=== PATIENT | male | born 1935 | race Caucasian/White ===

== ENCOUNTER 2018-03-26 22:52 | Inpatient (IN) | payer MEDICARE, OTHER ==
[~2018-03-26] VITALS: Ht 152.4 cm; Wt 74.8 kg
[2018-03-27] VITALS (57 sets, daily range): BP systolic 64–148; BP diastolic 36–64
[2018-03-27] MEDS ORDERED: ONDANSETRON HCL/PF 4 MG/2 ML VIAL IVP PRN (02:00)
--- NOTE | 2018-03-27 02:00 | NUR ---
PT ARRIVED DIRECT ADMISSION FROM [facility], ORALLY INTUBATED WITH A 7.5CM E.T.T @ 24MM LIP LINE, PT CURRENTLY ON MECH VENT WITH THE FOLLOWING SETTINGS OF: AC R16 VT 500 FIO2 40% PEEP+5. MECH VENT PLUGGED INTO RED OUTLET, BRAKES LOCKED, AND VENT ALARMS ARE SET AND AUDIBLE, PT AMBU BAG FOUND AT THE HEAD OF BED. PT WAS SUCTIONED AND LARGE AMOUNT OF THICK BARRETT RED TINGED SECRETIONS DRAWN BOTH ORALLY AND DOWN ETT. PT AWAKE ALERT AND TOLERATING SETTINGS WELL, MASON CHISHOLM AWARE AND AT BEDSIDE Addendum: 03/27/18 at 0207 by SINAI CRENSHAW RT Amended: Links added.
[2018-03-27] MEDS ORDERED: IV NS 0.9% 1,000 ML IV PRN (02:30)
[2018-03-27] MEDS: PROPOFOL 100 ML IV PRN ×3 (02:43→22:27)
[2018-03-27] MEDS ORDERED: PIPERACILLIN /TAZOBACTAM 3.375 G VIAL IV ONE (02:54)
[2018-03-27] MEDS ORDERED: ZOSYN IVPB 3.375 G in IV D5W 50ml IV ONE (03:00)
[2018-03-27] MEDS: PANTOPRAZOLE 40 MG VIAL IV SCH ×3 (03:01→20:58)
--- NOTE | 2018-03-27 03:20 | NUR ---
MOBILE DISC JOCKEY. ADMISSION RECEIVED THE PT FROM [facility],ORALLY INTUBATED. SEDATED WITH DIPRIVAN. FC INTACT. IV RT AND LT HAND OGT INTACT. ETT 7.5, LIP 24CM,AC 16,TV 500, FIO2 40%, PEEP 5. SAT 98%. INTERNATIONAL FIRST OFFICER SHOWING NSR. RABIA SOFT WRIST RESTRAINT. AFEBRILE. WILL CONTIN UE TO MONITOR VITALS.
--- NOTE | 2018-03-27 03:26 | NUR ---
PICTURE FRAMER.EGD AT 0800. CONSENT TAKEN AND PLACED IN THE CHART. PT IS NPO.
[2018-03-27 04:53] LABS: BASOPHILS % (AUTO) 0.3 % (0.0-2.0); EOSINOPHILS % (AUTO) 0.2 % (0.0-6.0); HEMATOCRIT 36 % (39-51); HEMOGLOBIN 11.9 g/dL (13.5-17.5); LYMPHOCYTES # (AUTO) 1.6 /CMM (0.8-4.8); MEAN CORPUSCULAR HGB CONC 33 g/dl (31.0-36.0); MEAN CORPUSCULAR VOLUME 93 fL (80-96); MONOCYTES % (AUTO) 7.7 % (2.0-12.0); NEUTROPHILS # (AUTO) 10.5 /CMM (1.8-8.9); NEUTROPHILS % (AUTO) 79.8 % (43.0-81.0); PLATELET COUNT (AUTO) 125 /CMM (150-450); RED BLOOD CELL COUNT(AUTO) 3.89 MIL/uL (4.5-6.0); WHITE BLOOD COUNT (AUTO) 13.1 K/uL (4.3-11.0)
--- NOTE | 2018-03-27 05:01 | NUR ---
GLASS TOUGHENING OPERATOR. AM CARE, ORAL ACRE, BED BATH GIVEN. LINEN CHANGED. REMAINING SAME VENT SETTING TOLERATED WELL. SAT 99%. MO ACUTE DISTRESS NOTED. FIRE PREVENTION INSPECTOR SHOWING NSR, IV RT AND LT HAND IVF NS 75ML/H, DIPRIVAN 30MCG/KG/MIN. OGT INTACT. PT IS NPO. RABIA SOFT WRIST RESTRAINT CHECKED AND RELEASED. NO INJURY OR REDNESS NOTED. FC PATENT URINE DRAINING. HOB ELEVATED. TURN AND REPOSITION Q2H. AFEBRILE. WILL CONTINUE TO MONITOR VITALS.
[2018-03-27 05:10] LABS: CARBON DIOXIDE 32 mmol/L (21-32); CHLORIDE 113 mmol/L (98-107); CREATININE 1.3 mg/dL (0.6-1.3); GLUCOSE 144 mg/dL (74-106); MAGNESIUM 1.7 mg/dL (1.8-2.4); PHOSPHORUS 2.5 mg/dL (2.5-4.9); POTASSIUM 3.8 mmol/L (3.5-5.1); SODIUM SERUM 149 mmol/L (136-145); UREA NITROGEN, BLOOD 34 mg/dL (7-18)
--- NOTE | 2018-03-27 07:30 | NUR ---
ICU/RN: Poison control called, updated - for EGD today at 0800. Spoke with Padmini Morris, Rx. [facility] ICU phone number provided. Poison control to call back to f/u EGD results.
[2018-03-27] MEDS: Magnesium 1GM/D5W 100ML PREMIX 100 ML IV SCH ×2 (07:45→08:44)
[2018-03-27] MEDS ORDERED: ANESTHESIA TRAY IN PYXIS 1 EA TRAY MC ONE (08:00)
[2018-03-27] MEDS ORDERED: ETOMIDATE 2 MG/ML VIAL ONE (08:07)
--- NOTE | 2018-03-27 08:30 | NUR ---
ICU/RN: S/P EGD by Dr Martinez. Per , "unable to visualize mucosa. Necrosis noted throughout esophagus to gastric fundus." Findings dw Dr Alarcon. Pt tolerated procedure well, VSS. New orders noted and carried out.
--- NOTE | 2018-03-27 08:52 | NUR ---
RT NOTE RECEIVED PT MECHANICALLY VENTILATED VIA 7.5 ETT 24 CM AT LIP. CUFF INFLATED. ETT SECURE. VENTILATOR SETTINGS FOLLOW AC 16 500 40% +5. BILATERAL CHEST RISE NOTEDF. ALARMS SET PER PROTOCOL AND AUDIBLE. VENT PLUGGED IN TO RED OUTLET. AMBU BAG AT BED SIDE. NO DISTRESS NOTED AT MOMENT. Addendum: 03/27/18 at 0854 by ELIOT VENCES RT Amended: Links added.
[2018-03-27] MEDS ORDERED: PIPERACILLIN /TAZOBACTAM 3.375 G in IV D5W 50 ML IV SCH (09:00)
[2018-03-27 09:40] LABS: ABG BASE EXCESS 5.5 mmol/L; ABG OXYGEN SATURATION 97.3 % (92.0-98.5); ABG PCO2 36.5 mmHg (35.0-45.0); ABG PH 7.512 (7.350-7.450); ABG PO2 98.9 mmHg (75.0-100.0); AaDO2 144.3 mmHg; COHb 0.4 % (0.5-1.5); MetHb 0.6 % (0.0-1.5); O2Hb 96.3 % (94.0-97.0); SITE, ABG Left Radial; VENT MODE, BG AC 16 550 40% +5
[2018-03-27] MEDS: PIPERACILLIN /TAZOBACTAM 3.375 G in IV D5W 100 ML IV SCH ×2 (09:54→17:32)
--- NOTE | 2018-03-27 10:30 | NUR ---
ICU/RN: Pt's and daughter at bedside; updated. Per daughter "I spoke with Dr Martinez," family is in agreement with plan.
[2018-03-27] MEDS ORDERED: IV NS 0.9% 1,000 ML IV ONE (12:30)
[2018-03-27] MEDS ORDERED: IV NS 0.9% 1,000 ML BAG IV PRN (12:30)
[2018-03-27] MEDS: IV NS 0.9% 1,000 ML IV PRN ×2 (12:33→19:06)
[2018-03-27] MEDS: ACETAMINOPHEN 650 MG/SUPP.RECT RC PRN (12:46)
--- NOTE | 2018-03-27 13:00 | NUR ---
ICU/RN: Pt noted with fever 102F, SBP in 70-80's. Placed on cooling measures, tylenol suppository administered. Dr Stein and Dr Alarcon aware, with orders for IV NS bolus. Cultures collected and sent. Will cont to monitor pt.
--- NOTE | 2018-03-27 15:00 | NUR ---
ICU/RN: Bed bath, hygienic care rendered. Placed on KCI mattress, turned and repositioned, heels offloaded. Pt tolerated well.
[2018-03-27] MEDS ORDERED: LOSA1TAB3 PO (17:42)
[2018-03-27] MEDS ORDERED: ASPI-605 PO (17:42)
[2018-03-27] MEDS ORDERED: FLUT1BLS IH (17:42)
[2018-03-27] MEDS ORDERED: CHOL100040 PO (17:42)
[2018-03-27] MEDS ORDERED: DUTA0.5C PO (17:42)
[2018-03-27] MEDS ORDERED: MECL-102 PO (17:42)
--- NOTE | 2018-03-27 19:13 | NUR ---
ICU/RN: Pt remains intubated in bed, tolerating current vent settings, sedated. IVF infusing well. FC draining well to gravity. Bedside report given to BRAN RN for JERRY.
--- NOTE | 2018-03-27 19:38 | NUR ---
curriculum supervisor. initial assessment.RECEIVED THE PT REST ON THE BED. ORALLY INTUBATED. SEDATED WITH DIPRIVAN. ETT 7.5,LIP 24CM.AC 16,TV 500,FIO2 40%. SAT 98%. NO ACUTE DISTRESS NOTED. TOOL FILER SHOWING NSR. IV RT AND LT HAND, IVF NS 150ML/H,DIPRIVAN 30MCG/KG/MIN, OGT INTACT. HOB ELEVATED, RABIA SOFT WRIST RESTRAINT CHECKED AND RELEASED. NO INJURY OR REDNESS NOTED, PT IS NPO. WILL CONTINUE TO MONITOR VITALS.
--- NOTE | 2018-03-27 19:55 | NUR ---
RT PT RECEIVED INTUBATED ON [facility] VENT W/ NOTED SETTING. ETT 7.5 @ 25CM LIP. ETT PATENT AND SECURE. BREATHSOUNDS BILATERAL. SX MOD AMOUNT OF THICK GREEN SECRETIONS. PT TOLERATING SETTING WELL. WILL CONTINUE TO MONITOR. Addendum: 03/27/18 at 1957 by GERMAN PRATT RT Amended: Links added.
[2018-03-27] MEDS: IV D5/0.45 NACL 1,000 ML IV PRN (23:26)
[2018-03-28] VITALS (70 sets, daily range): BP systolic 80–148; BP diastolic 39–119
[2018-03-28] MEDS: PIPERACILLIN /TAZOBACTAM 3.375 G in IV D5W 100 ML IV SCH ×3 (01:39→17:40)
--- NOTE | 2018-03-28 03:10 | NUR ---
DISSOLVER OPERATOR AM CARE. ORAL CARE BED BATH GIVEN. LINEN CHANGED. REMAINING SAME VENT SETTING TOLERATED WELL. SAT 98%. WIRELESS DEVELOPMENT MANAGER SHOWING S ROJAS. FC PATENT. URINE DRAINING. OGT CLAMPED. RABIA SOFT WRIST RESTRAINT CHECKED AND RELEASED, NO INJURY OR REDNESS NOTED. HOB ELEVATED. NPO. TURN AND REPOSITION Q2H. TEMPERATURE 99. WILL CONTINUE TO MONITOR VITALS,
[2018-03-28 04:34] LABS: BASOPHILS # (AUTO) 0.1 /CMM (0.0-0.2); BASOPHILS % (AUTO) 0.5 % (0.0-2.0); EOSINOPHILS % (AUTO) 0.4 % (0.0-6.0); HEMATOCRIT 35 % (39-51); HEMOGLOBIN 11.4 g/dL (13.5-17.5); LYMPHOCYTES # (AUTO) 1.9 /CMM (0.8-4.8); LYMPHOCYTES % (AUTO) 13.5 % (20.0-44.0); MEAN CORPUSCULAR HGB CONC 33 g/dl (31.0-36.0); MEAN CORPUSCULAR VOLUME 94 fL (80-96); MONOCYTES # (AUTO) 0.6 /CMM (0.1-1.30); MONOCYTES % (AUTO) 4.3 % (2.0-12.0); NEUTROPHILS # (AUTO) 11.4 /CMM (1.8-8.9); NEUTROPHILS % (AUTO) 81.3 % (43.0-81.0); PLATELET COUNT (AUTO) 105 /CMM (150-450); RED BLOOD CELL COUNT(AUTO) 3.67 MIL/uL (4.5-6.0)
[2018-03-28 04:52] LABS: ALANINE AMINOTRANSFERASE 19 U/L (12-78); ALBUMIN 2.2 g/dL (3.4-5.0); ALKALINE PHOSPHATASE 43 U/L (46-116); ASPARTATE AMINOTRANSFERASE 22 U/L (15-37); BILIRUBIN,TOTAL 0.6 mg/dL (0.2-1.0); CALCIUM, SERUM 7.1 mg/dL (8.5-10.1); CARBON DIOXIDE 27 mmol/L (21-32); CHLORIDE 106 mmol/L (98-107); CREATININE 1.3 mg/dL (0.6-1.3); PHOSPHORUS 2.3 mg/dL (2.5-4.9); POTASSIUM 3.1 mmol/L (3.5-5.1); SODIUM SERUM 140 mmol/L (136-145); TOTAL PROTEIN, SERUM 4.9 g/dL (6.4-8.2); UREA NITROGEN, BLOOD 26 mg/dL (7-18)
[2018-03-28 04:58] LABS: CHOLESTEROL 103 mg/dL (<200); HDL CHOLESTEROL 32 mg/dL (40-60); LDL 57 mg/dL (0-99); THYROID STIMULATING HORMONE 1.041 uIU/mL (0.358-3.74); TRIGLYCERIDES 103 mg/dL (30-150)
[2018-03-28 05:03] LABS: GLUCOSE 459 mg/dL (74-106)
--- NOTE | 2018-03-28 05:15 | NUR ---
LAB CALLED FOR BLOOD SUGAR IS 459. ACCU CHECK BLOOD SUGAR IS 117. CALLED THE LAB AND ORDERED REDRAW. WILL CONTINUE TO MONITOR.
[2018-03-28] MEDS: PROPOFOL 100 ML IV PRN ×3 (06:05→17:55)
--- NOTE | 2018-03-28 07:47 | NUR ---
INITIAL OUTREACH ASSISTANT NOTE RCVD PT SEDATED ON DIPRIVAN, INTUBATED TOLERATING ORDERED VENT SETTINGS WELL. BILATERAL SOFT WRIST RESTRAINTS IN PLACE, CIRCULATION CHECKS DONE. SR ON MONITOR WITH OCCASIONAL PAC's, OG-TUBE CLAMPED, PLACEMENT VERIFIED BY AUSCULTATION/ASPIRATION OF BROWN COLORED GASTRIC CONTENTS AND CHEST X-RAY, CARSON TO GRAVITY DRAINING ALLEN COLORED URINE. IV SITES C/D/I/PATENT. NO S/O INFILTRATION/PHLEBITIS OBSERVED IVF INFUSING ORDERED. WILL CONTINUE TO MONITOR PT FOR SAFETY AND COMFORT BED IN LOW AND LOCKED POSITION. CALL LIGHT WITHIN REACH. HEAD OF BED ELEVATED.
[2018-03-28] MEDS ORDERED: POTASSIUM PHOSPHATE MM 15 MMOL in IV D5W 250 ML IV SCH (08:00)
[2018-03-28] MEDS: PANTOPRAZOLE 40 MG VIAL IV SCH ×2 (09:22→21:18)
[2018-03-28] MEDS: POTASSIUM PHOSPHATE MM 7.5 MMOL in IV D5W 100 ML IV SCH ×2 (09:22→11:53)
[2018-03-28] MEDS: Z GUARD REMEDY 2 OZ OINT TP PRN (09:23)
[2018-03-28] MEDS: ACETAMINOPHEN 650 MG/SUPP.RECT RC PRN ×2 (09:23→17:39)
--- NOTE | 2018-03-28 10:07 | NUR ---
SEDATION VACATION PT'S FAMILY AT BEDSIDE SPEAKING TO PT IN [facility]. PT ABLE TO OPEN EYES TO NAME AT TIMES BUT NOT FOLLOWING COMMANDS. PER FAMILY PT'S HARD OF HEARING. UNABLE TO DETERMINE LEVEL OF COMPREHENSION.
--- NOTE | 2018-03-28 10:56 | NUR ---
LASER SET UP OPERATOR NOTE DR. SANTIAGO CAME TO ASSESS PT, PT'S FAMILY AT BEDSIDE DISCUSSED WITH DR. SANTIAGO PLAN TO DO BRONCHOSCOPY ON FRIDAY. PER PT'S DAUGHTER, JESSICA SHE WILL DISCUSS THE RECOMMENDATIONS WITH HER BROTHER AND DECIDE. DR. SLOAN IN UNIT UPDATED ON PT'S CONDITION AND REQUESTED PICC LINE INSERTION TO START TPN NUTRITION. ORDER PLACED. PT'S DAUGHTER WILL DISCUSS WITH FAMILY AND DECIDE PRIOR TO CONSENTING FOR LINE INSERTION. WILL F/U.
[2018-03-28] MEDS: IV D5/0.45 NACL 1,000 ML IV PRN ×2 (11:54→23:38)
--- NOTE | 2018-03-28 14:01 | NUR ---
EMPLOYEE SERVICE OFFICER NOTE JESSICA, PT'S DAUGHTER PROVIDED CONSENT FOR PICC LINE INSERTION. HORTENCIA DYER CO-SIGNED CONSENT. BRONCHOSCOPY CONSENT STILL PENDING. WILL F/U.
--- NOTE | 2018-03-28 18:46 | NUR ---
PERFORMANCE SOLUTIONS SPECIALIST NOTE PT REMAINS STABLE, SEDATED, INTUBATED TOLERATING ORDERED VENT SETTINGS. SB ON MONITOR WITH OCCASIONAL PAC's, OG-TUBE CLAMPED, CARSON TO GRAVITY DRAINING ALLEN COLORED URINE. PICC LINE PLACED AND DR. VASQUEZ INFORMED TO PROCEED WITH TPN. WILL CONTINUE TO MONITOR PT FOR SAFETY AND COMFORT. BED IN LOW AND LOCKED POSITION. CALL LIGHT WITHIN REACH. HEAD OF BED ELEVATED.
--- NOTE | 2018-03-28 19:00 | NUR ---
MMA FIGHTER NOTES Received patient orally intubated on AC mode,not in nay distress,breathing unlabored,on mild sedation with Propofol RASS -2,opens eyes,+ strong cough and gag,moves both arms and legs but weakly. OGT clamped.Comfort care done,needs attended.
[2018-03-29] VITALS (38 sets, daily range): BP systolic 45–158; BP diastolic 39–64
--- NOTE | 2018-03-29 | NUR ---
SUPERVISOR PILE DRIVING NOTES STATUS UNCHANGED,STABLE,NOT IN ANY DISTRESS,MILDLY SEDATED,AROUSABLE,OPENS EYES,MOVES EXTREMITIES,DOES NOT FOLLOW COMMANDS.
[2018-03-29] MEDS: PROPOFOL 100 ML IV PRN ×3 (02:01→20:01)
[2018-03-29] MEDS: PIPERACILLIN /TAZOBACTAM 3.375 G in IV D5W 100 ML IV SCH ×3 (02:01→17:06)
--- NOTE | 2018-03-29 04:00 | NUR ---
TIMBER HARVESTER OPERATOR NOTES REMAINS STABLE,NOT IN ANY DISTRESS, STILL ON PROPOFOL (MILDLY SEDATED) STILL RESPONSIVE TO VERBAL STIMULI,OPENS EYES,MOVES EXTREMITIES.
[2018-03-29 04:39] LABS: BASOPHILS % (AUTO) 0.3 % (0.0-2.0); EOSINOPHILS % (AUTO) 1.3 % (0.0-6.0); HEMATOCRIT 30 % (39-51); HEMOGLOBIN 10.1 g/dL (13.5-17.5); LYMPHOCYTES # (AUTO) 1.4 /CMM (0.8-4.8); LYMPHOCYTES % (AUTO) 10.9 % (20.0-44.0); MEAN CORPUSCULAR HGB CONC 34 g/dl (31.0-36.0); MEAN CORPUSCULAR VOLUME 93 fL (80-96); MONOCYTES # (AUTO) 0.7 /CMM (0.1-1.30); MONOCYTES % (AUTO) 5.1 % (2.0-12.0); NEUTROPHILS # (AUTO) 10.7 /CMM (1.8-8.9); NEUTROPHILS % (AUTO) 82.4 % (43.0-81.0); PLATELET COUNT (AUTO) 87 /CMM (150-450); RED BLOOD CELL COUNT(AUTO) 3.24 MIL/uL (4.5-6.0); WHITE BLOOD COUNT (AUTO) 12.9 K/uL (4.3-11.0)
[2018-03-29 04:45] LABS: CALCIUM, SERUM 7.6 mg/dL (8.5-10.1); CARBON DIOXIDE 29 mmol/L (21-32); CHLORIDE 108 mmol/L (98-107); CREATININE 1.1 mg/dL (0.6-1.3); GLUCOSE 113 mg/dL (74-106); PHOSPHORUS 2.6 mg/dL (2.5-4.9); POTASSIUM 3.1 mmol/L (3.5-5.1); SODIUM SERUM 142 mmol/L (136-145); UREA NITROGEN, BLOOD 24 mg/dL (7-18)
--- NOTE | 2018-03-29 07:10 | NUR ---
SCHOOL BUS INSPECTOR NOTES REMAINS STABLE,REPORT GIVEN TO DAY SHIFT RN. AFSATU
--- NOTE | 2018-03-29 07:30 | NUR ---
EPIDEMIOLOGIST INITIAL NOTES: RECEIVED PT FROM NIGHTSILFT NURSE IN STABLE CONDITION. PT IS SEDATED AND ON A DIPROVAN DRIP AT 20MIC.. NO SOB OR ACUTE SIGNS OF DISTRESS NOTED. BREATHING IS EVEN AND UNLABORED. PT ON BIPAP 18/5 WITH A RATE OF 16 AND AN FIO2 OF 50% AND A CURRENT 02 SAT OF 96%. HE DENIES ANY PAIN AT THIS TIME. CARSON CATHETER NOTED TO BE INTACT AND DRAINING. LEFT UPPER ARM MIDLINE AND LEFT FA PERIPHERAL IVS NOTED TO BE PATENT AND INTACT. NO REDNESS OR SIGNS OF INFILTRATION NOTED. BED IN LOW LOCKED POSITION, SIDE RIALS UP X2, CALL LIGHT WITHIN REACH. WILL CONTINUE TO MONITOR Addendum: 03/29/18 at 1051 by ANDREZ VOGT RN PLEASE DISREGARD THIS NOTE
--- NOTE | 2018-03-29 07:36 | NUR ---
COAT JOINER LOCKSTITCH INITIAL NOTES: RECEIVED PT FROM NIGHTSOHFT NURSE IN STABLE CONDITION. PT IS SEDATED AND ON A DIPRIVAN DRIP AT 20MCG. NO SOB OR ACUTE SIGNS OF DISTRESS NOTED. BREATHING IS EVEN AND UNLABORED. PT INTUBATED (7.5, 24CM AT PT'S LIP, RATE OF 16, TV 500, PEEP 0). CARSON CATHETER NOTED TO BE INTACT AND DRAINING. RIGHT UPPER ARM PICC NOTED TO BE PATENT AND INTACT. PT TOLERATING D5 1/2 NS INFUSION WELL. NO REDNESS OR SIGNS OF INFILTRATION NOTED. BILATERAL SOFT WRIST RESTRAINTS NOTED FOR FURTHER SAFETY AND SELF EXTUBATION PREVENTION. GOOD PERIPHERAL CAP REFILL NOTED ALONG WITH PULSES. BED IN LOW LOCKED POSITION, SIDE RIALS UP X3, CALL LIGHT WITHIN REACH. WILL CONTINUE TO MONITOR
[2018-03-29] MEDS: PANTOPRAZOLE 40 MG VIAL IV SCH ×2 (08:33→20:59)
[2018-03-29] MEDS: IV D5/0.45 NACL 1,000 ML IV PRN (08:34)
[2018-03-29] MEDS: POTASSIUM CL. PREMIX PERIPHER. 50 ML IV SCH ×4 (09:38→12:49)
[2018-03-29] MEDS ORDERED: DEXTROSE 50%-WATER 50 ML DISP.SYRIN IV PRN (10:30)
[2018-03-29] MEDS ORDERED: TPN/PPN PER PHARMACY XX PRN (10:30)
[2018-03-29 11:53] LABS: ABG BASE EXCESS -0.2 mmol/L; ABG OXYGEN SATURATION 97.4 % (92.0-98.5); ABG PCO2 36.8 mmHg (35.0-45.0); ABG PO2 108.2 mmHg (75.0-100.0); AaDO2 134.7 mmHg; COHb 0.3 % (0.5-1.5); MetHb 0.8 % (0.0-1.5); O2Hb 96.3 % (94.0-97.0); PEEP,BG 5 cm H2O; SITE, ABG Right Radial; VT, ABG 500 mL
[2018-03-29] MEDS: BLOOD SUGAR DIAGNOSTIC 1 EACH STRIP IN SCH ×3 (12:00→23:25)
[2018-03-29] MEDS ORDERED: FEE TPN 1 MIN EA MC ONE (12:30)
[2018-03-29] MEDS ORDERED: TPN BAG #1 IV PRN ×5 (12:30)
--- NOTE | 2018-03-29 18:02 | NUR ---
CLIENT SUCCESS MANAGER NOTES: GI CONSULT (PASCUAL BUNK HOUSE WORKER ORDERS) PASCUAL GI BUNK HOUSE WORKER AT BEDSIDE AND UPDATED ON PT'S CONDITION. PER BUNK HOUSE WORKER "ORDER CARAFATE KENDY 1G TID VIA OG TUBE"
--- NOTE | 2018-03-29 18:55 | NUR ---
FLOOR COVERING PRINTER ASSISTANT CLOSING NOTES PT REMAINS STABLE ON FULL VENT SUPPORT. NO SOB OR ACUTE SIGNS OF DISTRESS NOTED. BP STABLE AT THIS TIME. AM AND PRN CARE PROVIDED. PT REPOSITIONED AND TURNED PER HOSPITAL PROTOCOL. RIGHT UPPER ARM PICC REMAINS PATENT AND INTACT. PT TOLERATING TPN , IV FLUIDS, AND DIPRIVAN DRIP AT 25MIC. SAFETY MEASURES IN PLACE. CARSON CATHETER REMAINS PATENT AND INTACT. VSS. WILL ENDORSE TO NIGHTSHIFT RN FOR JERRY
--- NOTE | 2018-03-29 19:30 | NUR ---
SUPERVISOR SHUTTLE PREPARATION NOTE PT [facility]CE[facility] WITH SETTINGS WELL TOLERATED AND SATURATING 100%. ETT 7.5 AND 24 @ THE LIP. HOB ELEVATED AND ON ASPIRATION PRECAUTIONS. BREATHING UNLABORED. TELE-SB 50. OG TUBE IN PLACE WITH POSITIVE PLACEMENT AND CLAMPED. IV R ARM #18 AND L WRIST #20 CLEAN, DRY AND PATENT. IV BALAJI PICC WITH TPN INFUSING @ 50ML/HR, DIP @ 25 MCG/KG/MIN, AND D5 1/2 NS INFUSING @ 50 ML/HR. CARSON CATHETER IN PLACE AND DRAINING BY GRAVITY. WILL CONTINUE TO MONITOR.
--- NOTE | 2018-03-29 20:00 | NUR ---
PT RECEIVED INTUBATED ON [facility] VENT W/ NOTED SETTING. ETT 7.5 @ 25CM LIP. ETT PATENT AND SECURE. BREATH SOUNDS BILATERAL. SX MOD AMOUNT OF THICK GREEN SECRETIONS. PT TOLERATING SETTING WELL. WILL CONTINUE TO MONITOR. Addendum: 03/29/18 at 2000 by DILEEP KINNEY RT Amended: Links added.
[2018-03-29] MEDS: ACETAMINOPHEN 650 MG/SUPP.RECT RC PRN (20:59)
[2018-03-30] VITALS (57 sets, daily range): BP systolic 90–177; BP diastolic 35–88
[2018-03-30] MEDS: PIPERACILLIN /TAZOBACTAM 3.375 G in IV D5W 100 ML IV SCH ×3 (01:14→17:41)
[2018-03-30] MEDS: IV D5/0.45 NACL 1,000 ML IV PRN ×2 (03:00→22:51)
[2018-03-30 04:42] LABS: BASOPHILS # (AUTO) 0.1 /CMM (0.0-0.2); BASOPHILS % (AUTO) 0.5 % (0.0-2.0); EOSINOPHILS % (AUTO) 2.5 % (0.0-6.0); HEMATOCRIT 31 % (39-51); HEMOGLOBIN 10.3 g/dL (13.5-17.5); LYMPHOCYTES # (AUTO) 2.3 /CMM (0.8-4.8); LYMPHOCYTES % (AUTO) 20.6 % (20.0-44.0); MEAN CORPUSCULAR HGB CONC 33 g/dl (31.0-36.0); MEAN CORPUSCULAR VOLUME 93 fL (80-96); MONOCYTES # (AUTO) 0.6 /CMM (0.1-1.30); MONOCYTES % (AUTO) 5.2 % (2.0-12.0); NEUTROPHILS # (AUTO) 7.8 /CMM (1.8-8.9); NEUTROPHILS % (AUTO) 71.2 % (43.0-81.0); PLATELET COUNT (AUTO) 94 /CMM (150-450); RED BLOOD CELL COUNT(AUTO) 3.35 MIL/uL (4.5-6.0)
[2018-03-30 04:51] LABS: CALCIUM, SERUM 7.8 mg/dL (8.5-10.1); CARBON DIOXIDE 26 mmol/L (21-32); CHLORIDE 109 mmol/L (98-107); CREATININE 1.1 mg/dL (0.6-1.3); GLUCOSE 120 mg/dL (74-106); PHOSPHORUS 3.1 mg/dL (2.5-4.9); POTASSIUM 3.5 mmol/L (3.5-5.1); SODIUM SERUM 142 mmol/L (136-145); UREA NITROGEN, BLOOD 21 mg/dL (7-18)
[2018-03-30] MEDS: PROPOFOL 100 ML IV PRN ×3 (05:06→18:24)
[2018-03-30] MEDS: BLOOD SUGAR DIAGNOSTIC 1 EACH STRIP IN SCH ×4 (05:06→23:20)
--- NOTE | 2018-03-30 06:46 | NUR ---
APPRENTICE PATTERN MAKER NOTE PT REMAINED STABLE DURING SHIFT. NO ACUTE DISTRESS NOTED. VENT SETTINGS WELL TOLERATED. ETT 7.5 AND 24CM AT UPPER LIP. SUCTIONED NEEDED. REPOSITIONED Q2H. ALL NEEDS ATTENDED TO PROMPTLY. KEPT CLEAN AND DRY. AFEBRILE. IV FLUIDS INFUSING. WILL ENDORSE TO NEXT SHIFT FOR CONTINUITY OF CARE.
--- NOTE | 2018-03-30 08:16 | NUR ---
INITIAL OCCUPATIONAL HEALTH RN NOTE RCVD PT SEDATED ON DIPRIVAN AROUSES TO PAINFUL STIMULI, INTUBATED ETT 7.5 24 AT UPPER LIP LINE, TOLERATING ORDERED VENT SETTINGS. SB ON MONITOR. OG-TUBE PLACEMENT VERIFIED BY AUSCULTATION/ASPIRATION OF GASTRIC CONTENTS. CARSON TO GRAVITY DRAINING ALLEN COLORED URINE. IV SITES C/D/I/PATENT. NO S/O INFILTRATION/PHLEBITIS OBSERVED IVF INFUSING ORDERED. WILL CONTINUE TO MONITOR PT FOR SAFETY AND COMFORT. BED IN LOW AND LOCKED POSITION. CALL LIGHT WITHIN REACH. HEAD OF BED ELEVATED.
[2018-03-30 08:58] LABS: ABG BASE EXCESS -1.2 mmol/L; ABG OXYGEN SATURATION 97.2 % (92.0-98.5); ABG PCO2 37.9 mmHg (35.0-45.0); ABG PH 7.405 (7.350-7.450); ABG PO2 99.2 mmHg (75.0-100.0); AaDO2 106.3 mmHg; COHb 0.3 % (0.5-1.5); MetHb 0.5 % (0.0-1.5); O2Hb 96.4 % (94.0-97.0); SITE, ABG Left Radial; VENT MODE, BG AC 16 500 35% +0
[2018-03-30] MEDS: PANTOPRAZOLE 40 MG VIAL IV SCH ×2 (09:25→20:25)
[2018-03-30] MEDS: SUCRALFATE 1 G/10 ML UDC GT SCH ×3 (09:25→17:32)
[2018-03-30] MEDS ORDERED: TPN BAG #2 IV PRN ×6 (11:30)
--- NOTE | 2018-03-30 11:34 | NUR ---
RT RECD PT INTUBATED WITH 7.5 ETT AT 24CM LIP [facility] YVONNE ORDERED SETTING ALARMS ON AND AUDIBLE BAG AND MASK AT HOB VENT PLUGGED IN RED OUTLET, SX THICK YELLOW SECRETIONS. ABG DRAWN AND GIVE TO DR SANTIAGO NO RESP DISTRESS ATT WILL OCNT TO MONITOR . BRONCH SCHEDULE IN THE AFTERNOON
[2018-03-30] MEDS ORDERED: HYDROMORPHONE INJ 2 MG/ML DISP.SYRIN ONE (14:24)
[2018-03-30] MEDS ORDERED: TPN BAG #3 IV PRN ×3 (14:30)
[2018-03-30] MEDS ORDERED: HYDROMORPHONE INJ 2 MG/ML DISP.SYRIN IV ONE (14:30)
--- NOTE | 2018-03-30 15:10 | NUR ---
SCREW CUTTER NOTE BRONCHOSCOPY DONE AT BEDSIDE, PT TOLERATED PROCEDURE WELL ONCE FULLY SEDATED. DR. SANTIAGO, 2 RT's AND RN AT BEDSIDE MONITORING PT. VITAL SIGNS REMAINED STABLE THROUGHOUT PROCEDURE (PLEASE REFER TO FLOW-SHEET). DR. SANTIAGO SPOKE WITH PT'S DAUGHTER, JESSICA OVER THE PHONE UPDATING HER ON PT'S STATUS. WILL CONTINUE TO MONITOR PT AND TITRATING DIPRIVAN TO RASS -2.
--- NOTE | 2018-03-30 18:41 | NUR ---
FINISHING LAB TECHNICIAN NOTE PT REMAINS STABLE, INTUBATED, LIGHTLY SEDATED RASS -2, TOLERATING ORDERED VENT SETTINGS WELL, SB WITH OCCASIONAL PACs ON MONITOR (DR. BURGER INFORMED ABOUT PT'S LOW HR 39 THIS AM AND SHOWN ECG DONE DURING STEWARD/STEWARDESS THIRD). OG-TUBE CLAMPED PLACEMENT VERIFIED BY ASPIRATION OF GASTRIC CONTENTS. CARSON TO GRAVITY DRAINING YELLOW URINE. IV SITES C/D/I/PATENT. NO S/O INFILTRATION/PHLEBITIS OBSERVED, IVF INFUSING ORDERED. PT'S CARE WILL BE ENDORSED TO STEWARD/STEWARDESS THIRD RN FOR CONTINUITY OF CARE. BED IN LOW AND LOCKED POSITION. CALL LIGHT WITHIN REACH. HEAD OF BED ELEVATED. BILATERAL WRIST RESTRAINTS IN PLACE, CIRCULATION CHECKS DONE.
--- NOTE | 2018-03-30 19:30 | NUR ---
CONDENSER TUBE TENDER NOTE PT [facility]. [facility] WITH SETTINGS WELL TOLERATED AND SATURATING 100%. ETT 7.5 AND 25 @ THE LOWER LIP. HOB ELEVATED AND ON ASPIRATION PRECAUTIONS. BREATHING UNLABORED. AFEBRILE. TELE-SB 48. OG TUBE IN PLACE WITH POSITIVE PLACEMENT, NO RESIDUALS AND CLAMPED. IV R ARM #18 AND L WRIST #20 CLEAN, DRY AND PATENT. IV BALAJI PICC WITH TPN INFUSING @ 50ML/HR, DIP @ 20 MCG/KG/MIN, AND D5 1/2 NS INFUSING @ 50 ML/HR. CARSON CATHETER IN PLACE AND DRAINING BY GRAVITY. WILL CONTINUE TO MONITOR.
--- NOTE | 2018-03-30 20:58 | NUR ---
PT INTUBATED 7.5 ETT SECURED AT 25CM AT THE LIP. NO RESP DISTRESS NOTED. PT TOLERATING VENT SETTINGS. SX'D AND LAVAGE FOR SML AMT OF THIN WHITE SECRETIONS. VENT ALARMS SET AND AUDIBLE. AMBU BAG AT BEDSIDE. VENT PLUGGED INTO RED OUTLET. WILL CONTINUE TO MONITOR. Addendum: 03/30/18 at 2100 by JAMAL VELEZ RT Amended: Links added.
[2018-03-31] VITALS (51 sets, daily range): BP systolic 84–170; BP diastolic 34–102
[2018-03-31] MEDS: PIPERACILLIN /TAZOBACTAM 3.375 G in IV D5W 100 ML IV SCH ×3 (02:10→17:04)
[2018-03-31 04:59] LABS: CALCIUM, SERUM 7.9 mg/dL (8.5-10.1); CARBON DIOXIDE 27 mmol/L (21-32); CHLORIDE 109 mmol/L (98-107); GLUCOSE 104 mg/dL (74-106); MAGNESIUM 1.7 mg/dL (1.8-2.4); PHOSPHORUS 2.5 mg/dL (2.5-4.9); POTASSIUM 3.3 mmol/L (3.5-5.1); SODIUM SERUM 141 mmol/L (136-145); UREA NITROGEN, BLOOD 21 mg/dL (7-18)
[2018-03-31] MEDS: PROPOFOL 100 ML IV PRN ×3 (05:09→18:43)
[2018-03-31] MEDS: BLOOD SUGAR DIAGNOSTIC 1 EACH STRIP IN SCH ×4 (05:09→23:39)
--- NOTE | 2018-03-31 07:30 | NUR ---
RECEIVED PATIENT SEDATED AWAKE TO LIGHT TOUCH CALM AND COOPERATIVE. VENT PER MD ORDER. ETT 7.5. IV SITE C/D/I/P WITH MEDICATIONS RUNNING PER SPREADSHEET. CARSON PATENT. SAFETY, SKIN, ASPIRATION PRECAUTIONS IN PLACE AND WILL MONITOR
--- NOTE | 2018-03-31 08:06 | NUR ---
DR BURGER AT BEDSIDE. UPDATED ON PATIENT. NO NEW ORDERS AT THIS TIME
[2018-03-31] MEDS: SUCRALFATE 1 G/10 ML UDC GT SCH ×3 (08:19→17:04)
[2018-03-31] MEDS: PANTOPRAZOLE 40 MG VIAL IV SCH ×2 (08:20→21:37)
[2018-03-31] MEDS: POTASSIUM CL. PREMIX PERIPHER. 50 ML IV SCH ×4 (09:15→13:28)
[2018-03-31] MEDS: Magnesium 1GM/D5W 100ML PREMIX 100 ML IV SCH ×2 (09:15→10:39)
--- NOTE | 2018-03-31 10:51 | NUR ---
DR SANTIAGO AND DR JOSE HARPER AT BEDSIDE Addendum: 03/31/18 at 1052 by CLINTON ALEXIS RN JAZZY PIZARRO AT BEDSIDE. OCTAVIO HARPER
[2018-03-31] MEDS ORDERED: TPN BAG # 5 IV PRN ×5 (11:00)
[2018-03-31] MEDS ORDERED: TPN BAG #4 IV PRN ×7 (11:00)
[2018-03-31] MEDS: INSULIN REGULAR, HUMAN 100 UNIT/ML 3 ML VIAL SQ PRN (12:30)
[2018-03-31] MEDS: Z GUARD REMEDY 2 OZ OINT TP PRN (12:35)
--- NOTE | 2018-03-31 17:43 | NUR ---
PASCUAL CONCEPCION AT BEDSIDE. AWARE PATIENT ABD SLIGHTLY DISTENDED AND FIRM. OK FOR KUB ROUTINE
--- NOTE | 2018-03-31 18:21 | NUR ---
RT END OF THE SHIFT REPORT; PT. 82 Y OLD MALE REC. @0700 AM ORALLY INTUBATED ETT # 7.5 @ 25CM LIP LINE WITH NOTED SETTINGS, AC,16,500, 35% ALARMS ARE SET. AND FUNCTIONAL/ VENT ON RED OUTLET, AMBU BAG AT THE BEDSIDE. EQUAL CHEST RISE NOTED. PT. NOT AWAKE AND OFF SEDATION SOME WHAT RESPONSIVE, HME CHANGED PT. YVONNE. WELL AND B/S BILATERALLY RHONCHI SUX'D FOR MOD AMT OF BROWN/REDDISH SECRETIONS. NO CHANGES. T/O SHIFT CONTINUE TO MONITOR AND REPORT WILL PASS TO PM SHIFT. Addendum: 03/31/18 at 1824 by LILLY CLOUD RT Amended: Links added.
[2018-03-31] MEDS: IV D5/0.45 NACL 1,000 ML IV PRN (18:44)
--- NOTE | 2018-03-31 19:14 | NUR ---
ALL DUE MEDS GIVEN AND ALL NEEDS MET. KUB TAKEN. REPORT GIVEN TO MASON ORTIZ FOR JERRY. IV SITES C/D/I/P AND MEDICATIONS PER ORDER; SEE SPREADSHEET. PATIENT VSS. AFEBRILE. SAFETY, SKIN, ASPIRATION PRECAUTIONS IN PLACE AND MONITORED THROUGHOUT DAY.
--- NOTE | 2018-03-31 19:24 | NUR ---
agricultural equipment salesperson. initial assessment. received the pt rest on the bed. orally intubated. sedated with diprivan. . ett 7.5cm,lip 25cm,ac 16,tv 500,fio2 35%. sat 100%. back padder showing nsr. iv rt upperarm piccline ivf d51/2ns 50ml/h,tpn 70ml/h, diprivan 35mcg/kg/min. ogt intact. fc patent. urine draining. sruthi soft wrist restraint checked and released. no injury or redness noted. pt is npo. will continue to monitor vitals.
[2018-03-31] MEDS: HYDROMORPHONE INJ 0.5 MG/0.5 ML SYRINGE IV PRN (21:37)
--- NOTE | 2018-03-31 21:41 | NUR ---
PT INTUBATED 7.5 ETT SECURED AT 25CM AT THE LIP. NO RESP DISTRESS NOTED. PT TOLERATING VENT SETTINGS. SX'D AND LAVAGE FOR SML AMT OF THIN WHITE SECRETIONS. VENT ALARMS SET AND AUDIBLE. AMBU BAG AT BEDSIDE. VENT PLUGGED INTO RED OUTLET. WILL CONTINUE TO MONITOR. Addendum: 03/31/18 at 2141 by JAMAL VELEZ RT Amended: Links added.
[2018-04-01] VITALS (44 sets, daily range): BP systolic 88–169; BP diastolic 32–80
[2018-04-01] MEDS: PIPERACILLIN /TAZOBACTAM 3.375 G in IV D5W 100 ML IV SCH ×3 (01:33→17:14)
[2018-04-01] MEDS: PROPOFOL 100 ML IV PRN ×4 (01:34→17:18)
--- NOTE | 2018-04-01 04:02 | NUR ---
PROTECTIVE SIGNAL SUPERINTENDENT AM CARE, GIVEN. REMAINING SAME VENT SETTING TOLERATED WELL. SAT 98%. NO ACUTE DISTRESS NOTED. SOFTWARE CONFIGURATION MANAGER SHOWING S ROJAS. IV RT UPPER ARM PICC LINE.REMAINING SAME IVF , TPN AND DIPRIVAN 25MCG/KG/MIN. FC PATENT. URINE DRAINING. OGT INTACT. CLAMPED. HOB ELEVATED. RABIA SOFT WRIST RESTRAINT RESTRAINT CHECKED AND RELEASED. NO INJURY OR REDNESS NOTED. WILL CONTINUE TO MONITOR VITALS.
[2018-04-01 04:23] LABS: BASOPHILS % (AUTO) 0.5 % (0.0-2.0); EOSINOPHILS % (AUTO) 2.3 % (0.0-6.0); HEMATOCRIT 27 % (39-51); LYMPHOCYTES # (AUTO) 1.1 /CMM (0.8-4.8); LYMPHOCYTES % (AUTO) 15.3 % (20.0-44.0); MEAN CORPUSCULAR HGB CONC 33 g/dl (31.0-36.0); MEAN CORPUSCULAR VOLUME 93 fL (80-96); MONOCYTES # (AUTO) 0.5 /CMM (0.1-1.30); MONOCYTES % (AUTO) 6.8 % (2.0-12.0); NEUTROPHILS # (AUTO) 5.4 /CMM (1.8-8.9); NEUTROPHILS % (AUTO) 75.1 % (43.0-81.0); PLATELET COUNT (AUTO) 106 /CMM (150-450); RED BLOOD CELL COUNT(AUTO) 2.93 MIL/uL (4.5-6.0); WHITE BLOOD COUNT (AUTO) 7.3 K/uL (4.3-11.0)
[2018-04-01 04:33] LABS: CALCIUM, SERUM 7.8 mg/dL (8.5-10.1); CARBON DIOXIDE 25 mmol/L (21-32); CHLORIDE 112 mmol/L (98-107); CREATININE 0.9 mg/dL (0.6-1.3); GLUCOSE 133 mg/dL (74-106); PHOSPHORUS 2.3 mg/dL (2.5-4.9); POTASSIUM 3.7 mmol/L (3.5-5.1); SODIUM SERUM 145 mmol/L (136-145); UREA NITROGEN, BLOOD 21 mg/dL (7-18)
[2018-04-01] MEDS: HYDROMORPHONE INJ 0.5 MG/0.5 ML SYRINGE IV PRN ×2 (05:42→15:56)
[2018-04-01] MEDS: BLOOD SUGAR DIAGNOSTIC 1 EACH STRIP IN SCH ×3 (05:46→17:24)
--- NOTE | 2018-04-01 07:15 | NUR ---
RN INITIAL NOTES: Rec'd pt on bed, sedated, not in any distress. On MV via ETT, sating at 100%. On telemonitor, SB 47bpm. Has OGT, clamped. Has FC draining to BSB w/ adequate yellowish UOP. Has BALAJI PICC line, TLC w/ Diprivan at 25 mcg, D5 1/2 NS x 50 cc/hr, & TPN x 70 cc/hr all infusing well. Has also BALAJI G18 & L wrist G20, SL w/ no s/sx of infection/infiltration noted. Safety precaution in place. Bed in lowest & locked pos. Will continue to monitor & attend pt needs. Per report pt is scheduled for bronchoscopy procedure at 4pm. Consent signed & secured.
--- NOTE | 2018-04-01 07:25 | NUR ---
RT Pt received orally intubated with a 7.5 ETT secured at 25cm at the lip line. Pt is currently sedated at this time but responds to stimuli when sx'd. Vent alarms are set and audible with BVM by bedside. MECHANIC AND WELDER cuff pressure noted. Vent is plugged into red outlet. Pt sx'd moderate thick pale yellow secretions. No respiratory distress noted at this time, will continue to monitor. Addendum: 04/01/18 at 0942 by KIRAN RIBEIRO RT Amended: Links added.
--- NOTE | 2018-04-01 08:30 | NUR ---
Dr. Alarcon w/ RT deflated pt's ET cuff & assessed pt's upper airway & breathing.
[2018-04-01] MEDS: PANTOPRAZOLE 40 MG VIAL IV SCH ×2 (09:05→20:52)
[2018-04-01] MEDS: SUCRALFATE 1 G/10 ML UDC GT SCH ×3 (09:05→17:13)
[2018-04-01] MEDS: Z GUARD REMEDY 2 OZ OINT TP PRN (09:09)
--- NOTE | 2018-04-01 11:00 | NUR ---
FERNANDO Key made aware re: pharmacy recommendation (spoke w/ Toni), to increase TPN at 80 cc/hr & adjust current IVF D5 1/2 NS. CAMP HEAD COUNSELOR ordered to change current IVF to TKO & follow pharmacy's recommendation. Toni made aware.
[2018-04-01] MEDS: IPRATROPIUM NEB FS 0.5 MG/2.5 ML AMPUL.NEB NEB SCH ×4 (11:16→22:59)
[2018-04-01] MEDS: ALBUTEROL HALF STRENGTH 1.25 MG/3 ML VIAL.NEB NEB SCH ×4 (11:16→22:59)
[2018-04-01] MEDS: methylPREDNISolone SOD SUCC 125 MG/2ML VIAL IV SCH ×2 (11:17→17:13)
[2018-04-01] MEDS ORDERED: ALBUTEROL HALF STRENGTH 1.25 MG/3 ML VIAL.NEB NEB SCH (11:30)
[2018-04-01] MEDS ORDERED: TPN BAG #5 IV PRN ×6 (11:38)
[2018-04-01] MEDS ORDERED: TPN BAG #6 IV PRN ×8 (12:00)
[2018-04-01] MEDS ORDERED: TPN BAG #7 IV PRN ×6 (12:00)
[2018-04-01] MEDS: INSULIN REGULAR, HUMAN 100 UNIT/ML 3 ML VIAL SQ PRN ×2 (12:08→17:25)
[2018-04-01] MEDS ORDERED: LIDOCAINE 2% JEL UROJET 10 ML MM ONE (15:00)
--- NOTE | 2018-04-01 16:00 | NUR ---
Dr. Alarcon ordered to increase Diprivan rate to 100 mcg/kg/min & give Dilaudid 1mg IVP x1 prior to start of bronchoscopy procedure. MD made aware that pt had an episode of SBP 90's this AM. Per MD, just give 0.5mg of Dilaudid IVP x1. Pt tolerated well the procedure w/ no untoward events, VS stable. Per MD may resume previous rate of Diprivan. POC to wean the pt tomorrow. Dtr of pt called & updated about pt condition s/p bronchoscopy. Dilaudid 0.5 mg IV syringe was wasted in the omnicell & medication was discarded in the RX Destroyer - this was witness by CARMEN Jensen RN. Called pharmacy & spoke w/ [place] & informed about this.
--- NOTE | 2018-04-01 16:15 | NUR ---
RT Bronchoscopy done by Dr. Alarcon. Procedure was done with no complications. Pt is stable with no respiratory distress. Addendum: 04/01/18 at 1711 by KIRAN RIBEIRO RT Amended: Links added.
[2018-04-01] MEDS ORDERED: IV NS 0.9% 250 ML IV PRN (17:30)
--- NOTE | 2018-04-01 18:45 | NUR ---
RN CLOSING NOTES: Pt tolerated bronchoscopy procedure. Tolerated MV settings via ETT, no SOB. On telemonitor, still SB. OGT, kept clamped. FC kept patent & intact draining to BSB w/ adequate yellowish UOP. BALAJI PICC line, TLC w/ Diprivan at 20 mcg/kg/min & TPN x 80 cc/hr infusing well. L wrist G20, SL C/D/I w/ no s/sx of infection/infiltration noted. Safety precaution kept in place. Bed in lowest & locked pos. Will endorse to PM RN for JERRY.
--- NOTE | 2018-04-01 19:30 | NUR ---
TOP DYEING MACHINE TENDER NOTE PT RECEIVED SED[facility]. [facility] WITH SETTINGS WELL TOLERATED AND SATURATING 100%. ETT 7.5 AND 25 @ THE LOWER LIP. HOB ELEVATED AND ON ASPIRATION PRECAUTIONS. BREATHING UNLABORED. AFEBRILE. TELE-SB 55. OG TUBE IN PLACE WITH POSITIVE PLACEMENT, NO RESIDUALS AND CLAMPED. IV L WRIST #20 CLEAN, DRY AND PATENT. IV BALAJI PICC WITH TPN INFUSING @ 80ML/HR, DIP @ 20 MCG/KG/MIN. CARSON CATHETER IN PLACE AND DRAINING BY GRAVITY. WILL CONTINUE TO MONITOR.
[2018-04-02] VITALS (36 sets, daily range): BP systolic 109–168; BP diastolic 22–86
[2018-04-02] MEDS: BLOOD SUGAR DIAGNOSTIC 1 EACH STRIP IN SCH ×4 (00:07→17:57)
[2018-04-02] MEDS: INSULIN REGULAR, HUMAN 100 UNIT/ML 3 ML VIAL SQ PRN (00:07)
[2018-04-02] MEDS: HYDROMORPHONE INJ 0.5 MG/0.5 ML SYRINGE IV PRN ×2 (00:27→04:35)
[2018-04-02] MEDS: PIPERACILLIN /TAZOBACTAM 3.375 G in IV D5W 100 ML IV SCH ×3 (01:13→17:49)
[2018-04-02] MEDS: PROPOFOL 100 ML IV PRN (04:30)
[2018-04-02 06:15] LABS: BASOPHILS % (AUTO) 0.2 % (0.0-2.0); EOSINOPHILS % (AUTO) 0.1 % (0.0-6.0); HEMATOCRIT 28 % (39-51); HEMOGLOBIN 9.2 g/dL (13.5-17.5); LYMPHOCYTES # (AUTO) 0.9 /CMM (0.8-4.8); LYMPHOCYTES % (AUTO) 8.2 % (20.0-44.0); MEAN CORPUSCULAR HGB CONC 33 g/dl (31.0-36.0); MEAN CORPUSCULAR VOLUME 92 fL (80-96); MONOCYTES # (AUTO) 0.4 /CMM (0.1-1.30); MONOCYTES % (AUTO) 3.9 % (2.0-12.0); NEUTROPHILS # (AUTO) 9.1 /CMM (1.8-8.9); NEUTROPHILS % (AUTO) 87.6 % (43.0-81.0); PLATELET COUNT (AUTO) 127 /CMM (150-450); RED BLOOD CELL COUNT(AUTO) 2.98 MIL/uL (4.5-6.0); WHITE BLOOD COUNT (AUTO) 10.3 K/uL (4.3-11.0)
[2018-04-02 07:01] LABS: CALCIUM, SERUM 8.2 mg/dL (8.5-10.1); CARBON DIOXIDE 25 mmol/L (21-32); CHLORIDE 113 mmol/L (98-107); GLUCOSE 171 mg/dL (74-106); PHOSPHORUS 2.6 mg/dL (2.5-4.9); SODIUM SERUM 146 mmol/L (136-145); UREA NITROGEN, BLOOD 30 mg/dL (7-18)
--- NOTE | 2018-04-02 07:21 | NUR ---
CARRIAGE SETTER NOTE PT REMAINED STABLE DURING SHIFT. NO ACUTE DISTRESS NOTED. VENT SETTINGS WELL TOLERATED. SUCTIONED NEEDED. ALL NEEDS ATTENDED TO PROMPTLY. KEPT CLEAN AND DRY. REPOSITIONED Q2H. WILL ENDORSE TO NEXT SHIFT FOR CONTINUITY OF CARE.
[2018-04-02] MEDS: IPRATROPIUM NEB FS 0.5 MG/2.5 ML AMPUL.NEB NEB SCH ×5 (07:33→23:09)
[2018-04-02] MEDS: ALBUTEROL HALF STRENGTH 1.25 MG/3 ML VIAL.NEB NEB SCH ×5 (07:33→23:09)
[2018-04-02] MEDS: methylPREDNISolone SOD SUCC 125 MG/2ML VIAL IV SCH ×2 (08:51→17:49)
[2018-04-02] MEDS: PANTOPRAZOLE 40 MG VIAL IV SCH ×2 (08:51→21:22)
[2018-04-02] MEDS: SUCRALFATE 1 G/10 ML UDC GT SCH ×3 (08:51→16:04)
[2018-04-02 09:51] LABS: ABG BASE EXCESS -3.2 mmol/L; ABG OXYGEN SATURATION 97.6 % (92.0-98.5); ABG PH 7.382 (7.350-7.450); ABG PO2 111.6 mmHg (75.0-100.0); AaDO2 94.9 mmHg; COHb 0.3 % (0.5-1.5); MetHb 0.4 % (0.0-1.5); O2Hb 96.9 % (94.0-97.0); PEEP,BG 5 cm H2O; SITE, ABG Right Radial; VENT MODE, BG SIMV 4/ PS 12; VT, ABG 500 mL
[2018-04-02] MEDS ORDERED: DC PROPOFOL WHEN EXTUBATED XX PRN (11:00)
[2018-04-02] MEDS: hydrALAZINE HCL IV 20 MG VIAL IV PRN (12:19)
--- NOTE | 2018-04-02 13:36 | NUR ---
Pt extubated per MD order and placed on O2 via nasal cannula. Addendum: 04/02/18 at 1655 by MING PRESLEY Amended: Links added.
[2018-04-02] MEDS: ACETYLCYSTEINE 10% SOLN 400 MG/4 ML VIAL NEB SCH ×2 (15:45→23:09)
--- NOTE | 2018-04-02 18:51 | NUR ---
pt in a.m. on vent/saedation vacation started at 8am/dcd propofol/pt awaoke but not following commands, placed on simv and tolerated righjt away/pt restraints left5 in place as pt does remove equiptment when given the chance/md sullivantited pt and states will be extubated later today as he found pt to have leak in et//pt was extubasted at 136 and ngt removed/pt has since been suctioned over and over as pt does not swallow or clear/cough secretions/pt still very tenous and pt still has a lot of secretions and needs frequent suctioning/pt bs stable today/
--- NOTE | 2018-04-02 19:50 | NUR ---
RN NOTES DR. SANTIAGO CALLED AND UPDATE THE PATIENT STATUS. INFORMED THAT THE PATIENT NEEDS MORE/FREQUENT SUCTION DUE TO SECRETION IS UNABLE TO SPIT OUT. MD WITH ORDER TO SUCTION PT PRN ACK ACKNOWLEDGE THE ORDER.
--- NOTE | 2018-04-02 20:00 | NUR ---
RN NOTES RECEIVED PT. AWAKE WATCHING TV ON BED. CRACKLES ON BILATERAL LUNGS. O2 5LPM VIA NC TOLERATED WELL. SATURATION 94 WENT DOWN TO <90. DEEP SUCTIONED DONE BY RT AND RN. WITH WHITE THICK BARRETT/YELLOWISH SECRETION. PRESENT. NSR WITH PAC'S ON BASSAM MONITOR. OFF FROM PRESSOR AND SEDATION. IV SITE ON BALAJI TLC WITH TPN @ 80 ML.HR TOLERATED WELL INTACT AND PATENT. LEFT HAND G 20 FLUSHED WELL. F/C OFF FROM FLOOR DRAINED BY GRAVITY. KEPT PT CLEAN AND DRY AND COMFORTABLE IN BED. REPOSITIONED FOR SKIN CARE. WILL CONT. TO MONITOR.
[2018-04-02] MEDS ORDERED: TPN BAG #8 IV PRN ×8 (23:00)
[2018-04-03] VITALS (32 sets, daily range): BP systolic 111–168; BP diastolic 48–106
[2018-04-03] MEDS: INSULIN REGULAR, HUMAN 100 UNIT/ML 3 ML VIAL SQ PRN ×2 (00:12→12:02)
[2018-04-03] MEDS: PIPERACILLIN /TAZOBACTAM 3.375 G in IV D5W 100 ML IV SCH ×3 (01:50→18:26)
[2018-04-03] MEDS: IPRATROPIUM NEB FS 0.5 MG/2.5 ML AMPUL.NEB NEB SCH ×6 (03:18→23:10)
[2018-04-03] MEDS: ALBUTEROL HALF STRENGTH 1.25 MG/3 ML VIAL.NEB NEB SCH ×6 (03:18→23:10)
[2018-04-03 04:53] LABS: BASOPHILS % (AUTO) 0.1 % (0.0-2.0); EOSINOPHILS % (AUTO) 0.2 % (0.0-6.0); HEMATOCRIT 28 % (39-51); HEMOGLOBIN 9.2 g/dL (13.5-17.5); LYMPHOCYTES % (AUTO) 7.7 % (20.0-44.0); MEAN CORPUSCULAR HGB CONC 33 g/dl (31.0-36.0); MEAN CORPUSCULAR VOLUME 92 fL (80-96); MONOCYTES # (AUTO) 1.2 /CMM (0.1-1.30); MONOCYTES % (AUTO) 9.1 % (2.0-12.0); NEUTROPHILS # (AUTO) 11.2 /CMM (1.8-8.9); NEUTROPHILS % (AUTO) 82.9 % (43.0-81.0); PLATELET COUNT (AUTO) 173 /CMM (150-450); RED BLOOD CELL COUNT(AUTO) 3.02 MIL/uL (4.5-6.0); WHITE BLOOD COUNT (AUTO) 13.5 K/uL (4.3-11.0)
[2018-04-03 05:01] LABS: CALCIUM, SERUM 8.4 mg/dL (8.5-10.1); GLUCOSE 100 mg/dL (74-106); PHOSPHORUS 2.2 mg/dL (2.5-4.9); UREA NITROGEN, BLOOD 39 mg/dL (7-18)
[2018-04-03 05:06] LABS: CARBON DIOXIDE 24 mmol/L (21-32); CHLORIDE 114 mmol/L (98-107); POTASSIUM 3.7 mmol/L (3.5-5.1); SODIUM SERUM 147 mmol/L (136-145)
[2018-04-03] MEDS: BLOOD SUGAR DIAGNOSTIC 1 EACH STRIP IN SCH ×4 (06:50→17:59)
--- NOTE | 2018-04-03 07:00 | NUR ---
RN NOTES PT DID NOT SLEEP THE WHOLE SHIFT. TOLERATED O2 4-6 LPM A NC. SUCTIONED FREQUENTLY X7 WITH LARGE THICK YELLOWISH /BARRETT SECRETION. BREATHING TX GIVEN BY RT. PKEPT HOB ELEVATED. VSS. DR. SANTIAGO CALLED AT 6AM AND UPDATED ABOUT THE PATIENT STATUS WITH ORDER TO GIVE SCOPOLAMINE PATCH FOR HYPERSECRETION NOTED AND ACKNOWLEDGE ORDER. KEPT PT CLEAN AND DRY. PT REMAINED NPO IV SITE INTACT TPN CONTINUE ORDERD. CLOSELY MONITOR PATIENT.
[2018-04-03] MEDS: ACETYLCYSTEINE 10% SOLN 400 MG/4 ML VIAL NEB SCH ×3 (07:13→23:10)
--- NOTE | 2018-04-03 07:40 | NUR ---
DENTAL SURGERY DOCTOR: pt.is awake, Ox1, rest, no grimacing, unable to follow commands well, just simple commands, on wrists restrains, able to answer by yes/no by simple Q, no pain, O2 sat. over 97%, SR, SB 40-50 by report, SBP is around 150 now, gargling upper airway sounds, was suctioned deeply 5-6 times over night by report, updated RT/going for resp.Tx/to suction pt., notified pt re meds, orders, POC, [employer] mattress was removed by report, will turn pt.q2h, unable to give PO meds/MD is aware by night nurse report/waiting swallow eval.
[2018-04-03] MEDS ORDERED: TPN BAG #10 IV PRN ×7 (08:00)
[2018-04-03 08:02] LABS: ABG BASE EXCESS -1.6 mmol/L; ABG OXYGEN SATURATION 96.1 % (92.0-98.5); ABG PCO2 34.2 mmHg (35.0-45.0); ABG PH 7.431 (7.350-7.450); ABG PO2 88.3 mmHg (75.0-100.0); AaDO2 157.6 mmHg; COHb 0.3 % (0.5-1.5); MetHb 0.5 % (0.0-1.5); O2Hb 95.3 % (94.0-97.0); SITE, ABG Right Radial; VENT MODE, BG 5L NC
[2018-04-03] MEDS: PANTOPRAZOLE 40 MG VIAL IV SCH ×2 (08:18→20:12)
[2018-04-03] MEDS: methylPREDNISolone SOD SUCC 125 MG/2ML VIAL IV SCH ×2 (08:18→17:14)
[2018-04-03] MEDS: SCOPOLAMINE HBR 1 EA PATCH.TD72 TD SCH (08:18)
--- NOTE | 2018-04-03 08:30 | NUR ---
STAFF FORESTER: ABG done: pH 7.43, CO2 34, O2 88 on 4Ln/c, pt.is nasopharyngeal suctioned well with large bloody secretion, O2sat. 94-97%, is updated by charge nurse, pt.daughter called/updated with pt.current status, VS, multiple suctions, orders, POC
[2018-04-03] MEDS: SUCRALFATE 1 G/10 ML UDC GT SCH ×3 (09:00→17:00)
--- NOTE | 2018-04-03 09:30 | NUR ---
ACADEMIC TUTOR: updated with pt.current condition, VS, suctions amount, ABG, I/O, TPN, see new orders
[2018-04-03] MEDS: hydrALAZINE HCL IV 20 MG VIAL IV PRN (11:03)
--- NOTE | 2018-04-03 11:08 | NUR ---
ATHLETIC COORDINATOR: SBP 168-165, Hydralazine 10 mg IV is given, pt.got resp.Tx, suctioned deeply by Rt again, pt. is in room/updated
[2018-04-03] MEDS ORDERED: TPN BAG #9 IV PRN ×5 (13:00)
--- NOTE | 2018-04-03 13:20 | NUR ---
BAND INSTRUMENT REPAIRER: Shahid PERFORMANCE REPORTER is in room, updated with pt.neurostatus, VS, suctions amount, O2sat/, ABG, I/O, TPN/NPO status, unable to give PO meds, BS, said: hold PT eval. now, see new orders
--- NOTE | 2018-04-03 19:48 | NUR ---
PAYROLL OFFICER. INITIAL ASSESSMENT. RECEIVED THE PT REST ON THE BED. AWAKE, ALERT, FOLLOW COMMANDS. ELECTROMECHANICAL TECHNICIAN SHOWING NSR. OXYGEN 4L VIA NASAL CANNULA. SAT 97%. NO ACUTE DISTRESS NOTED. IV RT UPPER ARM PIC LINE TPN 80ML/H, RABIA SOFT WRIST RESTRAINT CHECKED AND RELEASED. NO INJURY OR REDNESS NOTED. HOB ELEVATED. CHEST IS CONGESTED. PT IS NPO. AFEBRILE. FC PATENT. URINE DRAINING. WILL CONTINUE TO MONITOR VITALS.
[2018-04-04] VITALS (32 sets, daily range): BP systolic 77–187; BP diastolic 50–117
[2018-04-04] MEDS: BLOOD SUGAR DIAGNOSTIC 1 EACH STRIP IN SCH ×4 (00:33→17:38)
[2018-04-04] MEDS: PIPERACILLIN /TAZOBACTAM 3.375 G in IV D5W 100 ML IV SCH ×3 (01:26→17:11)
[2018-04-04] MEDS: ALBUTEROL HALF STRENGTH 1.25 MG/3 ML VIAL.NEB NEB SCH ×6 (03:27→23:08)
[2018-04-04] MEDS: IPRATROPIUM NEB FS 0.5 MG/2.5 ML AMPUL.NEB NEB SCH ×6 (03:27→23:08)
--- NOTE | 2018-04-04 03:38 | NUR ---
INSPECTOR MACHINED PARTS. AM CARE, ORAL CARE, BED BATH GIVEN. LINEN CHANGED. REMAINING SAME OXYGEN TOLERATED WELL. SAT 98%. NO ACUTE DISTRESS NOTED. ELECTRONIC SPECIALIST SHOWING S ROJAS. PT SLEPT ON AND OFF. INTERMITTENT DEEP SUCTION DONE.FC PATENT. URINE DRAINING. HOB ELEVATED. NPO. RABIA SOFT WRIST RESTRAINT CHECKED AND RELEASED. NO INJURY OR REDNESS NOTED. IV RT UPPER ARM PICC LINE. TPN 80ML/H. . TURN AND REPOSITION Q2H. WILL CONTINUE TO MONITOR VITALS.
[2018-04-04 04:43] LABS: CALCIUM, SERUM 8.3 mg/dL (8.5-10.1); CARBON DIOXIDE 25 mmol/L (21-32); CHLORIDE 110 mmol/L (98-107); CREATININE 1.1 mg/dL (0.6-1.3); GLUCOSE 113 mg/dL (74-106); PHOSPHORUS 2.7 mg/dL (2.5-4.9); POTASSIUM 3.7 mmol/L (3.5-5.1); SODIUM SERUM 142 mmol/L (136-145); UREA NITROGEN, BLOOD 43 mg/dL (7-18)
[2018-04-04 07:30] LABS: BASOPHILS % (AUTO) 0.2 % (0.0-2.0); EOSINOPHILS % (AUTO) 0.1 % (0.0-6.0); HEMATOCRIT 27 % (39-51); HEMOGLOBIN 9.1 g/dL (13.5-17.5); LYMPHOCYTES # (AUTO) 1.4 /CMM (0.8-4.8); LYMPHOCYTES % (AUTO) 14.3 % (20.0-44.0); MEAN CORPUSCULAR HGB CONC 33 g/dl (31.0-36.0); MEAN CORPUSCULAR VOLUME 93 fL (80-96); MONOCYTES # (AUTO) 0.8 /CMM (0.1-1.30); MONOCYTES % (AUTO) 8.2 % (2.0-12.0); NEUTROPHILS # (AUTO) 7.4 /CMM (1.8-8.9); NEUTROPHILS % (AUTO) 77.2 % (43.0-81.0); PLATELET COUNT (AUTO) 181 /CMM (150-450); RED BLOOD CELL COUNT(AUTO) 2.95 MIL/uL (4.5-6.0); WHITE BLOOD COUNT (AUTO) 9.6 K/uL (4.3-11.0)
--- NOTE | 2018-04-04 07:43 | NUR ---
ENDOSCOPIC TECHNICIAN: pt.is rest, no grimacing, no pain, awake, Ox1, able to follow by simple commands, but uncooperative sometimes, can remove sensor, tubes, on wrists restraints, SR/SB 55-63, SBP 168/will give BP meds, O2sat. over 96% on 4L n/c, was suctioned deeply 4 times over night by report, gargling sounds, will s/w RT, on TPN
[2018-04-04] MEDS: ACETYLCYSTEINE 10% SOLN 400 MG/4 ML VIAL NEB SCH ×3 (07:47→23:08)
[2018-04-04] MEDS: hydrALAZINE HCL IV 20 MG VIAL IV PRN (07:58)
[2018-04-04] MEDS ORDERED: TPN BAG #12 IV PRN ×8 (08:00)
[2018-04-04] MEDS ORDERED: TPN BAG #11 IV PRN ×6 (08:00)
[2018-04-04] MEDS: SUCRALFATE 1 G/10 ML UDC GT SCH ×3 (09:00→17:00)
[2018-04-04] MEDS: PANTOPRAZOLE 40 MG VIAL IV SCH ×2 (09:06→20:47)
[2018-04-04] MEDS: methylPREDNISolone SOD SUCC 125 MG/2ML VIAL IV SCH ×3 (09:07→17:09)
--- NOTE | 2018-04-04 09:15 | NUR ---
HYDRO ELECTRIC STATION OPERATOR: pt.is suctioned deeply well with large secretion amount, less bloody, Hb 9.1, unable to give PO meds/Carafate, NPO status, no NGT, pt.can't swallow now d/t mental status, got report before: pt.is waiting swallow evaluation, but no actual order in EMR now, will speak with GI MD, PMD
--- NOTE | 2018-04-04 10:15 | NUR ---
FEDERAL LAW CLERK: Shahid, TEST TECHNICIAN is in room, updated with pt.current condition, mental status, deeply suctions amount, VS, SBP up to 160-170 episode, I/O, TPN, O2sat., labs, meds, working for possible transfer to high care level by follow surgeon Ankush, also unable to give PO meds Carafate, NPO status, no NGT, ?swallow evaluation/GI MD will be notify
--- NOTE | 2018-04-04 10:20 | NUR ---
PAPERHANGER APPRENTICE: reevaluated all orders, no active order for swallow evaluation in EMR now, will speak/message with FERNANDO Key/Briseida GI ELECTROPHYSIOLOGY TECHNOLOGIST, pt.daughter spoke with regarding Dx, prognosis before, aware re perforation risk.
--- NOTE | 2018-04-04 10:45 | NUR ---
FELT STRIP FINISHER: updated with pt.VS, O2sat., suctions amount, I/O, TPN, meds, labs, mental status, see new orders
--- NOTE | 2018-04-04 11:30 | NUR ---
OPERATIONS INTELLIGENCE SUPERINTENDENT: sent message for DAVID Goins SAWMILLING OPERATOR re unable to give PO meds, see note above, pt.daughter is in room, updated with pt.condition, VS, orders, POC, suctions amount, H/H, TPN, got FERNANDO Key contact info.
--- NOTE | 2018-04-04 14:49 | NUR ---
DERRICK BARGE OPERATOR: pr. is in room/updated
--- NOTE | 2018-04-04 16:24 | NUR ---
CHANNEL CEMENTER INSOLE MACHINE: RT suctioned pt. nasotracheally again with large secretion amount, O2sat. over 96%, lungs sounds are better, no gargling now, pt. is at bedside. Poison control/Tip called/updated with VS, neuro status, TPN, suctions amount, POC
[2018-04-04] MEDS: INSULIN REGULAR, HUMAN 100 UNIT/ML 3 ML VIAL SQ PRN (17:33)
--- NOTE | 2018-04-04 18:02 | NUR ---
FARM TRACTOR OPERATOR: BriseidaGI BREAKDOWN MAN is in room, updated with pt.current condition, neuro/mental status(pt.is unable to follow commands well), VS, I/O, TPN, nasotracheal suctions amount, NPO, no active swallow eval.order is in EMR, confirmed: unable any manipulation (NGT, swallowing) through esophagus now, going to speak with pt.family, Shahid for possible PEG GT placement as POC option
--- NOTE | 2018-04-04 18:34 | NUR ---
PROCEDURES RN: suctioned pt.through oropharyngeal deeply, O2sat. 97-100%, SR, SBP WNL, no SOB
--- NOTE | 2018-04-04 19:09 | NUR ---
PROFILE MILL OPERATOR TAPE CONTROL. INITIAL ASSESSMENT. RECEIVED THE PT REST ON THE BED. AWAKE, ALERT. DOES NOT FOLLOW COMMANDS. BROADCAST TECHNICIAN SHOWING S ROJAS. OXYGEN 4L VIA NASAL CANNULA, SAT 98%. NO ACUTE DISTRESS NOTED. IV RT UPPER ARM PICC LINE. TPN 80ML/H, FC PATENT. RABIA SOFT WRIST RESTRAINT CHECKED AND RELEASED. NO INJURY OR REDNESS NOTED. PT IS NPO. WILL CONTINUE TO MONITOR VITALS. Addendum: 04/04/18 at 2115 by DIANA CARLIN RN PROFILE MILL OPERATOR TAPE CONTROL, RECEIVED THE PT REST ON THE BED. AWAKE, ALERT, DOES NOT FOLLOW COMMANDS. BROADCAST TECHNICIAN SHOWING NSR. OXYGEN 4L VIA NASAL CANNULA. SAT 97%, PT IS TACHYPNEIC. RABIA SOFT WRIST RESTRAINT CHECKED AND RELEASED. NO INJURY OR REDNESS NOTED. FC PATENT. URINE DRAINING, IV RT UPPER ARM PICC LINE TPN 80ML/H. HOB ELEVATED. WILL CONTINUE TO MONITOR VITALS
--- NOTE | 2018-04-04 20:26 | NUR ---
RECEIVED PT ON NC 4L. PT IS AWAKE. BS COARSE BILAT, SX FOR LARGE AMT OF THICK YELLOW, TINGED SECRETIONS. WILL CONTINUE TO MONITOR.
[2018-04-04] MEDS: HYDROMORPHONE INJ 0.5 MG/0.5 ML SYRINGE IV PRN (20:47)
--- NOTE | 2018-04-04 21:40 | NUR ---
VARNISH MAKER. PT LOOKS PAIN FACIAL GRIMACING , TACHYPNEIC , DILAUDID GIVEN PER MD ORDERED,
[2018-04-04] MEDS ORDERED: LORAZEPAM INJ 2 MG/ML VIAL IV ONE ×2 (22:30→23:00)
--- NOTE | 2018-04-04 23:17 | NUR ---
WATER SPONGER. PT MORE ANXIOUS SHAKING UPPER AND LOWER EXTREMITY ATIVAN GIVEN PER MD ORDERED. FAMILY AT BED SIDE. DAUGHTER SAID PT BACK TO BACK SMOKER AT HOME,, PRODUCTION LINE OPERATOR OSCAR MADE AWARE,.
[2018-04-05] VITALS (26 sets, daily range): BP systolic 95–158; BP diastolic 49–85
[2018-04-05] MEDS: BLOOD SUGAR DIAGNOSTIC 1 EACH STRIP IN SCH ×4 (00:13→17:42)
[2018-04-05] MEDS: PIPERACILLIN /TAZOBACTAM 3.375 G in IV D5W 100 ML IV SCH ×3 (01:17→17:38)
--- NOTE | 2018-04-05 01:49 | NUR ---
MENS LOCKER ROOM ATTENDANT [facility] PACKAGING LINE OPERATOR CALLED FOR PT TRANSFER. SHE SAID NO BED AVAILABLE.
--- NOTE | 2018-04-05 02:35 | NUR ---
WELLNESS PROGRAM ADMINISTRATOR. LT NARE FRESH BLOOD SMALL QUANTITY NOTED.HUMIDIFIED OXYGEN PLACED. WILL CONTINUE TO MONITOR,
[2018-04-05] MEDS: ALBUTEROL HALF STRENGTH 1.25 MG/3 ML VIAL.NEB NEB SCH ×5 (03:31→20:22)
[2018-04-05] MEDS: IPRATROPIUM NEB FS 0.5 MG/2.5 ML AMPUL.NEB NEB SCH ×5 (03:31→20:22)
--- NOTE | 2018-04-05 04:14 | NUR ---
olericulture professor. am care. oral care, bed bath given. linen changed, remaining same oxygen tolerated well. sat 00%. vice president industrial relations showing S ROJAS. IV TPN 80ML/H. RABIA SOFT WRIST RESTRAINT CHECKED. AND RELEASED,HOB ELEVATED, TURN AND REPOSITION Q2H. NO INJURY OR REDNESS NOTED. WILL CONTINUE TO MONITOR VITALS.
[2018-04-05 04:37] LABS: CALCIUM, SERUM 8.2 mg/dL (8.5-10.1); CARBON DIOXIDE 25 mmol/L (21-32); CHLORIDE 108 mmol/L (98-107); CREATININE 1.1 mg/dL (0.6-1.3); GLUCOSE 125 mg/dL (74-106); PHOSPHORUS 3.2 mg/dL (2.5-4.9); POTASSIUM 3.9 mmol/L (3.5-5.1); SODIUM SERUM 140 mmol/L (136-145); UREA NITROGEN, BLOOD 40 mg/dL (7-18)
[2018-04-05 04:39] LABS: TRIGLYCERIDES 74 mg/dL (30-150)
[2018-04-05 05:01] LABS: BASOPHILS % (AUTO) 0.1 % (0.0-2.0); EOSINOPHILS % (AUTO) 0.1 % (0.0-6.0); HEMATOCRIT 29 % (39-51); HEMOGLOBIN 9.4 g/dL (13.5-17.5); LYMPHOCYTES # (AUTO) 1.1 /CMM (0.8-4.8); LYMPHOCYTES % (AUTO) 8.6 % (20.0-44.0); MEAN CORPUSCULAR HGB CONC 33 g/dl (31.0-36.0); MEAN CORPUSCULAR VOLUME 92 fL (80-96); MONOCYTES # (AUTO) 0.9 /CMM (0.1-1.30); MONOCYTES % (AUTO) 6.4 % (2.0-12.0); NEUTROPHILS # (AUTO) 11.3 /CMM (1.8-8.9); NEUTROPHILS % (AUTO) 84.8 % (43.0-81.0); PLATELET COUNT (AUTO) 202 /CMM (150-450); RED BLOOD CELL COUNT(AUTO) 3.11 MIL/uL (4.5-6.0); WHITE BLOOD COUNT (AUTO) 13.3 K/uL (4.3-11.0)
--- NOTE | 2018-04-05 07:10 | NUR ---
RN INITIAL NOTES: Rec'd pt on bed, asleep, not in any distress. On NC at 4lpm sating at 100%, noted crackles on upper airway. On telemonitor, SB 55bpm. Has FC draining to BSB w/ adequate yellowish UOP. Has BALAJI PICC line, TLC w/ TPN x 80 cc/hr infusing well, w/ no s/sx of infection/infiltration noted. Safety precaution in place. Bed in lowest & locked pos. Will continue to monitor & attend pt needs.
[2018-04-05] MEDS: ACETYLCYSTEINE 10% SOLN 400 MG/4 ML VIAL NEB SCH ×2 (07:15→15:06)
[2018-04-05] MEDS: SUCRALFATE 1 G/10 ML UDC GT SCH ×3 (09:00→17:00)
[2018-04-05] MEDS: methylPREDNISolone SOD SUCC 125 MG/2ML VIAL IV SCH ×2 (09:15→17:38)
[2018-04-05] MEDS: PANTOPRAZOLE 40 MG VIAL IV SCH ×2 (09:15→21:47)
[2018-04-05] MEDS: NICOTINE PATCH (7MG) 7 MG PATCH.TD24 TD SCH (09:15)
[2018-04-05] MEDS ORDERED: TPN BAG #14 IV PRN ×8 (11:00)
[2018-04-05] MEDS ORDERED: TPN BAG #13 IV PRN ×6 (11:00)
--- NOTE | 2018-04-05 11:30 | NUR ---
Pt seen & examined by Dr. Arce.
--- NOTE | 2018-04-05 12:00 | NUR ---
Pt seen & examined by FERNANDO Key w/ orders made & carried out.
[2018-04-05] MEDS: INSULIN REGULAR, HUMAN 100 UNIT/ML 3 ML VIAL SQ PRN ×2 (12:34→17:43)
[2018-04-05] MEDS: FAT EMULSION 20% 500 ML in PREMIX 1 EA IV SCH (15:17)
--- NOTE | 2018-04-05 19:00 | NUR ---
RN CLOSING NOTES: No acute changes noted w/in shift. Pt remains awake, able to respond to simple question. Pt tolerated NC at 4lpm, sating at 100%. SR on telemonitor. BALAJI PICC line kept patent & intact w/ no s/sx of infection/infiltration noted, w/ TPN x 80cc/hr & Lipid x 20cc/hr & NS TKO. FC kept patent & intact. B soft wrist restraints kept in for safety. Bed in lowest & locked pos. Call light w/in reach. Endorsed to PM RN for JERRY. Family came & updated about pt condition & POC. Per FERNANDO Key, he rec'd call from [facility] & accepted pt for higher LOC.
--- NOTE | 2018-04-05 19:40 | NUR ---
RN NOTES RECEIVED PT AWAKE ON BED. NO ACUTE RESPIRATORY DISTRESS. WARMTH TO TOUCH. AFEBRILE 98.2. ALERT AND RESPONSIVE TO NAME AND PAIN BUT UNABLE TO VERBALIZED UNDERSTANDING OF CARE SECONDARY TO DEMENTIA. BILATERAL BREATH SOUND CONGESTION, WHEEZING AND CRACKLES HEARD. DEEP SUCTIONED RENDERED WITH THICK WHITISH SECRETION. SR WITH PAC'S ON TELE MONITOR. IV SITE ON BALAJI PICC LINE RUNNING WITH TPN AT 80,L/HR AND LIPID @ 20 ML/HR INTACT AND PATENT. PATIENT HAS CARSON CATH DRAINED VIA GRAVITY WITH CLEAR COLOR ALLEN URINE. KEPT OFF FROM THE FLOOR. TURNED AND REPOSITIONED FOR SKIN MANAGEMENT. KEPT PT CLEAN AND DRY WILL CONTINUE TO MONITOR.
--- NOTE | 2018-04-05 20:47 | NUR ---
PT ON 4L NC AWAKE, O2 SAT 99%. RECEIVING Q4 BREATHING TX. BS COARSE BILAT, SX'D FOR LARGE AMT OF THICK FROTHY YELLOW/TINGED SECRETIONS. WILL CONTINUE TO MONITOR.
[2018-04-05] MEDS: LORAZEPAM INJ 2 MG/ML VIAL IV PRN (23:28)
[2018-04-06] VITALS (19 sets, daily range): BP systolic 120–170; BP diastolic 54–99
--- NOTE | 2018-04-06 00:18 | NUR ---
NASAL TRUMPET INSERTED ON THE LEFT SIDE.
[2018-04-06] MEDS: ACETYLCYSTEINE 10% SOLN 400 MG/4 ML VIAL NEB SCH ×4 (00:22→23:20)
[2018-04-06] MEDS: IPRATROPIUM NEB FS 0.5 MG/2.5 ML AMPUL.NEB NEB SCH ×7 (00:22→23:20)
[2018-04-06] MEDS: ALBUTEROL HALF STRENGTH 1.25 MG/3 ML VIAL.NEB NEB SCH ×7 (00:22→23:20)
[2018-04-06] MEDS: BLOOD SUGAR DIAGNOSTIC 1 EACH STRIP IN SCH ×4 (00:29→17:28)
[2018-04-06] MEDS: PIPERACILLIN /TAZOBACTAM 3.375 G in IV D5W 100 ML IV SCH ×2 (01:48→09:26)
[2018-04-06] MEDS: hydrALAZINE HCL IV 20 MG VIAL IV PRN (02:47)
[2018-04-06 04:43] LABS: BASOPHILS % (AUTO) 0.3 % (0.0-2.0); EOSINOPHILS % (AUTO) 0.1 % (0.0-6.0); HEMATOCRIT 29 % (39-51); HEMOGLOBIN 9.6 g/dL (13.5-17.5); LYMPHOCYTES # (AUTO) 1.3 /CMM (0.8-4.8); LYMPHOCYTES % (AUTO) 8.7 % (20.0-44.0); MEAN CORPUSCULAR HGB CONC 34 g/dl (31.0-36.0); MEAN CORPUSCULAR VOLUME 92 fL (80-96); MONOCYTES # (AUTO) 0.6 /CMM (0.1-1.30); MONOCYTES % (AUTO) 4.3 % (2.0-12.0); NEUTROPHILS % (AUTO) 86.6 % (43.0-81.0); PLATELET COUNT (AUTO) 223 /CMM (150-450); RED BLOOD CELL COUNT(AUTO) 3.11 MIL/uL (4.5-6.0)
[2018-04-06 04:55] LABS: CALCIUM, SERUM 8.1 mg/dL (8.5-10.1); CARBON DIOXIDE 26 mmol/L (21-32); CHLORIDE 109 mmol/L (98-107); CREATININE 1.1 mg/dL (0.6-1.3); GLUCOSE 120 mg/dL (74-106); MAGNESIUM 2.1 mg/dL (1.8-2.4); PHOSPHORUS 2.7 mg/dL (2.5-4.9); POTASSIUM 3.6 mmol/L (3.5-5.1); SODIUM SERUM 142 mmol/L (136-145); UREA NITROGEN, BLOOD 36 mg/dL (7-18)
--- NOTE | 2018-04-06 07:22 | NUR ---
RN NOTES NO SIGNIFICANT CHANGE OF CONDITION THROUGHOUT THE SHIFT. PATIENT STILL NEEDS FREQUENT SUCTION. VSS AFEBRILE. NO CHANGE ON MENTAL STATUS. BALAJI PICC LINE WITH TPN AND LIPID TOLERATED WELL. WITH ADEQUATE AMOUNT OF URINE OUTPUT. PT KEPT CLEAN AND DRY. CLOSELY MONITOR. ENDORSED CONTINUITY OF CARE TO AM SHIFT.
--- NOTE | 2018-04-06 07:30 | NUR ---
RN NOTES RECEIVED PATIENT IN BED, OPENS EYES TO NAME, NOT ON ANY FORM OF DISTRESS, NASAL TRUMPET IN PLACE, OXYGEN SUPPORT VIA NASAL CANNULA: OXYGEN AT 4LPM, SATING AT 98%, SINUS ROJAS HR AT 58 ON THE MONITOR, CRACKLES HEARD ON AUSCULTATION, SUCTIONING DONE: SECRETION THICK AND WHITISH. SKIN WARM TO TOUCH, IV LINE: PICC ON THE BALAJI IN PLACE AND INTACT, WITH ONGOING TPN AT 80ML/HE AND LIPID AT 20ML/HR. BILATERAL SOFT RESTRAINTS TO BOTH WRIST: SKIN INTACT AND NO BREAKDOWN NOTED AT THIS TIME. CARSON CATHETER IN PLACE, DRAINING VIA GRAVITY TO CLEAR YELLOW URINE. SAFETY MEASURES OBSERVED AND MAINTAINED. CALL LIGHT WITHIN REACH. WILL CONTINUE TO MONITOR PATIENT CLOSELY
[2018-04-06] MEDS: PANTOPRAZOLE 40 MG VIAL IV SCH ×2 (08:27→22:16)
[2018-04-06] MEDS: NICOTINE PATCH (7MG) 7 MG PATCH.TD24 TD SCH (08:27)
[2018-04-06] MEDS: methylPREDNISolone SOD SUCC 125 MG/2ML VIAL IV SCH (08:27)
[2018-04-06] MEDS: SCOPOLAMINE HBR 1 EA PATCH.TD72 TD SCH (08:27)
[2018-04-06] MEDS: SUCRALFATE 1 G/10 ML UDC GT SCH ×3 (08:28→17:00)
--- NOTE | 2018-04-06 08:45 | NUR ---
RN NOTES PATIENT PLACED ON ROOM AIR, TOLERATING WELL AND IS SATURATING AT 94% AT THIS TIME. WILL CONTINUE TO MONITOR CLOSELY
[2018-04-06] MEDS ORDERED: ACETAMINOPHEN 650 MG/SUPP.RECT RC PRN (13:00)
[2018-04-06] MEDS ORDERED: TPN BAG #16 IV PRN ×8 (14:30)
[2018-04-06] MEDS ORDERED: TPN BAG #15 IV PRN ×6 (14:30)
[2018-04-06] MEDS ORDERED: TPN BAG #17 IV PRN ×6 (15:00)
--- NOTE | 2018-04-06 15:35 | NUR ---
RN NOTES ENDORSED PATIENT TO SHIVANI CUEVAS, FOR CONTINUITY OF CARE.
--- NOTE | 2018-04-06 15:45 | NUR ---
RN NOTES TRANSFERRED PATIENT TO ROOM 103 VIA ACLS PROTOCOL. PATIENT GIVEN DEEP SUCTIONING BEFORE TRANSFERRING. ON STABLE CONDITION, NOT ON ANY FORM OF DISTRESS. SAFETY MEASURES IN PLACE.
--- NOTE | 2018-04-06 16:00 | NUR ---
INTISH RN RECEIVING NOTES RECEIVED PT FORM ICU TO ROOM 103 VIA GURNEY.ALERT/ORIENTED X1 WITH CONFUSION AND RESTLESS.ON TELE HR IS 68 WITH SR PAC.ON ROOM AIR,TOLERATING WELL.NO SOB AND ACUTE DISTRESS NOTED. PICC LINE IS ON RIGHT UPPER INNER ARM,SITE IS CLEAN,DRY AND INTACT.RIGHT NASAL SUCTION TUBE IS PRESENT AND NEEDS CONTINUOS NASAL SUCTIONING WITH MODERATE THICK SECRETIONS NOTED.FC IS IN PLACE WITH CLEAR ALLEN COLOR URINE.SKIN ASSESSMENT IS DONE AND NOTED WITH MILD SCROTAL SWELLING.VITAL SIGNS CHECKED AND RECORDED.B/L WRIST SOFT RESTRAINTS PRESENT,SKIN ASSESSMENT IS CONTINUOS AND IT IS INTACT.SAFETY IS MAINTAINED AT ALL TIMES.BED IS IN LOW POSITION AND LOCKED.CALL LIGHT IS WITHIN REACH.WILL CONTINUE TO MONITOR THE PT CLOSELY.
[2018-04-06] MEDS ORDERED: MEROPENEM 1 G in IV NS 0.9% 100 ML IV ONE (17:00)
--- NOTE | 2018-04-06 19:20 | NUR ---
NITISH RN CLOSING NOTES PT ALERT/ORIENTED X1 WITH CONFUSION AND RESTLESS. ON TELE HR IS 60S WITH SR PAC. ON ROOM AIR, TOLERATING WELL. NO SOB AND ACUTE DISTRESS NOTED. PICC LINE IS ON RIGHT UPPER INNER ARM, SITE IS CLEAN, DRY AND INTACT. RIGHT NASAL SUCTION TUBE IS PRESENT. FC IS IN PLACE. MILD SCROTAL SWELLING. BILATERAL WRIST SOFT RESTRAINTS PRESENT, SKIN ASSESSMENT IS CONTINUOS AND INTACT. ALL NEEDS MET. SAFETY WAS MAINTAINED AT ALL TIMES. BED IS IN LOWEST POSITION AND LOCKED. CALL LIGHT WITHIN REACH. WILL ENDORSE TO CUSTOMS AND BORDER PROTECTION INSPECTOR NURSE FOR CONTINUITY OF CARE. Addendum: 04/06/18 at 1944 by SHIVANI BARRETT RN CLARIFICATION WILL ENDORSE TO CUSTOMS AND BORDER PROTECTION INSPECTOR NURSE FOR CONTINUITY OF CARE AND FOLLOW UP ABOUT THE DISCHARGE CARE.
--- NOTE | 2018-04-06 20:15 | NUR ---
EDUCATION INTERN OPENING NOTES RECEIVED REPORT FROM NEYMAR RN. PATIENT A/A/O X1 TO NAME W/ CONFUSION. BREATHING EVEN & UNLABORED, TOLERATING ROOM AIR. NO RESPIRATORY DISTRESS NOTED. ON TELE W/ SINUS RHYTHM & OCCASIONAL PACS, HR 67. RIGHT UPPER ARM PICC LINE INTACT & PATENT W/ DRESSING CDI & TPN INFUSING WELL @ 80 ML/HR. CARSON CATH DRAINING DARK YELLOW URINE. DENIES ANY PAIN OR DISCOMFORT @ THIS TIME. SAFETY MEASURES IN PLACE W/ SIDE RAILS UP & BED ALARM ON. HOB ELEVATED FOR ASPIRATION PRECAUTIONS. WILL CONTINUE TO MONITOR.
[2018-04-07] VITALS (7 sets, daily range): BP systolic 130–173; BP diastolic 52–78
[2018-04-07] MEDS: INSULIN REGULAR, HUMAN 100 UNIT/ML 3 ML VIAL SQ PRN ×3 (00:07→18:17)
[2018-04-07] MEDS: hydrALAZINE HCL IV 20 MG VIAL IV PRN ×2 (01:27→20:14)
[2018-04-07] MEDS: ALBUTEROL HALF STRENGTH 1.25 MG/3 ML VIAL.NEB NEB SCH ×6 (04:19→23:27)
[2018-04-07] MEDS: IPRATROPIUM NEB FS 0.5 MG/2.5 ML AMPUL.NEB NEB SCH ×6 (04:19→23:27)
[2018-04-07] MEDS: MEROPENEM 1 G in IV NS 0.9% 100 ML IV SCH ×2 (05:41→16:43)
[2018-04-07] MEDS: BLOOD SUGAR DIAGNOSTIC 1 EACH STRIP IN SCH ×4 (05:41→18:09)
[2018-04-07 06:51] LABS: BASOPHILS % (AUTO) 0.1 % (0.0-2.0); EOSINOPHILS % (AUTO) 0.5 % (0.0-6.0); HEMATOCRIT 30 % (39-51); HEMOGLOBIN 10.1 g/dL (13.5-17.5); LYMPHOCYTES # (AUTO) 1.8 /CMM (0.8-4.8); LYMPHOCYTES % (AUTO) 12.9 % (20.0-44.0); MEAN CORPUSCULAR HGB CONC 34 g/dl (31.0-36.0); MEAN CORPUSCULAR VOLUME 92 fL (80-96); MONOCYTES # (AUTO) 0.7 /CMM (0.1-1.30); MONOCYTES % (AUTO) 5.4 % (2.0-12.0); NEUTROPHILS # (AUTO) 11.1 /CMM (1.8-8.9); NEUTROPHILS % (AUTO) 81.1 % (43.0-81.0); PLATELET COUNT (AUTO) 232 /CMM (150-450); RED BLOOD CELL COUNT(AUTO) 3.26 MIL/uL (4.5-6.0); WHITE BLOOD COUNT (AUTO) 13.7 K/uL (4.3-11.0)
[2018-04-07 06:56] LABS: CALCIUM, SERUM 8.3 mg/dL (8.5-10.1); CARBON DIOXIDE 23 mmol/L (21-32); CHLORIDE 111 mmol/L (98-107); CREATININE 1.1 mg/dL (0.6-1.3); GLUCOSE 106 mg/dL (74-106); MAGNESIUM 1.9 mg/dL (1.8-2.4); PHOSPHORUS 2.6 mg/dL (2.5-4.9); POTASSIUM 3.3 mmol/L (3.5-5.1); SODIUM SERUM 143 mmol/L (136-145); UREA NITROGEN, BLOOD 33 mg/dL (7-18)
[2018-04-07 07:01] LABS: TRIGLYCERIDES 86 mg/dL (30-150)
[2018-04-07 07:51] LABS: LYMPHOCYTES % (MANUAL) 12 % (16-48); MONOCYTES % (MANUAL) 6 % (0-11.0); NEUTROPHILS % (MANUAL) 82 (42-76)
--- NOTE | 2018-04-07 07:58 | NUR ---
NITISH RN OPENING NOTES RECEIVED REPORT FROM PM NURSE. PATIENT A/A/O X1 TO NAME WITH PERIODS OF CONFUSION. BREATHING EVEN & UNLABORED, TOLERATING ROOM AIR. NO RESPIRATORY DISTRESS NOTED. ON TELE W/ SINUS RHYTHM & PACS, HR 93. RIGHT UPPER ARM PICC LINE INTACT & PATENT W/ DRESSING CDI & TPN INFUSING WELL @ 80 ML/HR. CARSON CATH DRAINING DARK YELLOW URINE. DENIES ANY PAIN OR DISCOMFORT @ THIS TIME. SAFETY MEASURES IN PLACE W/ SIDE RAILS UP & BED ALARM ON. HOB ELEVATED FOR ASPIRATION PRECAUTIONS.ON BILATERAL SOFT RESTRAINTS.BED IS LOCKED AND IN LOCKED POSITION. WILL CONTINUE TO MONITOR
[2018-04-07] MEDS: ACETYLCYSTEINE 10% SOLN 400 MG/4 ML VIAL NEB SCH ×3 (08:04→23:27)
[2018-04-07] MEDS: PANTOPRAZOLE 40 MG VIAL IV SCH ×2 (08:45→20:13)
[2018-04-07] MEDS: NICOTINE PATCH (7MG) 7 MG PATCH.TD24 TD SCH (08:51)
[2018-04-07] MEDS: SUCRALFATE 1 G/10 ML UDC GT SCH ×3 (08:53→16:43)
[2018-04-07] MEDS ORDERED: methylPREDNISolone SOD SUCC 125 MG/2ML VIAL IV SCH (09:00)
[2018-04-07] MEDS: POTASSIUM CL. PREMIX PERIPHER. 50 ML IV SCH ×2 (11:15→12:15)
--- NOTE | 2018-04-07 11:27 | NUR ---
NITISH RN NOTE SEEN BY ,UPDATED PATIENT CONDITION.INFORMED THAT PATIENT HAS PAC OFTEN,MILD SCROTAL SWELLING,LAB AND X RAY RESULT AND ABOUT LOW GARDE FEVER.GOT NEW ORDERS FOR RECULTURE URINE ,SPUTUM AND BLOOD.OK WITH SCD FOR DVT PROPHYLAXIS.WILL CONTINUE TO MONITOR.
[2018-04-07 12:50] LABS: APPEARANCE,URINE CLEAR (CLEAR); BILIRUBIN,URINE NEGATIVE (NEGATIVE); BLOOD, URINE TRACE Ery/uL (NEGATIVE); KETONES,URINE TRACE (NEGATIVE); LEUKOCYTE ESTERASE ,URINE NEGATIVE (NEGATIVE); NITRITE, URINE NEGATIVE (NEGATIVE); PROTEIN,URINE 1+ mg/dl (NEGATIVE); UGLUCOSE NEGATIVE (NEGATIVE); UROBILINOGEN,URINE 0.2 EU/dL (0.2)
[2018-04-07 12:59] LABS: COLOR,URINE DARK YELLOW (YELLOW)
[2018-04-07 13:02] LABS: BACTERIA,URINE Few /HPF (None Seen); SQUAMOUS EPITHELIAL CELL,UR Few /HPF (None Seen)
[2018-04-07 13:03] LABS: MUCUS,URINE Rare /LPF (None Seen)
[2018-04-07] MEDS: FAT EMULSION 20% 500 ML in PREMIX 1 EA IV SCH (15:35)
--- NOTE | 2018-04-07 19:27 | NUR ---
NITISH RN CLOSING NOTES PATIENT A/A/O X1 TO NAME WITH PERIODS OF CONFUSION. BREATHING EVEN & UNLABORED, TOLERATING ROOM AIR. NO RESPIRATORY DISTRESS NOTED. ON TELE W/ SINUS RHYTHM & PACS, HR 82. RIGHT UPPER ARM PICC LINE INTACT & PATENT W/ DRESSING CDI & TPN INFUSING WELL @ 80 ML/HR. CARSON CATH DRAINING DARK YELLOW URINE. DENIES ANY PAIN OR DISCOMFORT @ THIS TIME. SAFETY MEASURES IN PLACE W/ SIDE RAILS UP & BED ALARM ON. HOB ELEVATED FOR ASPIRATION PRECAUTIONS.ON BILATERAL SOFT RESTRAINTS.BED IS LOCKED AND IN LOCKED POSITION. ENDORSED TO PM NURSE FOR JERRY.
[2018-04-07] MEDS ORDERED: TPN IV PRN ×5 (20:00)
--- NOTE | 2018-04-07 20:00 | NUR ---
NITISH/RN NOTES: RECEIVED PT. IN BED ALERT TO SELF VERBALLY RESPONSIVE IN KYRGYZ LANGUAGE. RESPIRATIONS EVEN AND UNLABORED. NO FACIAL GRIMACES OR MOANING NOTED. ON TELE MONITOR W/ SR W/ PAC'S. W/ RABIA. SOFT WRIST RESTRAINTS. HOB ELEVATED FOR ASPIRATIONS. SUCTIONS PRN. HAS A PICC LINE ON BALAJI W/ TPN AT 80 ML/HR AND LIPIDS W/ 20 ML/HR. F/C PATENT AND INTACT DRAINING DARK YELLOW URINE. BED ALARMS ON. CALL LIGHT W/REACH. WILL CONTINUE TO MONITOR. WILL CONTINUE TO MONITOR. DAUGHTER AND SON VISITED.
[2018-04-08] VITALS: BP 150/67
[2018-04-08] MEDS: BLOOD SUGAR DIAGNOSTIC 1 EACH STRIP IN SCH ×5 (00:38→23:41)
[2018-04-08] MEDS: IPRATROPIUM NEB FS 0.5 MG/2.5 ML AMPUL.NEB NEB SCH ×6 (03:29→23:11)
[2018-04-08] MEDS: ALBUTEROL HALF STRENGTH 1.25 MG/3 ML VIAL.NEB NEB SCH ×6 (03:29→23:11)
[2018-04-08 04:00] VITALS: BP 150/78
[2018-04-08] MEDS: MEROPENEM 1 G in IV NS 0.9% 100 ML IV SCH ×2 (05:21→16:49)
[2018-04-08 06:15] LABS: BASOPHILS # (AUTO) 0.1 /CMM (0.0-0.2); BASOPHILS % (AUTO) 0.4 % (0.0-2.0); EOSINOPHILS % (AUTO) 0.6 % (0.0-6.0); HEMATOCRIT 29 % (39-51); HEMOGLOBIN 10.9 g/dL (13.5-17.5); LYMPHOCYTES # (AUTO) 1.4 /CMM (0.8-4.8); MEAN CORPUSCULAR HGB CONC 37 g/dl (31.0-36.0); MEAN CORPUSCULAR VOLUME 97 fL (80-96); MONOCYTES # (AUTO) 0.7 /CMM (0.1-1.30); MONOCYTES % (AUTO) 5.3 % (2.0-12.0); NEUTROPHILS # (AUTO) 11.3 /CMM (1.8-8.9); NEUTROPHILS % (AUTO) 83.7 % (43.0-81.0); PLATELET COUNT (AUTO) 216 /CMM (150-450); RED BLOOD CELL COUNT(AUTO) 3.02 MIL/uL (4.5-6.0); WHITE BLOOD COUNT (AUTO) 13.6 K/uL (4.3-11.0)
[2018-04-08] MEDS: ACETYLCYSTEINE 10% SOLN 400 MG/4 ML VIAL NEB SCH ×3 (07:34→23:11)
--- NOTE | 2018-04-08 07:34 | NUR ---
NITISH/RN NOTES: REPORT GIVEN TO AM NURSE FOR JERRY.
[2018-04-08 08:00] VITALS: BP_SYST 111; BP_SYST 150; BP_DIAS 55; BP_DIAS 71
--- NOTE | 2018-04-08 08:00 | NUR ---
NITISH RN OPENING SHIFT NOTE PATIENT ALERT TO NAME IKER SPEAKING. NORMAL SINUS RHYTHM , CARSON CATH DRAINING YELLOW URINE, RESTRAINTS INTACT PULSES PRESENT, NPO STATUS REMAINS THE SAME, SIGN ABOVE BED " npo" . RIGHT UPPER PICC LINE IN PLACE FLUSHING WELL, BLOOD RETURN PRESENT. ACCUCHECK EVERY 4 HOURS BLOOD SUGAR 90 AT 0800. PENDING BLOOD URINE AND RESPIRATORY CULTURE. AWAITING TRANSFER TO [facility] OR OTHER FACILITY. FAMILY INVOLVED, SPOKE WITH JESSICA THIS AM ON THE PHONE [phone]. RESPIRATORY SUCTIONED PATIENT THIS AM 200 ML DRAINAGE BLOOD TINGED, CONTINUE TO MONITOR. PATIENT.
[2018-04-08] MEDS: PANTOPRAZOLE 40 MG VIAL IV SCH ×2 (08:12→20:34)
[2018-04-08] MEDS: NICOTINE PATCH (7MG) 7 MG PATCH.TD24 TD SCH (08:12)
[2018-04-08] MEDS: SUCRALFATE 1 G/10 ML UDC GT SCH ×3 (08:13→17:00)
[2018-04-08 08:40] LABS: CARBON DIOXIDE 23 mmol/L (21-32); CHLORIDE 107 mmol/L (98-107); GLUCOSE 113 mg/dL (74-106); MAGNESIUM 1.8 mg/dL (1.8-2.4); PHOSPHORUS 2.5 mg/dL (2.5-4.9); POTASSIUM 3.2 mmol/L (3.5-5.1); SODIUM SERUM 139 mmol/L (136-145); UREA NITROGEN, BLOOD 27 mg/dL (7-18)
[2018-04-08] MEDS ORDERED: TPN BAG #20 IV PRN ×16 (09:30→09:34)
[2018-04-08] MEDS ORDERED: TPN BAG #18 IV PRN ×8 (09:30)
[2018-04-08] MEDS ORDERED: TPN IV PRN ×6 (09:30)
[2018-04-08 12:00] VITALS: BP_SYST 168; BP_DIAS 61; BP_DIAS 73
--- NOTE | 2018-04-08 12:00 | NUR ---
RN NOTE FAMILY CAME TODAY TO SEE PATIENT. EXPLAINED CONDITION WITH DR SCOTT. CONTINUE TO MONITOR PATIENTS. RHOCHI HEAR THROUGH OUT LUNG DERAS. RESPIRATORY THERAPIST CAME BY AND GAVE BREATHING TREATMENTS THIS MORNING AND AFTERNOON. 02 AT 93% SUCTIONING AND RHONCHI DONE. CONTINUE TO MONITOR.
[2018-04-08] MEDS: hydrALAZINE HCL IV 20 MG VIAL IV PRN (12:09)
[2018-04-08 16:00] VITALS: BP 156/56
--- NOTE | 2018-04-08 19:17 | NUR ---
RN CLOSING NOTE PATIENT ALERT X1. IN BED RESTRAITNS IN PLACE, PULSES PRESENT. REPOSITIONED EVERY 2 HOURS. SINUS RHYTHM. RIGHT UPPER PICLINE PATENT AND INTAKE. LIPIDS INFUSED , RESUME TOMORROW. AWAITING BLOOD CULTURE RESULTS. FAMILY INVOLVED. PATIENT SUCTIONED [id number] OUT SHIFT, AIRWAY CLEAR RHONCHI UPON AUSCLTATION. CONTINUE TO MONITOR.
[2018-04-08 20:00] VITALS: BP_SYST 154; BP_SYST 176; BP_DIAS 67; BP_DIAS 72
--- NOTE | 2018-04-08 20:00 | NUR ---
NITISH/RN NOTES: RECEIVED PT. IN BED ALERT TO SELF VERBALLY RESPONSIVE IN [place]GIAN LANGUAGE. RESPIRATIONS EVEN AND UNLABORED. NO FACIAL GRIMACES OR MOANING NOTED. ON TELE MONITOR W/ SR W/ PAC'S. W/ RABIA. SOFT WRIST RESTRAINTS. HOB ELEVATED FOR ASPIRATIONS. SUCTIONS PRN. HAS A PICC LINE ON BALAJI W/ TPN AT 80 ML/HR. F/C PATENT AND INTACT DRAINING DARK YELLOW URINE. BED ALARMS ON. CALL LIGHT W/REACH. WILL CONTINUE TO MONITOR. DAUGHTER AND SON VISITED.
[2018-04-09] VITALS (8 sets, daily range): BP systolic 152–181; BP diastolic 65–85
[2018-04-09] MEDS: hydrALAZINE HCL IV 20 MG VIAL IV PRN ×3 (00:15→20:02)
[2018-04-09] MEDS: ALBUTEROL HALF STRENGTH 1.25 MG/3 ML VIAL.NEB NEB SCH ×6 (02:42→22:56)
[2018-04-09] MEDS: IPRATROPIUM NEB FS 0.5 MG/2.5 ML AMPUL.NEB NEB SCH ×6 (02:42→22:56)
[2018-04-09] MEDS: MEROPENEM 1 G in IV NS 0.9% 100 ML IV SCH (04:04)
[2018-04-09] MEDS: BLOOD SUGAR DIAGNOSTIC 1 EACH STRIP IN SCH ×4 (05:56→23:09)
[2018-04-09 06:22] LABS: BASOPHILS % (AUTO) 0.3 % (0.0-2.0); CALCIUM, SERUM 7.9 mg/dL (8.5-10.1); CARBON DIOXIDE 24 mmol/L (21-32); CHLORIDE 107 mmol/L (98-107); CREATININE 0.9 mg/dL (0.6-1.3); EOSINOPHILS % (AUTO) 1.9 % (0.0-6.0); GLUCOSE 113 mg/dL (74-106); HEMATOCRIT 31 % (39-51); HEMOGLOBIN 10.4 g/dL (13.5-17.5); LYMPHOCYTES # (AUTO) 1.4 /CMM (0.8-4.8); LYMPHOCYTES % (AUTO) 11.7 % (20.0-44.0); MAGNESIUM 1.9 mg/dL (1.8-2.4); MEAN CORPUSCULAR HGB CONC 34 g/dl (31.0-36.0); MEAN CORPUSCULAR VOLUME 91 fL (80-96); MONOCYTES # (AUTO) 0.7 /CMM (0.1-1.30); NEUTROPHILS # (AUTO) 9.4 /CMM (1.8-8.9); NEUTROPHILS % (AUTO) 80.1 % (43.0-81.0); PHOSPHORUS 2.4 mg/dL (2.5-4.9); PLATELET COUNT (AUTO) 222 /CMM (150-450); POTASSIUM 3.4 mmol/L (3.5-5.1); RED BLOOD CELL COUNT(AUTO) 3.39 MIL/uL (4.5-6.0); SODIUM SERUM 138 mmol/L (136-145); UREA NITROGEN, BLOOD 23 mg/dL (7-18); WHITE BLOOD COUNT (AUTO) 11.7 K/uL (4.3-11.0)
[2018-04-09] MEDS ORDERED: TPN BAG #19 IV PRN ×6 (07:10)
[2018-04-09] MEDS ORDERED: TPN BAG #20 IV PRN ×8 (07:12)
[2018-04-09] MEDS ORDERED: TPN BAG #21 IV PRN ×6 (07:30)
[2018-04-09] MEDS: ACETYLCYSTEINE 10% SOLN 400 MG/4 ML VIAL NEB SCH ×3 (07:39→22:56)
--- NOTE | 2018-04-09 07:47 | NUR ---
NITISH/RN NOTES: REPORT GIVEN TO AM SHIFT NURSE FOR JERRY.
--- NOTE | 2018-04-09 08:00 | NUR ---
NITISH/RN NOTES: RECEIVED PT. IN BED ALERT TO SELF VERBALLY RESPONSIVE IN BENGALI LANGUAGE. RESPIRATIONS SLIGHTER LABORED.WITH CHEST CONGESTION NOTED NO FACIAL GRIMACES OR MOANING NOTED. ON TELE MONITOR W/ SR WITH RABIA. SOFT WRIST RESTRAINTS. HOB ELEVATED FOR ASPIRATIONS. SUCTIONS DONE BY RT AT BEDSIDE . HAS A PICC LINE ON BALAJI W/ TPN AT 80 ML/HR. F/C PATENT AND INTACT DRAINING ALLEN YELLOW URINE. BED ALARMS ON. CALL LIGHT W/REACH. WILL CONTINUE TO MONITOR RT AT BEDSIDE BREATHINGS TX DONE BY RT AND ORAL SUCTION DONE ,WILL CONT TO MONITOR CLOSELY , BED IN LOWEST AND LOCKED POSITION
[2018-04-09 08:40] LABS: ABG BASE EXCESS -0.9 mmol/L; ABG OXYGEN SATURATION 90.5 % (92.0-98.5); ABG PCO2 30.1 mmHg (35.0-45.0); ABG PH 7.479 (7.350-7.450); ABG PO2 59.8 mmHg (75.0-100.0); AaDO2 53.9 mmHg; COHb 0.1 % (0.5-1.5); MetHb 0.5 % (0.0-1.5); SITE, ABG Right Radial; VENT MODE, BG ROOM AIR
[2018-04-09] MEDS: SCOPOLAMINE HBR 1 EA PATCH.TD72 TD SCH (08:45)
[2018-04-09] MEDS: NICOTINE PATCH (7MG) 7 MG PATCH.TD24 TD SCH (08:45)
[2018-04-09] MEDS: PANTOPRAZOLE 40 MG VIAL IV SCH ×2 (08:46→20:01)
[2018-04-09] MEDS: SUCRALFATE 1 G/10 ML UDC GT SCH ×3 (08:54→16:31)
--- NOTE | 2018-04-09 11:07 | NUR ---
NITISH RANDLE SPOKE WITH DR PAMELA SHUKLA THAT PATIENT VERY CONGESTED BREATHING TX DONE, SUCTION DONE ABG RESULT REPORTED WILL F\U
--- NOTE | 2018-04-09 12:48 | NUR ---
CERTIFIED NEURODIAGNOSTIC TECHNOLOGIST NOTE SUCTION DONE WITH ,BLOODY TINGE SECRETION ,NOTED MOD AND MOUTH CARE DONE, RT AT BEDSIDE ,FAMILY AT BEDSIDE
--- NOTE | 2018-04-09 13:59 | NUR ---
RECRUITING CONSULTANT NOTE DR PATHAK AT BEDSIDE AWARE THAT PATIENT STILL HAS BLOODY SECRETION , NO NEW ORDER AT THIS TIME , WILL F\U
[2018-04-09] MEDS: FAT EMULSION 20% 500 ML in PREMIX 1 EA IV SCH (14:39)
[2018-04-09] MEDS: CEFEPIME 2 GM in IV D5W 100 ML IV SCH (15:24)
--- NOTE | 2018-04-09 15:30 | NUR ---
LAYOUT TECHNICIAN NOTE UNABLE TO REMOVE SOFT RESTRAIN STILL AT RISK TO REMOVE ALL LINES.PER RT NASAL TRUMPET INSERTED TO SUCTION , ALL NEEDS ATTENDED Addendum: 04/09/18 at 1534 by JUANCHO PEDRAZA RN SPOKE WITH PHARMACIST AWARE THAT K 3.4 STATEDTHAT K IS REPLACED WITH TPN ,SPOKE WITH LIANNE
--- NOTE | 2018-04-09 15:43 | NUR ---
RT NOTE NASAL TRUMPET INSERTED BECAUSE OF BLOODY AND FREQUENT SUCTIONING. RN AWARE.
--- NOTE | 2018-04-09 18:29 | NUR ---
CARE DIRECTOR NOTE NASAL SUCTION DONE ,MOD ANT OF YELLOW THICK SECRETION OBTAINED ,KEEP CLEAN DRY CONT ON TPN AND LIPID ORDERED ,WILL CONT TO MONITOR CLOSELY
--- NOTE | 2018-04-09 20:58 | NUR ---
CLERK TRAVEL RESERVATIONS NOTES RECEIVED PT ON BED. A/O X1. ON NASAL CANNULA 2LPM NO RESPIRATORY DISTRESS NOTED. ON TELE MONITOR SR. ON CARSON CATH DRAINING YELLOW URINE. IV ACCESS BALAJI PICC LINE WITH TPN RUNNING @ 80CC/HR AND LIPID @ 20CC/HR. IV ACCESS PATENT AND INTACT. PT ON BILATERAL SOFT RESTRAINTS. HEAD OF BED ELEVATED. SIDE RAILS UP. CALL LIGHT WITHIN REACH. BED ALARM ON. WILL CONTINUE TO MONITOR PT CLOSELY.
[2018-04-10] VITALS (8 sets, daily range): BP systolic 124–181; BP diastolic 57–81
[2018-04-10] MEDS ORDERED: hydrALAZINE HCL IV 20 MG VIAL ONE ×2 (00:52→21:50)
[2018-04-10] MEDS: hydrALAZINE HCL IV 20 MG VIAL IV PRN ×2 (00:55→21:55)
[2018-04-10] MEDS: CEFEPIME 2 GM in IV D5W 100 ML IV SCH ×2 (02:01→15:40)
[2018-04-10] MEDS: IPRATROPIUM NEB FS 0.5 MG/2.5 ML AMPUL.NEB NEB SCH ×6 (03:19→23:29)
[2018-04-10] MEDS: ALBUTEROL HALF STRENGTH 1.25 MG/3 ML VIAL.NEB NEB SCH ×6 (03:19→23:29)
[2018-04-10] MEDS: BLOOD SUGAR DIAGNOSTIC 1 EACH STRIP IN SCH ×4 (05:06→23:08)
[2018-04-10 06:19] LABS: BASOPHILS % (AUTO) 0.2 % (0.0-2.0); EOSINOPHILS % (AUTO) 1.4 % (0.0-6.0); HEMATOCRIT 31 % (39-51); HEMOGLOBIN 10.4 g/dL (13.5-17.5); LYMPHOCYTES % (AUTO) 8.8 % (20.0-44.0); MEAN CORPUSCULAR HGB CONC 33 g/dl (31.0-36.0); MEAN CORPUSCULAR VOLUME 92 fL (80-96); MONOCYTES # (AUTO) 0.8 /CMM (0.1-1.30); MONOCYTES % (AUTO) 7.2 % (2.0-12.0); NEUTROPHILS # (AUTO) 9.5 /CMM (1.8-8.9); NEUTROPHILS % (AUTO) 82.4 % (43.0-81.0); PLATELET COUNT (AUTO) 229 /CMM (150-450); WHITE BLOOD COUNT (AUTO) 11.5 K/uL (4.3-11.0)
[2018-04-10 06:46] LABS: CALCIUM, SERUM 7.8 mg/dL (8.5-10.1); CARBON DIOXIDE 24 mmol/L (21-32); CHLORIDE 109 mmol/L (98-107); GLUCOSE 126 mg/dL (74-106); MAGNESIUM 2.1 mg/dL (1.8-2.4); PHOSPHORUS 2.4 mg/dL (2.5-4.9); SODIUM SERUM 141 mmol/L (136-145); UREA NITROGEN, BLOOD 23 mg/dL (7-18)
--- NOTE | 2018-04-10 06:58 | NUR ---
HARP MAKER NOTES NO ACUTE CHANGES NOTED DURING THE SHIFT, PROVIDED COMFORT AND SAFETY. PROVIDED FREQUENT SUCTIONING. WILL ENDORSE TO THE AM NURSE FOR CONTINUITY OF CARE.
--- NOTE | 2018-04-10 07:05 | NUR ---
CONTACT CENTER PROFESSIONAL OPENING NOTES RECEIVED PT LYING ON BED. ALERT AND ORIENTED X1. ON NASAL CANNULA 2L, TOLERATING WELL, NO RESPIRATORY DISTRESS NOTED. ON TELE MONITOR SR. ON CAROSN CATH DRAINING WITH YELLOW URINE. IV ACCESS BALAJI PICC LINE WITH TPN RUNNING @ 81ML/HR AND LIPID @ 20ML/HR. IV ACCESS DRY, CLEAN, AND INTACT. PT ON BILATERAL SOFT RESTRAINTS, BILATERAL AND RADIAL PULSES CHECKED AND WNL. HEAD OF BED ELEVATED. SIDE RAILS UP. BED LOCKED AND LOW. CALL LIGHT WITHIN REACH. BED ALARM ON. WILL CONTINUE TO MONITOR PT CLOSELY THROUGHOUT SHIFT.
[2018-04-10] MEDS: ACETYLCYSTEINE 10% SOLN 400 MG/4 ML VIAL NEB SCH ×3 (07:37→23:29)
[2018-04-10 08:20] LABS: ABG BASE EXCESS -0.8 mmol/L; ABG OXYGEN SATURATION 96.3 % (92.0-98.5); ABG PCO2 32.9 mmHg (35.0-45.0); ABG PH 7.454 (7.350-7.450); ABG PO2 90.5 mmHg (75.0-100.0); AaDO2 99.2 mmHg; MetHb 0.5 % (0.0-1.5); O2Hb 95.8 % (94.0-97.0); SITE, ABG Right Radial; VENT MODE, BG NC 4L
[2018-04-10] MEDS: SUCRALFATE 1 G/10 ML UDC GT SCH ×3 (08:56→16:33)
[2018-04-10] MEDS: NICOTINE PATCH (7MG) 7 MG PATCH.TD24 TD SCH (08:58)
[2018-04-10] MEDS: PANTOPRAZOLE 40 MG VIAL IV SCH ×2 (08:58→21:51)
[2018-04-10] MEDS ORDERED: TPN BAG #22 IV PRN ×8 (11:30)
[2018-04-10] MEDS ORDERED: TPN BAG #23 IV PRN ×6 (11:30)
--- NOTE | 2018-04-10 14:30 | NUR ---
MS RN NOTES TRANSFERRED PT FROM ROOM 103 TO 114-1.
--- NOTE | 2018-04-10 19:05 | NUR ---
BIOSTATISTICIAN CLOSING NOTES PT LYING ON BED. ALERT AND ORIENTED X1. ON NASAL CANNULA 3L, TOLERATING WELL, NO RESPIRATORY DISTRESS NOTED. ON CARSON CATH DRAINING WITH YELLOW URINE. IV ACCESS BALAJI PICC LINE WITH TPN RUNNING @ 80ML/HR. IV ACCESS DRY, CLEAN, AND INTACT. PT ON BILATERAL SOFT RESTRAINTS, BILATERAL AND RADIAL PULSES CHECKED AND WNL. HEAD OF BED ELEVATED. SIDE RAILS UP. BED LOCKED AND LOW. CALL LIGHT WITHIN REACH. BED ALARM ON. ENDORSED TO AGED OR DISABLED CARE WORKER NURSE FOR JERRY.
--- NOTE | 2018-04-10 20:00 | NUR ---
MS RN NOTES RECEIVED PT ON BED. ON NASAL CANNULA 2LPM SATURATING WELL NO RESPIRATORY DISTRESS NOTED. IV ACCESS ON BALAJI PICC LINE WITH TPN @ 80CC/HR , LINE PATENT AND INTACT. PT A/O X 1 CONFUSED. ON BILATERAL SOFT RESTRAINTS. CARSON CATH DRAINING YELLOW URINE. HEAD OF BED ELEVATED.SIDE RAILS UP. CALL LIGHT WITHIN REACH. BED ALARM ON. WILL CONTINUE TO MONITOR PT CLOSELY.
[2018-04-11] MEDS: CEFEPIME 2 GM in IV D5W 100 ML IV SCH ×2 (02:01→16:15)
[2018-04-11] MEDS: IPRATROPIUM NEB FS 0.5 MG/2.5 ML AMPUL.NEB NEB SCH ×6 (03:14→23:29)
[2018-04-11] MEDS: ALBUTEROL HALF STRENGTH 1.25 MG/3 ML VIAL.NEB NEB SCH ×6 (03:14→23:29)
[2018-04-11] MEDS: BLOOD SUGAR DIAGNOSTIC 1 EACH STRIP IN SCH ×3 (05:12→18:27)
[2018-04-11 07:09] LABS: BASOPHILS % (AUTO) 0.3 % (0.0-2.0); EOSINOPHILS % (AUTO) 1.1 % (0.0-6.0); HEMATOCRIT 29 % (39-51); HEMOGLOBIN 9.8 g/dL (13.5-17.5); LYMPHOCYTES # (AUTO) 1.1 /CMM (0.8-4.8); LYMPHOCYTES % (AUTO) 11.5 % (20.0-44.0); MEAN CORPUSCULAR HGB CONC 33 g/dl (31.0-36.0); MEAN CORPUSCULAR VOLUME 92 fL (80-96); MONOCYTES # (AUTO) 0.8 /CMM (0.1-1.30); MONOCYTES % (AUTO) 8.5 % (2.0-12.0); NEUTROPHILS # (AUTO) 7.8 /CMM (1.8-8.9); NEUTROPHILS % (AUTO) 78.6 % (43.0-81.0); PLATELET COUNT (AUTO) 196 /CMM (150-450); RED BLOOD CELL COUNT(AUTO) 3.18 MIL/uL (4.5-6.0); WHITE BLOOD COUNT (AUTO) 9.9 K/uL (4.3-11.0)
[2018-04-11] MEDS: ACETYLCYSTEINE 10% SOLN 400 MG/4 ML VIAL NEB SCH ×3 (07:12→23:29)
--- NOTE | 2018-04-11 07:26 | NUR ---
FARMWORKER FRYER FARM NOTES NO ACUTE CHANGES NOTED DURING THE SHIFT. PROVIDED COMFORT AND SAFETY. WILL ENDORSE TO THE AM NURSE FOR CONTINUITY OF CARE.
--- NOTE | 2018-04-11 07:30 | NUR ---
TECHNICAL MAINTENANCE SPECIALIST OPENING NOTES RECEIVED PT ON BED. ALERT AND ORIENTED X1. ON NASAL CANNULA 2L, TOLERATING WELL, NO RESPIRATORY DISTRESS NOTED. ON TELE MONITOR SR WITH PAC HR OF 69. ON CARSON CATH DRAINING WITH YELLOW URINE. IV ACCESS BALAJI PICC LINE WITH TPN RUNNING.IV ACCESS CLEAN, AND INTACT. PT ON BILATERAL SOFT RESTRAINTS, BILATERAL AND RADIAL PULSES CHECKED AND WNL. HEAD OF BED ELEVATED. SIDE RAILS UP. BED LOCKED AND LOW. CALL LIGHT WITHIN REACH. BED ALARM ON. WILL CONTINUE TO MONITOR .
[2018-04-11 07:49] LABS: CALCIUM, SERUM 7.8 mg/dL (8.5-10.1); CARBON DIOXIDE 25 mmol/L (21-32); CHLORIDE 106 mmol/L (98-107); CREATININE 0.9 mg/dL (0.6-1.3); GLUCOSE 116 mg/dL (74-106); MAGNESIUM 2.1 mg/dL (1.8-2.4); PHOSPHORUS 2.7 mg/dL (2.5-4.9); SODIUM SERUM 139 mmol/L (136-145); UREA NITROGEN, BLOOD 21 mg/dL (7-18)
[2018-04-11 08:00] VITALS: BP_SYST 156; BP_DIAS 68; BP_DIAS 75
[2018-04-11] MEDS: SUCRALFATE 1 G/10 ML UDC GT SCH ×3 (08:08→16:40)
[2018-04-11] MEDS: NICOTINE PATCH (7MG) 7 MG PATCH.TD24 TD SCH (08:11)
[2018-04-11] MEDS: PANTOPRAZOLE 40 MG VIAL IV SCH ×2 (08:11→21:57)
[2018-04-11 12:00] VITALS: BP_SYST 160; BP_DIAS 72; BP_DIAS 75
--- NOTE | 2018-04-11 13:00 | NUR ---
TRAIN BRAKER NOTE SEEN BY ,UPDATED PATIENT CONDITION [facility],GOT NEW ORDERS.EXPRESSED CONCERN BY FAMILY MEMBER ABOUT PLACEMENT IN [facility].DOCTOR EXPLAINED TO THE DAUGHTER IN PERSON.ANSWERED ALL THE QUESTIONS.WILL CONTINUE TO MONITOR..
[2018-04-11 16:00] VITALS: BP 141/66
[2018-04-11] MEDS: FAT EMULSION 20% 500 ML in PREMIX 1 EA IV SCH (16:14)
[2018-04-11] MEDS ORDERED: TPN BAG #24 IV PRN ×8 (16:30)
--- NOTE | 2018-04-11 18:00 | NUR ---
FIG BAR MACHINE OPERATOR NOTE CARAFATE NOT GIVEN .PATIENT IS NPO.
[2018-04-11] MEDS: INSULIN REGULAR, HUMAN 100 UNIT/ML 3 ML VIAL SQ PRN (18:28)
--- NOTE | 2018-04-11 18:54 | NUR ---
TESTER OPERATOR CLOSING NOTES PT ON BED. ALERT AND ORIENTED X1. ON NASAL CANNULA 2L, TOLERATING WELL, NO RESPIRATORY DISTRESS NOTED. ON TELE MONITOR SR WITH PAC HR OF 69. ON CARSON CATH DRAINING WITH YELLOW URINE. SUCTION DONE.IV ACCESS BALAJI PICC LINE WITH TPN RUNNING.IV ACCESS CLEAN, AND INTACT. PT ON BILATERAL SOFT RESTRAINTS, BILATERAL AND RADIAL PULSES CHECKED AND WNL. HEAD OF BED ELEVATED. SIDE RAILS UP. BED LOCKED AND LOW. CALL LIGHT WITHIN REACH. BED ALARM ON. WILL ENDORSE TO PM NURSE FOR JERRY.
[2018-04-11 20:00] VITALS: BP 172/57
[2018-04-12] VITALS: BP 154/62
[2018-04-12] MEDS: BLOOD SUGAR DIAGNOSTIC 1 EACH STRIP IN SCH ×4 (00:26→17:37)
[2018-04-12] MEDS: INSULIN REGULAR, HUMAN 100 UNIT/ML 3 ML VIAL SQ PRN ×2 (00:26→06:15)
[2018-04-12] MEDS: IPRATROPIUM NEB FS 0.5 MG/2.5 ML AMPUL.NEB NEB SCH ×6 (02:56→23:36)
[2018-04-12] MEDS: ALBUTEROL HALF STRENGTH 1.25 MG/3 ML VIAL.NEB NEB SCH ×6 (02:56→23:36)
[2018-04-12] MEDS: CEFEPIME 2 GM in IV D5W 100 ML IV SCH ×2 (02:59→15:06)
[2018-04-12 04:00] VITALS: BP 160/73
[2018-04-12] MEDS: ACETYLCYSTEINE 10% SOLN 400 MG/4 ML VIAL NEB SCH ×3 (07:24→23:36)
--- NOTE | 2018-04-12 07:30 | NUR ---
placed into room with 97% spo2 Addendum: 04/12/18 at 0730 by JAMISON SUMMERS RT Amended: Links added.
[2018-04-12 07:38] LABS: BASOPHILS % (AUTO) 0.7 % (0.0-2.0); HEMATOCRIT 30 % (39-51); HEMOGLOBIN 9.9 g/dL (13.5-17.5); LYMPHOCYTES % (AUTO) 13.8 % (20.0-44.0); MEAN CORPUSCULAR HGB CONC 34 g/dl (31.0-36.0); MEAN CORPUSCULAR VOLUME 92 fL (80-96); MONOCYTES # (AUTO) 0.6 /CMM (0.1-1.30); NEUTROPHILS # (AUTO) 5.3 /CMM (1.8-8.9); NEUTROPHILS % (AUTO) 74.5 % (43.0-81.0); PLATELET COUNT (AUTO) 197 /CMM (150-450); RED BLOOD CELL COUNT(AUTO) 3.21 MIL/uL (4.5-6.0); WHITE BLOOD COUNT (AUTO) 7.1 K/uL (4.3-11.0)
[2018-04-12 07:55] LABS: CALCIUM, SERUM 7.9 mg/dL (8.5-10.1); CARBON DIOXIDE 27 mmol/L (21-32); CHLORIDE 107 mmol/L (98-107); CREATININE 0.9 mg/dL (0.6-1.3); GLUCOSE 117 mg/dL (74-106); MAGNESIUM 2.1 mg/dL (1.8-2.4); PHOSPHORUS 2.9 mg/dL (2.5-4.9); POTASSIUM 3.7 mmol/L (3.5-5.1); SODIUM SERUM 142 mmol/L (136-145); UREA NITROGEN, BLOOD 19 mg/dL (7-18)
[2018-04-12 08:00] VITALS: BP 177/76
--- NOTE | 2018-04-12 08:00 | NUR ---
PLAN CONSULTANT NOTES PT ON BED. ALERT AND ORIENTED X1. ON RA SAT 97% BY RT NASAL SUCTION DONE NEEDED, TOLERATING WELL, NO RESPIRATORY DISTRESS NOTED. ON TELE MONITOR SR WITH PAC HR OF66. ON CARSON CATH DRAINING WITH YELLOW URINE.IV ACCESS BALAJI PICC LINE IN PLVE NO S\S INFECTION NOTED WITH TPN RUNNING.IV ACCESS CLEAN, AND INTACT. PT ON BILATERAL SOFT RESTRAINTS, BILATERAL AND RADIAL PULSES CHECKED AND WNL. HEAD OF BED ELEVATED. SIDE RAILS UP. BED LOCKED AND LOW. CALL LIGHT WITHIN REACH. BED ALARM ONWILL CONT TO MONITOR CLOSELY.
[2018-04-12] MEDS: PANTOPRAZOLE 40 MG VIAL IV SCH ×2 (08:14→21:35)
[2018-04-12] MEDS: NICOTINE PATCH (7MG) 7 MG PATCH.TD24 TD SCH (08:14)
[2018-04-12] MEDS: SCOPOLAMINE HBR 1 EA PATCH.TD72 TD SCH (08:14)
[2018-04-12] MEDS: SUCRALFATE 1 G/10 ML UDC GT SCH ×3 (08:14→16:50)
--- NOTE | 2018-04-12 11:00 | NUR ---
PRODUCT OPERATIONS ASSOCIATE NOTE ABLE TO MAKE BM, KEEP CLEAN DRY, NASAL SUCTION DONE BY RT ,MOD ANT THICK WHITE SECRETIONS NOTED ,ON SOFT RESTRAIN ORDERED WILL CONT TO MONITOR CLOSELY
[2018-04-12 12:00] VITALS: BP 167/57
[2018-04-12 12:16] VITALS: BP 167/57
--- NOTE | 2018-04-12 12:30 | NUR ---
HANDBAG STITCHER NOTE SEEN BY DR SCOTT , AWARE PATIENT CONDITION ,NO BED AVAILABLE AT [facility], WILL F\U, TELECOMMUNICATIONS SPECIALIST AWARE CHRIS ,SPOKE WITH DAUGHTER JESSICA
[2018-04-12] MEDS ORDERED: TPN BAG #26 IV PRN ×8 (13:30)
[2018-04-12] MEDS ORDERED: TPN BAG #25 IV PRN ×6 (13:30)
--- NOTE | 2018-04-12 15:49 | NUR ---
DAYLIGHT DRILLER NOTE ON TPN ORDERED , FREQUENT NASOPHARYNGEAL SUCTION DONE ,UNABLE TO REMOVE SOFT RESTRAIN,PATIENT STILL AT RISK TO REMOVE ALL LINES, WILL CONT TO MONITOR CLOSELY
[2018-04-12 16:00] VITALS: BP 111/61
--- NOTE | 2018-04-12 19:00 | NUR ---
MANAGER COMPLIANCE NOTES PATIENT ON BED, ALERT AND ORIENTED X1, ON RA SAT 95-97% SUCTIONED AT THIS TIME, TOLERATING WELL, NO SOB/ACUTE DISTRESS NOTED, ON TELE MONITOR SR WITH PAC HR AT 60S AT THIS TIME, BALAJI PICC LINE, PATENT AND INTACT, NO S\S INFECTION NOTED WITH TPN INFUSING WELL AND PATIENT TOLERATED WELL, ON BILATERAL SOFT RESTRAINTS,BOTH EXTREMITIES WITH PRESENT PULSES, CALL LIGHT WITHIN REACH, HOB ELEVATED AT ALL TIMES, SIDE RAILS UP, BED LOCKED AND IN LOW POSITION WITH ALARM ON, WILL CONTINUE TO MONITOR CLOSELY.
--- NOTE | 2018-04-12 19:00 | NUR ---
BOX COVERER HAND NOTE RECEIVED CALL FROM [facility] SHAHRZAD ABOUT TRANSFER PATIENT TO [facility] ,CALLED TO LINING STUFFER CHRIS, WILL BE ARRANGED TO TRANSFER ,AWAITING FOR FURTHER INSTRUCTION ,PER SHAHRZAD FAXED PROGRESS NOTES TO [facility] WILL F\UP
--- NOTE | 2018-04-12 19:38 | NUR ---
SUPERVISOR POWDER AND PRIMER CANNING NOTE ENDORSED CARE TO CHEMO CUEVAS ,REPORTED THAT DAUGHTER JESSICA NEED TO NOTIFIED PRIOR TRANSFER TO [facility] ALSO SPOKE WITH CHRIS TRANSCRIPTION COORDINATOR ,STATED THAT WORKING FOR TRANSFER
--- NOTE | 2018-04-12 19:41 | NUR ---
1829 Received call From Vane ASHLEY id center bed is available, requesting for updated progress notes. Faxed all documents needed. Per Vane her MD will review and will call once cleared and bed is assigned. CN made aware. Awaiting for call back from [facility] Do [email or web address] made aware. Arranged transportation on will call via [employer] ([employer]) trip#: [phone]. Addendum: 04/12/18 at 1941 by CHRIS MADRIGAL [facility] Amended: Links added.
--- NOTE | 2018-04-12 21:40 | NUR ---
COMPLIANCE INTERN NOTES, RECEIVED A CALL FROM AGUSTÍN FIRE EATER AT [facility] AND GIVE REPORT ABOUT PATIENT, PATIENT IS GOING TO [facility] [place]/TELEMETRY ROOM [address] [facility],AT [address] [address].
[2018-04-12] MEDS: LORAZEPAM INJ 2 MG/ML VIAL IV PRN (22:56)
[2018-04-13] VITALS: BP 149/66
[2018-04-13] MEDS: BLOOD SUGAR DIAGNOSTIC 1 EACH STRIP IN SCH
--- NOTE | 2018-04-13 00:20 | NUR ---
TRUCK JUMPER NOTES, AMBULANCE LEFT WITH PATIENT IN STABLE CONDITION TO [facility], BREATHING EVEN AND UNLABORED, NO SOB/ACUTE DISTRESS NOTED VS 98.0, 63, 20, 95, 149/66, 0/10, REPORT GIVEN TO AMBULANCE EMT, ALONG WITH DC PAPERWORK AND RECORD FOR MEDICATIONS AND TREATMENTS WELL, LABS AND PROCEDURES, PATIENT WITH BALAJI PICC LINE WITH 3LUMENDS PATENT AND INTACT, F/C IN PLACE, EMPTY PRIOR TO TRANSFER, NASAL TRUMPET IN RIGHT NARE IN PLACED, SUCTION PROVIDED PRIOR TO DC, PATIENT IN BILATERAL SOFT WRIST RESTRAINS SECONDARY TO PATIENT REMOVING TUBES AND MEDICAL EQUIPMENT, ENDORSED TO INTERVENTIONAL PAIN PHYSICIAN, AND VERBALIZED UNDERSTANDING, DAUGHTER AND SON HERE PRIOR TO DC AND WILL ACCOMPANIED PATIENT TO THE [facility], ATIVAN ADMINISTERED PRIOR TO DC PER DAUGHTER REQUEST.
== END 2018-04-13 00:20 | disposition short-term general hospital (02) | DRG 917 ==
LOC: ICU 22:52 → TELE-TD 04-06 16:02 → TELE1 04-09 11:41 → MEDSG1 04-10 10:03 → TELE1 04-11 03:06
PROVIDERS: ADMIT Nurse Practitioner Acute Care; ATTEND Family Medicine
PROC: 5A1955Z Respiratory Ventilation, Greater than 96 Consecutive Hours (ICD-10-PCS; principal; 2018-03-26)
PROC: 0BH17EZ Insertion of Endotracheal Airway into Trachea, Via Natural or Artificial Opening (ICD-10-PCS; 2018-03-26)
PROC: 0DJ08ZZ Inspection of Upper Intestinal Tract, Via Natural or Artificial Opening Endoscopic (ICD-10-PCS; 2018-03-28)
PROC: 02HV33Z Insertion of Infusion Device into Superior Vena Cava, Percutaneous Approach (ICD-10-PCS; 2018-03-28)
PROC: B548ZZA Ultrasonography of Superior Vena Cava, Guidance (ICD-10-PCS; 2018-03-28)
PROC: 0BJ08ZZ Inspection of Tracheobronchial Tree, Via Natural or Artificial Opening Endoscopic (ICD-10-PCS; 2018-03-30)
DX: T54.3X1A Toxic effect of corrosive alkalis and alkali-like substances, accidental (unintentional), initial encounter (principal); I21.A1 Myocardial infarction type 2; J96.01 Acute respiratory failure with hypoxia; G93.40 Encephalopathy, unspecified; E44.0 Moderate protein-calorie malnutrition; J90 Pleural effusion, not elsewhere classified; E87.1 Hypo-osmolality and hyponatremia; N17.9 Acute kidney failure, unspecified; K22.10 Ulcer of esophagus without bleeding; N40.0 Benign prostatic hyperplasia without lower urinary tract symptoms; K22.8 Other specified diseases of esophagus; E83.42 Hypomagnesemia; F03.90 Unspecified dementia, unspecified severity, without behavioral disturbance, psychotic disturbance, mood disturbance, and anxiety; I25.10 Atherosclerotic heart disease of native coronary artery without angina pectoris; E87.6 Hypokalemia; Y92.009 Unspecified place in unspecified non-institutional (private) residence as the place of occurrence of the external cause; D63.8 Anemia in other chronic diseases classified elsewhere; F09 Unspecified mental disorder due to known physiological condition; F41.9 Anxiety disorder, unspecified; I25.2 Old myocardial infarction; K29.70 Gastritis, unspecified, without bleeding; I10 Essential (primary) hypertension
CPT/HCPCS: 31623; 31720; 36415; 36569; 36600; 71045-TC; 74018; 80048-TC; 80053-TC; 80061-TC; 81000-TC; 82728-TC; 82803-TC; 82947-TC; 82962-TC; 83540-TC; 83735-TC; 84100-TC; 84443-TC; 84478-TC; 84484-TC; 85025-TC; 85610-TC; 85730-TC; 87040-TC; 87070-TC; 87081-TC; 87086-TC; 87186-TC; 93307-TC; 94003-TC; 94640-TC; 94760-TC; 94799-TC; 97110-TC; 97530-TC; A4216; A4217; A4624; A6402; C1751; C9113; G0378; J0360; J0692; J1170; J1815; J2060; J2185; J2543; J2930; J3475; J3480; J3490; J7030; J7050; J7060; J7070

== ENCOUNTER 2018-04-19 11:57 | Inpatient (IN) | payer MEDICARE, OTHER ==
[~2018-04-19] VITALS: Ht 152.4 cm; Wt 69.9 kg
[2018-04-19 11:00] VITALS: BP 158/69
--- NOTE | 2018-04-19 12:50 | NUR ---
HAT IRONER ADMITTING NOTES DIRECT ADMIT PT FROM [facility]IA [facility] ACCOMPANIED BY 2 ZIGZAG MACHINE OPERATOR AT 1100. PT, AWAKE, A/O X 1, ABLE TO RESPOND WITH GARBLE SPEECH. SOLOMON ISLANDER SPEAKING, CAN UNDERSTAND A LITTLE BIT OF SWEDISH. PT ON 6L VIA MASK, WITHOUT DISTRESS NOTED. BREATHING EVEN AND UNLABORED. RIGHT NARE TRUMPET FOR SUCTION; DONE BY RT WITH PINKISH WHITE SECRETION NOTED. ON TELE MONITORING NSR AT THIS MOMENT WITH OCCASIONAL EPISODES OF PACS, HR AT 70. BALAJI 3 LUMEN PICC LINE NOTED, INTACT AND PATENT. NEWLY PLACED PEG TUBE 18 FR PRESENT, ASPIRATED WITHOUT RESIDUALS NOTED; CHECKED PLACEMENT INTRODUCING SMALL AMOUNT OF AIR WITH POSITIVE GURGLING SOUND TO AUSCULTATE. ASPIRATION PRECAUTION OBSERVED. GT DRESSING WAS REPLACED. PT WITH RIGHT HAND MITTEN AND SOFT WRIST RESTRAINT TO LEFT HAND TO PREVENT PT PULLING THE GT AND PICC LINE. FAMILY AWARE. PHOTOS OF SKIN CONDITIONS TAKEN AND FILE ON THE CHART. PT HAS FC 16FR, INDWELLING AND CLEAR YELLOW URINE PRESENT IN THE BAG WITH 60ML OUTPUT. TOOL HONING MACHINE SET UP OPERATOR CC PRESENT ON THE UNIT, SPOKE TO FAMILY; MED RECON WAS DONE. SAFETY PRECAUTIONS INITIATED. BED PLACED IN LOW, LOCKED POSITION WITH SR X3. CALL LIGHT KEPT WITHIN REACH. WILL CONTINUE TO ASSESS AND MONITOR.
[2018-04-19] MEDS ORDERED: INSU100V11 SQ (13:16)
[2018-04-19] MEDS ORDERED: PANT40VI IV (13:16)
[2018-04-19] MEDS ORDERED: LIDO30AD10 TP (13:16)
[2018-04-19] MEDS ORDERED: NICO-676 TD (13:16)
[2018-04-19] MEDS ORDERED: IPRA3AMP23 IH (13:16)
[2018-04-19] MEDS ORDERED: LABE100T5 (13:16)
[2018-04-19] MEDS ORDERED: HYDR20VI6 IV (13:16)
[2018-04-19] MEDS ORDERED: HALO5SYR IM (13:16)
[2018-04-19] MEDS ORDERED: ONDA4VIA52 IV (13:16)
[2018-04-19] MEDS ORDERED: [UNRECOGNIZED DRUG - CODE] IV (13:16)
[2018-04-19] MEDS ORDERED: LABE5VIA4 IV (13:22)
[2018-04-19] MEDS ORDERED: ONDANSETRON HCL/PF 4 MG/2 ML VIAL IVP PRN (13:30)
[2018-04-19] MEDS ORDERED: Z GUARD REMEDY 2 OZ OINT TP PRN (13:30)
[2018-04-19] MEDS ORDERED: ZOLPIDEM TARTRATE 5 MG TABLET PO PRN (13:30)
[2018-04-19] MEDS ORDERED: MAGNESIUM HYDROXIDE 30 ML UDC PO PRN (13:30)
[2018-04-19] MEDS ORDERED: HYDROCODONE/APAP 5/325MG 1 EACH TABLET PO PRN (13:30)
--- NOTE | 2018-04-19 14:00 | NUR ---
AGRICULTURE PROFESSOR NOTES BILINGUAL NANNY CC REMINDED FOR MED RECON. WILL CONTINUE TO MONITOR.
[2018-04-19] MEDS: PANTOPRAZOLE 40 MG VIAL IV SCH (14:32)
[2018-04-19 14:39] LABS: BASOPHILS % (AUTO) 0.4 % (0.0-2.0); EOSINOPHILS % (AUTO) 0.8 % (0.0-6.0); HEMATOCRIT 30 % (39-51); LYMPHOCYTES % (AUTO) 12.6 % (20.0-44.0); MEAN CORPUSCULAR HGB CONC 33 g/dl (31.0-36.0); MEAN CORPUSCULAR VOLUME 91 fL (80-96); MONOCYTES # (AUTO) 0.5 /CMM (0.1-1.30); MONOCYTES % (AUTO) 6.7 % (2.0-12.0); NEUTROPHILS # (AUTO) 6.3 /CMM (1.8-8.9); NEUTROPHILS % (AUTO) 79.5 % (43.0-81.0); PLATELET COUNT (AUTO) 167 /CMM (150-450); RED BLOOD CELL COUNT(AUTO) 3.31 MIL/uL (4.5-6.0); WHITE BLOOD COUNT (AUTO) 7.9 K/uL (4.3-11.0)
[2018-04-19 14:50] LABS: CALCIUM, SERUM 8.1 mg/dL (8.5-10.1); CARBON DIOXIDE 26 mmol/L (21-32); CHLORIDE 107 mmol/L (98-107); CREATININE 0.9 mg/dL (0.6-1.3); GLUCOSE 104 mg/dL (74-106); POTASSIUM 4.4 mmol/L (3.5-5.1); SODIUM SERUM 141 mmol/L (136-145); UREA NITROGEN, BLOOD 25 mg/dL (7-18)
[2018-04-19 16:00] VITALS: BP 148/67
[2018-04-19] MEDS: JEVITY 1.2 CAL 1,000 ML BOTTLE GT PRN (16:33)
--- NOTE | 2018-04-19 17:53 | NUR ---
CRM SOLUTION ARCHITECT NOTES DIETARY COOK CC MADE AWARE OF CXR RESULT AVAILABLE AT THIS TIME AND REMINDED FOR MED RECON. NO ORDERS NOTED AT THIS TIME. WILL CONTINUE TO MONITOR.
[2018-04-19] MEDS ORDERED: LABETALOL HCL INJ 200 MG/40 ML VIAL IV PRN (18:00)
--- NOTE | 2018-04-19 18:53 | NUR ---
ACADEMIC ADVISOR CLOSING NOTES PT RESTING IN BED, AWAKE. HOB ELEVATED. ON SUPPLEMENTARY OXYGEN AT 6L, SATURATING WELL AT 100%; WITH NO ACUTE RESPIRATORY DISTRESS NOTED. PT ON TELEMONITORING WITH NSR AT 80S WITH OCCASIONAL PACS. ON BALAJI 3 LUMEN PICC LINE, FLUSHED WITH NS, INTACT AND PATENT. ON GOING GT FEEDING JEVITY 1.2 AT 20ML/HR, TOLERATING WITHOUT RESIDUAL. PT WITH FC, URINE OUTPUT OF 250ML. PT KEPT COMFORTABLE, CLEAN AND DRY. Q2H TURN & REPOSITION WAS DONE. BED IN LOWEST, LOCKED POSITION WITH SR X3. WILL ENDORSE TO CYTOLOGY LABORATORY MANAGER NURSE FOR JERRY.
--- NOTE | 2018-04-19 19:25 | NUR ---
CLAMP CARRIER OPERATOR NOTES RECEIVED ON BED SLEEPING ON LEFT SIDE POSITION.ON TRACH TO VENT TV-500,FIO2-40%,PEEP-5,AC-16,SHILEY#8 TOLERATED WELL.CARSON CATH IN PLACE DRAINING YELLOWISH OUT.ON GT FEEDING OF NEPHRO AT 50ML/HR RATE X 16 HOURS.WITH RIGHT UPPER ARM PICC LINE FOR MEDS.REPOSITION Q 2 HOURS.WILL CONTINUE TO MONITOR STATUS.FAMILY MEMBERS AT BEDSIDE.
--- NOTE | 2018-04-19 19:30 | NUR ---
MS RN NOTES RECEIVED ON BED WITH HOB ELEVATED.GT FEEDING OF JEVITY 1.2 AT 20ML/HR RATE IN PROGRESS VIA FEEDING PUMP.WITH RIGHT UPPER ARM PICC LINE FOR MEDS.WITH CARSON CATH IN PLACE DRAINING ALLEN COLORED URINE.ON GEL BED FOR SKIN MANAGEMENT.RT AT BEDSIDE TO SUCTION THRU RIGHT NARES TRUMPET.CALL LIGHT IN REACH,NEEDS ANTICIPATED.
[2018-04-19 20:00] VITALS: BP 148/69
[2018-04-19 20:25] VITALS: BP 148/69
--- NOTE | 2018-04-19 23:00 | NUR ---
PRODUCTION PLANNER SCHEDULER NOTES RT AT BEDSIDE DOING NASAL SUCTION
[2018-04-20] VITALS (53 sets, daily range): BP systolic 50–222; BP diastolic 26–132
--- NOTE | 2018-04-20 02:30 | NUR ---
LUSTER REPAIRER NOTES CONGESTED,NASAL SUCTION INITIATED,RT WAS CALLED FOR BREATHING TREATMENT,GT FEEDING HELD FOR NOW
[2018-04-20] MEDS: hydrALAZINE HCL IV 20 MG VIAL IV PRN ×2 (02:49→14:11)
--- NOTE | 2018-04-20 02:49 | NUR ---
MUSIC COORDINATOR NOTES BP 177/72,PULSE 78,RR-26,TEMPERATURE 98.0,O2 SAT 99%.GIVEN HYDRALAZINE 10MG IV ORDERED FOR SBP>150.
--- NOTE | 2018-04-20 03:00 | NUR ---
SUPERVISOR CONTACT LENS NOTES RT AT BEDSIDE TO ADMINISTER BREATHING TREATMENT ORDERED PRN.
[2018-04-20 03:33] LABS: ABG BASE EXCESS -4.4 mmol/L; ABG OXYGEN SATURATION 95.4 % (92.0-98.5); ABG PCO2 33.9 mmHg (35.0-45.0); ABG PH 7.387 (7.350-7.450); ABG PO2 85.3 mmHg (75.0-100.0); AaDO2 160.9 mmHg; COHb 0.3 % (0.5-1.5); MetHb 0.6 % (0.0-1.5); O2Hb 94.5 % (94.0-97.0); VENT MODE, BG simple o2 mask
--- NOTE | 2018-04-20 06:23 | NUR ---
SEARCH AND RESCUE OFFICER NOTES SLEEPING AROUSABLE TO VERBAL STIMULI.NO SOB,NOTED AUDIBLE RHONCHI,.SUCTION MUCUS NASALLY FREQUENTLY POSSIBLE.CALL LIGHT IN REACH,NEEDS ATTENDED.WILL ENDORSE TO DAY NURSE FOR JERRY.
[2018-04-20 06:27] LABS: BASOPHILS % (AUTO) 0.2 % (0.0-2.0); EOSINOPHILS % (AUTO) 0.6 % (0.0-6.0); HEMATOCRIT 30 % (39-51); LYMPHOCYTES # (AUTO) 0.8 /CMM (0.8-4.8); LYMPHOCYTES % (AUTO) 9.4 % (20.0-44.0); MEAN CORPUSCULAR HGB CONC 33 g/dl (31.0-36.0); MEAN CORPUSCULAR VOLUME 90 fL (80-96); MONOCYTES # (AUTO) 0.6 /CMM (0.1-1.30); MONOCYTES % (AUTO) 6.9 % (2.0-12.0); NEUTROPHILS # (AUTO) 7.4 /CMM (1.8-8.9); NEUTROPHILS % (AUTO) 82.9 % (43.0-81.0); PLATELET COUNT (AUTO) 171 /CMM (150-450); RED BLOOD CELL COUNT(AUTO) 3.35 MIL/uL (4.5-6.0)
[2018-04-20 06:50] LABS: CHOLESTEROL 117 mg/dL (<200); HDL CHOLESTEROL 20 mg/dL (40-60); LDL 85 mg/dL (0-99); TRIGLYCERIDES 98 mg/dL (30-150)
[2018-04-20 06:56] LABS: CALCIUM, SERUM 8.4 mg/dL (8.5-10.1); CARBON DIOXIDE 25 mmol/L (21-32); CHLORIDE 108 mmol/L (98-107); CREATININE 0.8 mg/dL (0.6-1.3); GLUCOSE 93 mg/dL (74-106); MAGNESIUM 1.7 mg/dL (1.8-2.4); PHOSPHORUS 4.1 mg/dL (2.5-4.9); POTASSIUM 4.3 mmol/L (3.5-5.1); SODIUM SERUM 142 mmol/L (136-145); UREA NITROGEN, BLOOD 23 mg/dL (7-18)
--- NOTE | 2018-04-20 07:39 | NUR ---
MILK HAULER OPENING NOTES PT RESTING IN BED, AWAK; A/O X1. HOB ELEVATED. ON SUPPLEMENTARY OXYGEN AT 6L, SATURATING WELL AT 100%; WITHOUT ACUTE RESPIRATORY DISTRESS NOTED. RIGHT NARE TRUMPET NOTED FOR SUCTIONING SECRETIONS. PT ON TELEMONITORING WITH SR AT 90S WITH OCCASIONAL PACS. ON BALAJI 3 LUMEN PICC LINE, FLUSHED WITH NS, INTACT AND PATENT. ON GOING GT FEEDING JEVITY 1.2 AT 40ML/HR AT THIS MOMENT, TOLERATING WITH 10ML RESIDUAL; TO INCREAS FEEDING TO MAX OF 60ML/HR. PT WITH FC WITH CLEAR YELLOW URINE IN THE BAG. BED IN LOWEST, LOCKED POSITION WITH SR X3. WILL CONTINUE PLAN OF CARE.
[2018-04-20] MEDS: NICOTINE PATCH (14MG) 14 MG PATCH.TD24 TD SCH (08:57)
[2018-04-20] MEDS: Magnesium 1GM/D5W 100ML PREMIX 100 ML IV SCH ×2 (09:54→10:55)
[2018-04-20] MEDS: IPRATROPIUM NEB FS 0.5 MG/2.5 ML AMPUL.NEB NEB PRN (11:52)
[2018-04-20] MEDS: ALBUTEROL FS 2.5 MG/0.5 ML VIAL.NEB NEB PRN (11:52)
[2018-04-20] MEDS: ACETYLCYSTEINE 10% SOLN 400 MG/4 ML VIAL NEB SCH ×3 (11:52→23:23)
[2018-04-20] MEDS ORDERED: FUROSEMIDE 20 MG/2 ML VIAL IV ONE ×2 (12:00→12:30)
--- NOTE | 2018-04-20 12:17 | NUR ---
WOUND CARE CONSULT: PT PRESENTS WITH BLANCHABLE REDNESS TO BUTTOCKS, PURPLE DISCOLORATION TO RT ANTERIOR ANKLE, FOOT AREA AND SOME BRUISING TO ARMS, SCARS TO BILATERAL SIDES OF ABDOMEN (PREVIOIUS CHEST TUBES), ALL PRESENT ON ADMISSION. RECOMMENDATIONS MADE FOR SKIN PROTECTION. DISCUSSED WITH NURSING STAFF. CURRENT JANINE SCORE IS 14. WILL SEE PRN. RADER IN AGREEMENT WITH PLAN OF CARE. Addendum: 04/20/18 at 1218 by ROBERT MENDOZA WNDNU Amended: Links added.
--- NOTE | 2018-04-20 12:40 | NUR ---
BREAD WRAPPER OPERATOR NOTES PT TRANSFERRED TO ICU ROOM 258 VIA BED, WITH ACLS TRANSPORT PROTOCOL. PT IS LETHARGIC. CURRENTLY ON NONREBREATHER MASK PLACED BY RT IN THE UNIT. THOROUGH REPORT GIVEN TO ICU NURSE/MILAGRO VIA PHONE AND BEDSIDE.
--- NOTE | 2018-04-20 12:49 | NUR ---
CLEVE TIRADO FOR SEDATION WHILE INTUBATED.
--- NOTE | 2018-04-20 12:56 | NUR ---
RT RECD PT FROM [facility] ON NON REBREATHER TRANSFERRED TO ICU INTUBATED FOR AIRWAY PROTECTION BY DR BARAJAS ETT 7.5 23 CM AT LIP SECURED PLACED ON MECH VENT YVONNE ORDERED SETTINGS AC 12 500 +5 100% SX THICK LARGE AMOUNT OF YELLOW WHITE SECRETIONS. WILL CONT TO MONITOR Addendum: 04/20/18 at 1259 by GOLD ELLER RT Amended: Links added.
[2018-04-20] MEDS ORDERED: PROPOFOL 100 ML IV PRN (13:00)
--- NOTE | 2018-04-20 13:00 | NUR ---
ICU/RN: S/P intubation by Dr Laughlin; moderate amount of thick lugo secretions suctioned orally. Dr Cunha at beside discussing POC with ER . Ana Jackson at bedside with orders for Diprivan for comfort and sedation. Informed of pt temp 102.9F, cooling measures initiated, pancultures ordered by SOCIAL SCIENCE RESEARCH ASSISTANT. Will administer tylenol suppository as ordered. BALAJI PICC flushed, no blood return. FC draining well. Will cont to monitor pt.
[2018-04-20 13:05] LABS: ABG OXYGEN SATURATION 82.7 % (92.0-98.5); ABG PCO2 36.8 mmHg (35.0-45.0); ABG PH 7.401 (7.350-7.450); ABG PO2 49.4 mmHg (75.0-100.0); AaDO2 337.9 mmHg; COHb 0.3 % (0.5-1.5); MetHb 0.8 % (0.0-1.5); O2Hb 81.8 % (94.0-97.0); SITE, ABG Right Radial; VENT MODE, BG FACE MASK 10L O2
[2018-04-20] MEDS ORDERED: ACETAMINOPHEN 650 MG/SUPP.RECT RC PRN (13:30)
[2018-04-20] MEDS: PANTOPRAZOLE 40 MG VIAL IV SCH (14:14)
[2018-04-20] MEDS ORDERED: ROCURONIUM BROMIDE 50 MG/5 ML IV ONE (14:22)
[2018-04-20] MEDS ORDERED: ETOMIDATE 2 MG/ML VIAL IV ONE (14:22)
[2018-04-20 14:33] LABS: ABG OXYGEN SATURATION 98.7 % (92.0-98.5); ABG PCO2 44.2 mmHg (35.0-45.0); ABG PH 7.377 (7.350-7.450); AaDO2 493.8 mmHg; COHb 0.1 % (0.5-1.5); MetHb 0.8 % (0.0-1.5); O2Hb 97.8 % (94.0-97.0); PEEP,BG 5 cm H2O; SITE, ABG Right Radial; VENT MODE, BG AC 12 500 100% +5; VT, ABG 500 mL
[2018-04-20] MEDS: METRONIDAZOLE 500MG/ NS 100ML 500 MG in PREMIX 1 EA IV SCH ×2 (14:33→20:58)
[2018-04-20] MEDS: FUROSEMIDE 40 MG/4 ML VIAL IV SCH ×2 (14:33→18:34)
[2018-04-20] MEDS ORDERED: CT SWABBABLE VALVE TRANS SET 1 EA INFUS.SET MC ONE (14:51)
[2018-04-20] MEDS ORDERED: IOHEXOL-350 100 ML VIAL IV ONE (14:51)
[2018-04-20] MEDS ORDERED: IV NS 0.9% 250 ML IV ONE (14:51)
--- NOTE | 2018-04-20 15:45 | NUR ---
ICU/RN: ABG drawn; Dr Alarcon notified, per pt ok to radiology for CT head, CTA to r/o PE.
[2018-04-20] MEDS ORDERED: NOREPINEPHRINE 4 MG/4 ML AMPUL IV ONE (16:15)
--- NOTE | 2018-04-20 16:15 | NUR ---
ICU/RN: Back from radiology. Care endorsed to Riya CUEVAS for JERRY.
[2018-04-20] MEDS: NOREPINEPHRINE 16 MG in IV D5W 500 ML IV PRN (16:24)
--- NOTE | 2018-04-20 16:36 | NUR ---
ICU/RN: Dr Alarcon and Ana Jackson NP notified of CTA Pulm angio results. Orders received from Dr Alarcon, noted and carried out. Primary RN updated.
--- NOTE | 2018-04-20 16:53 | NUR ---
PROPERTIES SUPERVISOR. RECEIVED THE PT REST ON THE BED. ORALLY INTUBATED. RESPONDING DEEP PAIN. GAG RE FLEX PRESENT. DIPRIVAN 5MCG/KG/MIN, RABIA WRIST RESTRAINT . FC PATENT. GT INTACT. CLAMPED. RT UPPER ARM PICC LINE TKO RUNNING. ETT 7.5,LIP 22, AC 14, TV 500,FIO2 60%, PEEP 5. SAT 98%. NO ACUTE DISTRESS NOTED. TEMP 101. COOLIUING BLANKET ON. WILL CONTINUE TO MONITOR.
[2018-04-20 16:57] LABS: ALBUMIN 1.8 g/dL (3.4-5.0)
[2018-04-20] MEDS ORDERED: ACETYLCYSTEINE 10% SOLN 400 MG/4 ML VIAL NEB SCH (17:00)
--- NOTE | 2018-04-20 17:00 | NUR ---
NEEDLE PROCESS FELT GOODS SUPERVISOR. DIPRIVAN STOPPED. BP 77/50.PT IS OBTUNDED. RABIA WRIST RESTRAINT REMOVED.LEVOPHED STARTED.
[2018-04-20] MEDS: CEFTRIAXONE 1 G in IV D5W 50 ML IV SCH (17:14)
[2018-04-21] VITALS (92 sets, daily range): BP systolic 76–144; BP diastolic 40–80
--- NOTE | 2018-04-21 02:46 | NUR ---
PT RCVD ORALLY INTUBATED 7.5 AND 23CM @LIP. SX DONE. ETT PATENT AND SECURE. AMBU BAG AT BEDSIDE. VENT PLUGGED INTO RED OUTLET. ALARMS ARE ON AND AUDIBLE. WILL CONTINUE TO MONITOR. Addendum: 04/21/18 at 0246 by MAKSIM WHATLEY RT Amended: Links added. Addendum: 04/21/18 at 0252 by MAKSIM WHATLEY RT CORRECT NOTE PT RCVD ORALLY INTUBATED 7.5 AND 23CM @LIP ON MECHANICAL VENT WITH CHARTED SETTINGS. SX DONE. ETT PATENT AND SECURE. AMBU BAG AT BEDSIDE. VENT PLUGGED INTO RED OUTLET. ALARMS ARE ON AND AUDIBLE. WILL CONTINUE TO MONITOR.
--- NOTE | 2018-04-21 03:55 | NUR ---
LEAF SUCKER OPERATOR, AM CARE, ORAL , BED BATH GIVEN. LINEN CHANGED. REMAINING SAME VENT SETTINGS TOLERATED WELL. SAT 98%NO ACUTE DISTRESS NOTED. EXTERNAL GRINDER TOOL SHOWING NSR, IV RT UPPER ARM PICC LINE. LEVOPHED 7MG/MIN, RABIA SOFT WRIST RESTRAINT CHECKED AND RELEASED, NO INJURY OR REDNESS NOTED,FC PATENT. URINE DRAINING, . AFEBRILE. WILL CONTINUTBD
[2018-04-21 04:37] LABS: BASOPHILS % (AUTO) 0.2 % (0.0-2.0); EOSINOPHILS % (AUTO) 0.3 % (0.0-6.0); HEMATOCRIT 29 % (39-51); HEMOGLOBIN 9.6 g/dL (13.5-17.5); LYMPHOCYTES # (AUTO) 1.9 /CMM (0.8-4.8); LYMPHOCYTES % (AUTO) 12.4 % (20.0-44.0); MEAN CORPUSCULAR HGB CONC 33 g/dl (31.0-36.0); MEAN CORPUSCULAR VOLUME 90 fL (80-96); MONOCYTES # (AUTO) 1.1 /CMM (0.1-1.30); MONOCYTES % (AUTO) 7.1 % (2.0-12.0); NEUTROPHILS # (AUTO) 12.2 /CMM (1.8-8.9); PLATELET COUNT (AUTO) 200 /CMM (150-450); RED BLOOD CELL COUNT(AUTO) 3.24 MIL/uL (4.5-6.0); WHITE BLOOD COUNT (AUTO) 15.3 K/uL (4.3-11.0)
[2018-04-21 04:59] LABS: CALCIUM, SERUM 8.4 mg/dL (8.5-10.1); CARBON DIOXIDE 29 mmol/L (21-32); CHLORIDE 107 mmol/L (98-107); CREATININE 1.2 mg/dL (0.6-1.3); GLUCOSE 121 mg/dL (74-106); MAGNESIUM 1.8 mg/dL (1.8-2.4); POTASSIUM 3.6 mmol/L (3.5-5.1); SODIUM SERUM 142 mmol/L (136-145); UREA NITROGEN, BLOOD 24 mg/dL (7-18)
[2018-04-21] MEDS: METRONIDAZOLE 500MG/ NS 100ML 500 MG in PREMIX 1 EA IV SCH ×3 (05:09→20:37)
[2018-04-21 05:14] LABS: PHOSPHORUS 4.6 mg/dL (2.5-4.9)
--- NOTE | 2018-04-21 07:10 | NUR ---
RN INITIAL NOTES: Rec'd pt on bed, sleeping but easily arousable by verbal/tactile stimuli. On MV via ETT, sating at 100%. On telemonitor, SR. Has GT, clamped at this time, flushing well, no residual upon checking. Has BALAJI PICC line w/ Levo Drip x 5 mcg/min infusing well, no s/sx of infection/infiltration noted. Has FC Draining to BSB. Has B soft wrist restraints for pt's safety. Safety precaution in place w/ bed in locked & lowest pos. Call light w/in reach but unable to utilize at this time. Will cont to monitor & attend pt needs.
[2018-04-21] MEDS: ALBUTEROL FS 2.5 MG/0.5 ML VIAL.NEB NEB PRN ×3 (07:27→23:05)
[2018-04-21] MEDS: IPRATROPIUM NEB FS 0.5 MG/2.5 ML AMPUL.NEB NEB PRN (07:27)
[2018-04-21] MEDS: ACETYLCYSTEINE 10% SOLN 400 MG/4 ML VIAL NEB SCH ×3 (07:27→23:05)
--- NOTE | 2018-04-21 07:27 | NUR ---
RT Pt received with a 7.5 ETT secured at 23cm at the lip line. Pt is awake and alert. Vent alarms are set and audible with BVM by bedside. COLLECTION TELLER cuff pressure noted. Vent is plugged into red outlet. Sx'd small thin clear/white secretions. No respiratory distress noted at this time, will continue to monitor. Addendum: 04/21/18 at 0856 by KIRAN RIBEIRO RT Amended: Links added.
[2018-04-21] MEDS: IV NS 0.9% 1,000 ML IV PRN ×2 (08:06→18:22)
[2018-04-21] MEDS: NICOTINE PATCH (14MG) 14 MG PATCH.TD24 TD SCH (08:38)
[2018-04-21 08:42] LABS: ABG OXYGEN SATURATION 97.4 % (92.0-98.5); ABG PCO2 37.2 mmHg (35.0-45.0); ABG PH 7.474 (7.350-7.450); ABG PO2 105.5 mmHg (75.0-100.0); AaDO2 136.9 mmHg; COHb 0.3 % (0.5-1.5); MetHb 0.3 % (0.0-1.5); O2Hb 96.8 % (94.0-97.0); PEEP,BG 5 cm H2O; SITE, ABG Right Radial; VT, ABG 500 mL
--- NOTE | 2018-04-21 09:00 | NUR ---
Pt seen & examined by Dr. Alarcon & updated about pt condition. 0920H RT made aware re: Dr. Alarcon's order to advance ETT by 2cm.
--- NOTE | 2018-04-21 09:30 | NUR ---
RT PT ETT ADVANCED FROM 23CM TO 25CM, PER DR. SANTIAGO ORDERS TO ADVANCE 2CM. FIRE WARDEN CUFF PRESSURE NOTED. EQUAL BILATERAL BREATHE SOUNDS AND CHEST RISE NOTED. MASON FRANKS NOTIFIED AND AWARE. Addendum: 04/21/18 at 0957 by KIRAN RIBEIRO RT Amended: Links added.
[2018-04-21] MEDS: PANTOPRAZOLE 40 MG VIAL IV SCH (13:15)
[2018-04-21] MEDS: CEFTRIAXONE 1 G in IV D5W 50 ML IV SCH (13:15)
[2018-04-21] MEDS ORDERED: NOREPINEPHRINE 8 MG in IV D5W 500 ML IV PRN (14:00)
--- NOTE | 2018-04-21 14:03 | NUR ---
Per Dr. Aleks gutierrez to restart GTF.
[2018-04-21] MEDS: JEVITY 1.2 CAL 1,000 ML BOTTLE GT PRN (15:09)
[2018-04-21] MEDS: NOREPINEPHRINE 16 MG in IV D5W 500 ML IV PRN (16:46)
--- NOTE | 2018-04-21 18:34 | NUR ---
RN CLOSING NOTES: No significant changes noted w/in shift. Pt remains awake, not in any distress. Tolerated current MV settings via ETT. On telemonitor, still SR. Started GTF as ordered - Jevity 1.2 x 20 cc/hr. Dietary consult ordered for recalculation of calorie need intake. BALAJI PICC line w/ NS x 100 cc/hr infusing well, no s/sx of infection/infiltration noted. FC Draining to BSB. B soft wrist restraints kept for pt's safety. Safety precaution kept in place at all times w/ bed in locked & lowest pos. Call light w/in reach. Will endorse to PM RN for JERRY.
--- NOTE | 2018-04-21 19:20 | NUR ---
RN NOTES RECEIVED PT EYES OPEN TRACKING EYES. CALM AND COOPERATIVE. WITH ETT 7.5, 23 CM AT LIP. CONNECTED TO VENT SETTING AC 12, TV 500 FIO2 30% PEEP 5 TOLERATED WELL. SUCTIONED WITH SMALL TO MOD. AMT OF THICK YELLOWISH SECRETION. NO SOB. SATURATION 100%. NSR ON TELE MONITOR. PATIENT HAS GTF JEVITY 1.2 @ 20 ML.HR INTACT, PATENCY CHECKED. NO RESIDUAL. WITH IV SITE ON BALAJI PICC LINE RUNNING WITH NS @ 100 ML.HR OFF FROM LEVOPHED AT THIS TIME. VSS. RADIAL AND POPLITEAL PULSES STRONG. OFFLOADED EXT WITH PILLOWS TURNED AND REPOSITIONED FOR COMFORTABLE AND SKIN SAFETY. KEPT PT CLEAN AND DRY. CONTINUE TO MONITOR. Addendum: 04/21/18 at 2017 by SUZANNE KERN RN ETT 7.5, 25 CM @ LIP
[2018-04-22] VITALS (48 sets, daily range): BP systolic 97–171; BP diastolic 48–97
[2018-04-22 04:42] LABS: BASOPHILS % (AUTO) 0.1 % (0.0-2.0); EOSINOPHILS % (AUTO) 1.2 % (0.0-6.0); HEMATOCRIT 26 % (39-51); HEMOGLOBIN 8.8 g/dL (13.5-17.5); LYMPHOCYTES # (AUTO) 1.3 /CMM (0.8-4.8); LYMPHOCYTES % (AUTO) 15.3 % (20.0-44.0); MEAN CORPUSCULAR HGB CONC 33 g/dl (31.0-36.0); MEAN CORPUSCULAR VOLUME 91 fL (80-96); MONOCYTES # (AUTO) 0.5 /CMM (0.1-1.30); MONOCYTES % (AUTO) 5.8 % (2.0-12.0); NEUTROPHILS # (AUTO) 6.7 /CMM (1.8-8.9); NEUTROPHILS % (AUTO) 77.6 % (43.0-81.0); PLATELET COUNT (AUTO) 142 /CMM (150-450); RED BLOOD CELL COUNT(AUTO) 2.89 MIL/uL (4.5-6.0); WHITE BLOOD COUNT (AUTO) 8.7 K/uL (4.3-11.0)
[2018-04-22 04:53] LABS: ALANINE AMINOTRANSFERASE 31 U/L (12-78); ALBUMIN 1.6 g/dL (3.4-5.0); ALKALINE PHOSPHATASE 115 U/L (46-116); ASPARTATE AMINOTRANSFERASE 20 U/L (15-37); BILIRUBIN,TOTAL 0.3 mg/dL (0.2-1.0); CALCIUM, SERUM 8.1 mg/dL (8.5-10.1); CARBON DIOXIDE 27 mmol/L (21-32); CHLORIDE 111 mmol/L (98-107); CREATININE 1.1 mg/dL (0.6-1.3); GLUCOSE 92 mg/dL (74-106); MAGNESIUM 1.8 mg/dL (1.8-2.4); PHOSPHORUS 3.7 mg/dL (2.5-4.9); POTASSIUM 3.2 mmol/L (3.5-5.1); SODIUM SERUM 147 mmol/L (136-145); TOTAL PROTEIN, SERUM 5.2 g/dL (6.4-8.2); UREA NITROGEN, BLOOD 29 mg/dL (7-18)
[2018-04-22] MEDS: METRONIDAZOLE 500MG/ NS 100ML 500 MG in PREMIX 1 EA IV SCH ×3 (05:24→20:59)
[2018-04-22] MEDS: IV NS 0.9% 1,000 ML IV PRN (05:42)
--- NOTE | 2018-04-22 07:05 | NUR ---
RN NOTES PATIENT ASLEEP WELL ON BED. MORE AWAKE AND RESPONSIVE COMMUNICATE TO THE NURSE. NO PRESSOR NO SEDATION. CALM AND COOPERATIVE. ETT AND VENT SETTING TOLERATED WELL. AFEBRILE. CONTINUE WITH IVF NS @ 100 ML/HR AND GTF @ 20 ML.HR TOLERATED WELL. WITH ZERO RESIDUAL. HOB KEPT ELEVATED , F/C DRAINED WITH ALLEN COLOR URINE. NO SIGNIFICANT JERRY TROUGHOUT THE SHIFT. T/R Q2H KEPT PT CLEAN AND DRY. ENDORSED CONTINUITY OF CARE TO AM NURSE.
--- NOTE | 2018-04-22 07:15 | NUR ---
RN INITIAL NOTES: Rec'd pt on bed, awake, A/O x1. On MV via ETT, sating at 100%. On telemonitor, SR. Has GT, on Jevity 1.2 x 20 cc/hr infusing well, no residual upon checking. Has BALAJI PICC line w/ NS x 100cc/hr infusing well, no s/sx of infection/infiltration noted. Has FC Draining to BSB. Has B soft wrist restraints for pt's safety. Safety precaution in place w/ bed in locked & lowest pos. Call light w/in reach but unable to utilize at this time. Will cont to monitor & attend pt needs.
--- NOTE | 2018-04-22 07:30 | NUR ---
RT PER DR SANTIAGO PATIENT PLACED ON SIMV MODE. ALARMS CHECKED + AUDIBLE. NO SOB NOTED. AMBU BAG AT HOB. Addendum: 04/22/18 at 1238 by ELLIOTT FLYNN RT Amended: Links added.
[2018-04-22] MEDS: ACETYLCYSTEINE 10% SOLN 400 MG/4 ML VIAL NEB SCH ×3 (08:12→23:48)
--- NOTE | 2018-04-22 08:45 | NUR ---
Pt seen & examined by Dr. Fink & discussed POC.
[2018-04-22] MEDS: NITROGLYCERIN 30 GM TUBE TP SCH ×2 (08:55→21:50)
[2018-04-22] MEDS: NICOTINE PATCH (14MG) 14 MG PATCH.TD24 TD SCH (08:55)
--- NOTE | 2018-04-22 09:01 | NUR ---
Pt seen & examined by Dr. Alarcon. ABG reviewed.
[2018-04-22] MEDS: POTASSIUM CHLORIDE 20 MEQ POWDER PACKET NG SCH ×2 (09:50→12:15)
[2018-04-22] MEDS ORDERED: DC PROPOFOL WHEN EXTUBATED XX PRN (10:00)
[2018-04-22] MEDS: PANTOPRAZOLE 40 MG VIAL IV SCH (12:39)
[2018-04-22] MEDS: CEFTRIAXONE 1 G in IV D5W 50 ML IV SCH (13:15)
[2018-04-22] MEDS: ACETAMINOPHEN 325 MG TABLET PO PRN (13:43)
--- NOTE | 2018-04-22 16:00 | NUR ---
Pt noted hematuria on FC. Dr. Alarcon made aware w/ orders to hold Lovenox for now. Dr. Mckeon & Dr. Alarcon also informed. Addendum: 04/22/18 at 1726 by GOLDEN CARVER RN CORRECTION: PLS DISREGARD ABOVE NOTES. NOT INTENDED FOR THIS PATIENT.
--- NOTE | 2018-04-22 16:09 | NUR ---
S/P Extubation as ordered c/o RT. Placed on NC at 4lpm. Pt tolerated well the procedure.
[2018-04-22] MEDS: JEVITY 1.2 CAL 1,000 ML BOTTLE GT PRN (16:45)
--- NOTE | 2018-04-22 18:25 | NUR ---
RN CLOSING NOTES: Pt tolerating s/p extubation w/ NC at 4lpm but still noted productive cough. Pt remains awake, not in any distress. On telemonitor, still SR. Increased GTF Jevity 1.2 x 60 cc/hr (goal rate), no residual noted w/in shift. BALAJI PICC line w/ NS x 40 cc/hr infusing well, no s/sx of infection/infiltration noted. FC Draining to BSB. B soft wrist restraints kept for pt's safety. Safety precaution kept in place at all times w/ bed in locked & lowest pos. Call light w/in reach. Will endorse to PM RN for JERRY.
--- NOTE | 2018-04-22 19:30 | NUR ---
INSTALLATION & MAINTENANCE EXECUTIVE: RECEIVED PT ALERT TO SELF. ABLE TO NOD HEAD WHEN ASKED AT TIMES. ON 4L 02 VIA NC WT NO ACUTE DISTRESS. ORAL SUCTIONING RENDERED WT MODERATE AMT. OF WHITE THIN SECRETIONS. HOB ON HIGH FOWLERS. SR ON PICK AND SHOVEL WORKER. GT RUNNING JEVITY 1.2 AT 60ML/HR WT 10CC RESIDUAL. BALAJI PICC RUNNING NS AT 40ML/HR. F/C INTACT AND PATENT DRAINING TEA COLORED URINE TO GRAVITY. BILAT. SOFT WRIST RESTRAINTS IN PLACE FOR EPISODES OF TRYING TO REMOVE TUBINGS. SKIN AND CIRCULATION WNL. SAFETY PRECAUTION NOTED. WILL CONTINUE TO MONITOR.
[2018-04-22] MEDS: ALBUTEROL FS 2.5 MG/0.5 ML VIAL.NEB NEB PRN ×2 (19:59→23:48)
[2018-04-22] MEDS: IPRATROPIUM NEB FS 0.5 MG/2.5 ML AMPUL.NEB NEB PRN ×2 (19:59→23:48)
--- NOTE | 2018-04-22 21:30 | NUR ---
SPECIAL NEEDS CHILD CAREGIVER: OBTAINED ORDER FROM DR. SCOTT TO PLACE NASAL TRUMPET FOR DEEP SUCTION PT NEEDS FREQUENT DEEP SUCTIONING. RT PLACED MOHAWK 32 NASAL TRUMPET ON RT. NARE AND TOLERATED WELL. DEEP SUCTIONING PERFORMED WT LARGE AMT. OF WHITE THIN SECRETIONS. BED POSITION ON HIGH FOWLERS. WILL CONTINUE TO MONITOR. FAMILY AT BEDSIDE.
[2018-04-23] VITALS (27 sets, daily range): BP systolic 112–171; BP diastolic 41–96
[2018-04-23] MEDS ORDERED: hydrALAZINE HCL IV 20 MG VIAL ONE (03:21)
[2018-04-23 04:38] LABS: BASOPHILS % (AUTO) 0.4 % (0.0-2.0); EOSINOPHILS % (AUTO) 0.9 % (0.0-6.0); HEMATOCRIT 26 % (39-51); HEMOGLOBIN 8.6 g/dL (13.5-17.5); LYMPHOCYTES % (AUTO) 12.6 % (20.0-44.0); MEAN CORPUSCULAR HGB CONC 33 g/dl (31.0-36.0); MEAN CORPUSCULAR VOLUME 90 fL (80-96); MONOCYTES # (AUTO) 0.5 /CMM (0.1-1.30); MONOCYTES % (AUTO) 5.9 % (2.0-12.0); NEUTROPHILS # (AUTO) 6.2 /CMM (1.8-8.9); NEUTROPHILS % (AUTO) 80.2 % (43.0-81.0); PLATELET COUNT (AUTO) 163 /CMM (150-450); RED BLOOD CELL COUNT(AUTO) 2.87 MIL/uL (4.5-6.0); WHITE BLOOD COUNT (AUTO) 7.7 K/uL (4.3-11.0)
[2018-04-23] MEDS: METRONIDAZOLE 500MG/ NS 100ML 500 MG in PREMIX 1 EA IV SCH ×2 (04:41→12:26)
[2018-04-23 04:44] LABS: CALCIUM, SERUM 8.2 mg/dL (8.5-10.1); CARBON DIOXIDE 28 mmol/L (21-32); CHLORIDE 112 mmol/L (98-107); CREATININE 1.1 mg/dL (0.6-1.3); GLUCOSE 130 mg/dL (74-106); MAGNESIUM 1.7 mg/dL (1.8-2.4); PHOSPHORUS 2.6 mg/dL (2.5-4.9); POTASSIUM 3.7 mmol/L (3.5-5.1); SODIUM SERUM 147 mmol/L (136-145); UREA NITROGEN, BLOOD 27 mg/dL (7-18)
--- NOTE | 2018-04-23 04:45 | NUR ---
CRECHE ATTENDANT: PT'S SBP WAS TRENDING HIGH SINCE 0200. PRIMARY NURSE WENT TO [facility] TO GET HYDRALAZINE BUT NOTHING WAS ON STOCK EVEN IF [facility] MACHINE SAID THERE WAS ONE VIAL LEFT. CHARGE NURSE WAS ASKED TO GET ONE FROM OTHER [facility]. HOWEVER, WILL CONTINUE TO HOLD MED BP IS LESS THAN 150 AT THIS TIME AND WILL GIVE NEEDED TO BE RETURNED TO PHARMACY.
[2018-04-23] MEDS: hydrALAZINE HCL IV 20 MG VIAL IV PRN (06:19)
--- NOTE | 2018-04-23 06:20 | NUR ---
AUTOMOBILE ASSEMBLY SUPERVISOR: GIVEN APRESOLINE FOR SBP ABOVE 150. WILL CONTINUE TO MONITOR.
--- NOTE | 2018-04-23 06:48 | NUR ---
LINK WIRE FABRIC MACHINE OPERATOR: REASSESSED AFTER GIVEN APRESOLINE WT GOOD EFFECT. SBP LESS THAN 150 AT THIS TIME. NO SIGNIFICANT JERRY DURING THE SHIFT. FREQUENT DEEP SUCTION RENDERED FOR MODERATE AMT. OF BARRETT THIN SECRETIONS AND TOLERATED FAIRLY. ALL NEEDS MET. WILL ENDORSE TO DAY SHIFT FOR CONTINUITY OF CARE.
--- NOTE | 2018-04-23 07:05 | NUR ---
SUPERVISOR IN CIRCUIT TESTING INITIAL NOTES RECEIVED PT FROM NIGHTSHIFT RN IN STABLE CONDITION. PT ALERT TO TACTILE AND VERBAL STIMULI. NO SOB OR ACUTE SIGNS OF DISTRESS NOTED. BREATHING IS EVEN AND UNLABORED. PT SATING WELL ON 4L VIA NC. NASAL TRUMPET NOTED TO PT'S RIGHT NOSTRIL FOR DEEP SUCTIONING. PT CURRENTLY SR ON THE TELE MONITOR WITH A HR OF 70. CARSON CATHETER NOTED WITH 50CC OF TEA CHLORPED URINE. CATHETER NOTED TO BE C/D/I. GTUBE NOTED TO BE PATENT AND INTACT. PT TOLERATING TUBE FEEDING AT ORDERED RATE WELL. 5 CC OF RESIDUALS ASPIRATED. PLACEMENT VERIFIED VIA AUSCULTATION. RIGHT UPPER ARM PICC LINE NOTED TO BE PATENT AND INTACT. NO REDNESS OR SIGNS OF INFILTRATION NOTED. BILATERAL SOFT WRIST RESTRAINTS NOTED. GOOD CAP REFILL AND PULSES ASSESSED IN PT'S PERIPHERAL EXTREMITIES. BED IN LOW LOCKED POSITION, SIDE RAILS UP X2, CALL LIGHT WITHIN REACH. WILL CONTINUE TO MONITOR
[2018-04-23] MEDS: ACETYLCYSTEINE 10% SOLN 400 MG/4 ML VIAL NEB SCH ×2 (07:39→15:34)
[2018-04-23] MEDS: Magnesium 1GM/D5W 100ML PREMIX 100 ML IV SCH ×2 (07:47→08:46)
[2018-04-23] MEDS: NICOTINE PATCH (14MG) 14 MG PATCH.TD24 TD SCH (08:34)
[2018-04-23] MEDS: NITROGLYCERIN 30 GM TUBE TP SCH ×2 (08:34→21:17)
[2018-04-23] MEDS: ACETAMINOPHEN 325 MG TABLET PO PRN (08:34)
[2018-04-23] MEDS: PANTOPRAZOLE 40 MG/PACK PACK NG SCH (08:34)
--- NOTE | 2018-04-23 08:53 | NUR ---
ASBESTOS WORKER NOTES: TEMPERATURE REGULATION PT NOTED TO HAVE A TEMP OF 99.9. ACETAMINOPHEN ADMINISTERED VIA GTUBE. COOLING MEASURES INITIATED. TEMP REASSESSED AND IS NOTE 99.0. WILL CONTINUE COOLING MEASURES AN REASSESSMENTS
--- NOTE | 2018-04-23 10:44 | NUR ---
CRAFT WORKER NOTES: MD ROUNDING (DR. GARCIA) DR. GARCIA AT BEDSIDE AND UPDATED ON PT'S CONDITION. PT' STABLE FOR TRANSFER TO [facility] PER
[2018-04-23] MEDS: JEVITY 1.2 CAL 1,000 ML BOTTLE GT PRN (11:14)
[2018-04-23] MEDS: CEFTRIAXONE 1 G in IV D5W 50 ML IV SCH (13:46)
--- NOTE | 2018-04-23 19:10 | NUR ---
MAIL PROCESSING MACHINE OPERATORORGAN PIPE FINISHER NOTES PT TRANSFERRED TO [facility] IN STABLE CONDITION VIA ACLS TRANSPORT. VSS. ALL NEEDS ANTICIPATED FOR AND MET DURING SHIFT, DUE MEDS GIVEN. ENDORSED TO EILEEN KEANE FOR JERRY
--- NOTE | 2018-04-23 20:42 | NUR ---
NITISH/PLANER TAILER PT SOUNDED CONGESTED, PER DR SANTIAGO PT REQUIRED FREQUENT SUCTIONING, DID THIS WITH DAUGHTER AT BEDSIDE. GOT 100ML OF YELLOWISH,THICK SECTIONINGS FROM NG. WILL MONITOR THIS PT'S SATURATION.
[2018-04-23] MEDS: METRONIDAZOLE 500 MG TABLET GT SCH (21:17)
[2018-04-23] MEDS ORDERED: NITROGLYCERIN PACKET 1 GM PACKET ONE (21:24)
--- NOTE | 2018-04-23 22:10 | NUR ---
NITISH/FRENCH PASTRY COOK PT WAS SUCTIONED VIA N/G TRUMPET. YELLOWISH THICK SPUTUM WAS TAKEN OUT ABOUT 100ML. WILL CONTINUE TO MONITOR THIS PT'S SATURATION AND CONGESTION. PT WAS TURNED AND REPOSITIONED FOR COMFORT AND CARE.
--- NOTE | 2018-04-23 22:45 | NUR ---
NITISH/WATER TREATMENT SPECIALIST PT'S DAUGHTER CALLED ASKED HOW PT WAS DOING, GAVE AN UPDATE. SAID SHE'LL BE IN TOMORROW.
[2018-04-24] VITALS (7 sets, daily range): BP systolic 70–163; BP diastolic 35–79
[2018-04-24] MEDS: ACETYLCYSTEINE 10% SOLN 400 MG/4 ML VIAL NEB SCH ×3 (00:10→15:24)
[2018-04-24] MEDS: ALBUTEROL FS 2.5 MG/0.5 ML VIAL.NEB NEB PRN ×3 (00:10→15:24)
[2018-04-24] MEDS: hydrALAZINE HCL IV 20 MG VIAL IV PRN (00:51)
--- NOTE | 2018-04-24 00:57 | NUR ---
NITISH/AUTOMOTIVE PARTS ADVISOR PT'S MIDNIGHT BLOOD PRESSURE WAS ELEVATED TO 163/71, PT WAS GIVEN PRN DOSE OF HYDRALAZINE 10MG IVP FOR THIS BY RN. WILL CONTINUE TO MONITOR THIS PT'S BP. PT WAS TURNED AND REPOSITIONED FOR COMFORT AND CARE.
--- NOTE | 2018-04-24 02:30 | NUR ---
NITISH/LITERARY AGENT PT WAS SUCTIONED VIA N/G TRUMPET. YELLOWISH THICK SPUTUM WAS TAKEN OUT ABOUT 125ML. WILL CONTINUE TO MONITOR THIS PT'S SATURATION AND CONGESTION. PT WAS TURNED AND REPOSITIONED FOR COMFORT AND CARE.
--- NOTE | 2018-04-24 04:35 | NUR ---
NITISH/TOBACCO SAMPLER PT WAS SUCTIONED VIA N/G TRUMPET. YELLOWISH THICK SPUTUM WAS TAKEN OUT ABOUT 75ML. WILL CONTINUE TO MONITOR THIS PT'S SATURATION AND CONGESTION. PT WAS TURNED AND REPOSITIONED FOR COMFORT AND CARE.
[2018-04-24] MEDS: METRONIDAZOLE 500 MG TABLET GT SCH ×3 (04:57→21:00)
[2018-04-24] MEDS: JEVITY 1.2 CAL 1,000 ML BOTTLE GT PRN ×2 (05:00→21:54)
--- NOTE | 2018-04-24 07:05 | NUR ---
RN NOTES RECEIVED ON BED, ALERT TO TACTILE AND VERBAL STIMULI.ON 4 L O2 N/C , NO SOB NOTED, RESPIRATION EVEN AND UNLABORED, NASAL TRUMPET NOTED TO PT'S RIGHT NOSTRIL FOR DEEP SUCTIONING. ON TELE SR WITH PAC'S HR IN 80'S , CARSON CATHETER DRAINING TO GRAVITY WITH TEA COLOR URINE. JEVITY AT 60CC/HR RUNNING , NO RESIDUAL NOTED, RIGHT UPPER ARM PICC LINE SITE CLEAN, DRY AND INTACT, BILATERAL SOFT WRIST RESTRAINTS ON FOR PT SAFETY, SR UP x3, CALL LIGHT WITHIN EASY REACH, BED LOCKED AND IN LOWEST POSITION, CONTINUE TO MONITOR .
[2018-04-24 07:13] LABS: BASOPHILS % (AUTO) 0.4 % (0.0-2.0); EOSINOPHILS % (AUTO) 1.6 % (0.0-6.0); HEMATOCRIT 28 % (39-51); HEMOGLOBIN 9.4 g/dL (13.5-17.5); LYMPHOCYTES # (AUTO) 1.5 /CMM (0.8-4.8); LYMPHOCYTES % (AUTO) 20.3 % (20.0-44.0); MEAN CORPUSCULAR HGB CONC 33 g/dl (31.0-36.0); MEAN CORPUSCULAR VOLUME 90 fL (80-96); MONOCYTES # (AUTO) 0.5 /CMM (0.1-1.30); MONOCYTES % (AUTO) 6.8 % (2.0-12.0); NEUTROPHILS # (AUTO) 5.2 /CMM (1.8-8.9); NEUTROPHILS % (AUTO) 70.9 % (43.0-81.0); PLATELET COUNT (AUTO) 171 /CMM (150-450); RED BLOOD CELL COUNT(AUTO) 3.15 MIL/uL (4.5-6.0); WHITE BLOOD COUNT (AUTO) 7.4 K/uL (4.3-11.0)
[2018-04-24 07:21] LABS: CALCIUM, SERUM 7.8 mg/dL (8.5-10.1); CARBON DIOXIDE 28 mmol/L (21-32); CHLORIDE 112 mmol/L (98-107); CREATININE 0.9 mg/dL (0.6-1.3); GLUCOSE 118 mg/dL (74-106); MAGNESIUM 1.9 mg/dL (1.8-2.4); PHOSPHORUS 2.8 mg/dL (2.5-4.9); POTASSIUM 3.8 mmol/L (3.5-5.1); SODIUM SERUM 147 mmol/L (136-145); UREA NITROGEN, BLOOD 20 mg/dL (7-18)
[2018-04-24] MEDS: NICOTINE PATCH (14MG) 14 MG PATCH.TD24 TD SCH (08:16)
[2018-04-24] MEDS: PANTOPRAZOLE 40 MG/PACK PACK NG SCH (08:16)
[2018-04-24] MEDS: NITROGLYCERIN 30 GM TUBE TP SCH ×2 (08:21→21:00)
--- NOTE | 2018-04-24 12:00 | NUR ---
RN NOTES SUPPORTIVE FAMILY AT THE BEDSIDE, VSS STABLE, NT SUCTIONING DONE , TOLERATING TF WELL , CONTINUE TO MONITOR.
[2018-04-24] MEDS: CEFTRIAXONE 1 G in IV D5W 50 ML IV SCH (14:43)
--- NOTE | 2018-04-24 18:40 | NUR ---
RN NOTES NO SIGNIFICANT CHANGES NOTED ON THIS SHIFT, WILL ENDOSE TO BOILER RIVETER NURSER FOR CONTINUITY OF CARE .
--- NOTE | 2018-04-24 20:00 | NUR ---
Received patient resting nonverbal in no acute distress.HOB elevated with O2 4L NC SPO2 98%.SR with PAC's per Tele monitoring.VS stable.GT feeding in progress.No residual noted.FC to gravity drainage with tea colored urine.BALAJI PICC LINE with NS infusing at TKO.Site intact.Turned and repositioned offloading pressure points.Continue monitoring.
[2018-04-25] VITALS: BP 147/68
[2018-04-25] MEDS: ACETYLCYSTEINE 10% SOLN 400 MG/4 ML VIAL NEB SCH ×4 (00:03→23:35)
[2018-04-25 04:00] VITALS: BP 149/61
[2018-04-25] MEDS: METRONIDAZOLE 500 MG TABLET GT SCH ×3 (04:30→20:58)
--- NOTE | 2018-04-25 06:40 | NUR ---
Aggressive pulmonary toilet done via right nasal trumpet.Obtained moderate thick yellow secretions.No respiratory distress noted.GT feeding well tolerated.AM care done.VS stable.SR with pac's.Turned and repositioned.No significant changes noted throughout the shift.Will endorse to day shift RN for continuity of care
[2018-04-25 06:56] LABS: BASOPHILS % (AUTO) 0.3 % (0.0-2.0); EOSINOPHILS % (AUTO) 1.8 % (0.0-6.0); HEMATOCRIT 28 % (39-51); HEMOGLOBIN 9.3 g/dL (13.5-17.5); LYMPHOCYTES # (AUTO) 1.3 /CMM (0.8-4.8); LYMPHOCYTES % (AUTO) 18.6 % (20.0-44.0); MEAN CORPUSCULAR HGB CONC 33 g/dl (31.0-36.0); MEAN CORPUSCULAR VOLUME 90 fL (80-96); MONOCYTES # (AUTO) 0.6 /CMM (0.1-1.30); MONOCYTES % (AUTO) 7.9 % (2.0-12.0); NEUTROPHILS # (AUTO) 5.1 /CMM (1.8-8.9); NEUTROPHILS % (AUTO) 71.4 % (43.0-81.0); PLATELET COUNT (AUTO) 171 /CMM (150-450); RED BLOOD CELL COUNT(AUTO) 3.09 MIL/uL (4.5-6.0); WHITE BLOOD COUNT (AUTO) 7.2 K/uL (4.3-11.0)
--- NOTE | 2018-04-25 07:10 | NUR ---
NITISH RN OPENING NOTES RECEIVED PT LYING ON BED.SLEEPY AND NON VERBAL.ON TELE HR IS 80'S SR WITH PAC.ON 4 L O2 VIA NC CONTINUOUSLY.NO SOB AND ACUTE DISTRESS NOTED.NASAL TRUMPET IS PRESENT.PICC LINE IS ON BALAJI.SITE IS CLEAN,DRY AND INTACT.NO INFILTRATION NOTED.SAFETY IS MAINTAINED AT ALL TIMES.BED IS IN LOW POSITION AND LOCKED.CALL LIGHT IS WITHIN REACH.WILL CONTINUE TO MONITOR THE PT CLOSELY.
[2018-04-25 07:23] LABS: CALCIUM, SERUM 7.7 mg/dL (8.5-10.1); CARBON DIOXIDE 29 mmol/L (21-32); CHLORIDE 113 mmol/L (98-107); GLUCOSE 142 mg/dL (74-106); MAGNESIUM 1.8 mg/dL (1.8-2.4); PHOSPHORUS 3.3 mg/dL (2.5-4.9); POTASSIUM 4.1 mmol/L (3.5-5.1); SODIUM SERUM 148 mmol/L (136-145); UREA NITROGEN, BLOOD 21 mg/dL (7-18)
[2018-04-25] MEDS: ALBUTEROL FS 2.5 MG/0.5 ML VIAL.NEB NEB PRN ×2 (07:26→14:55)
[2018-04-25 08:00] VITALS: BP 179/71
[2018-04-25] MEDS: PANTOPRAZOLE 40 MG/PACK PACK NG SCH (08:10)
[2018-04-25] MEDS: NICOTINE PATCH (14MG) 14 MG PATCH.TD24 TD SCH (08:11)
[2018-04-25] MEDS: NITROGLYCERIN 30 GM TUBE TP SCH ×2 (08:11→20:59)
[2018-04-25] MEDS ORDERED: FEE PK DOSING 1 MIN EA MC ONE (11:01)
[2018-04-25] MEDS: GENTAMICIN IV SCH ×2 (11:43→23:17)
[2018-04-25] MEDS: NS 0.9% IV SCH ×2 (11:43→23:17)
[2018-04-25 12:00] VITALS: BP 150/61
[2018-04-25] MEDS: CEFTRIAXONE 1 G in IV D5W 50 ML IV SCH (15:11)
[2018-04-25 16:00] VITALS: BP 163/71
--- NOTE | 2018-04-25 18:38 | NUR ---
MS RN CLOSING NOTES PT IS LYING ON BED,ON NC 4 L ,TOLERATING WELL.NO SOB AND ACUTE DISTRESS NOTED.SINUS RHYTHM WITH PAC.PT IS CLEAN AND DRY.ALL THE DUE MEDS ARE GIVEN.FREQUENT SUCTIONING IS CONTINUOS Q2 HRS AND PRN WITH MODERATE THICK YELLOW SECRETIONS.WITH B/L WRIST RESTRAINTS.NO SIGNIFICANT CHANGES NOTED IN THE SHIFT.ENDORSED TO SECURITY TRAINER RN FOR JERRY .
--- NOTE | 2018-04-25 19:57 | NUR ---
MS RN NOTES RECEIVED PATIENT AWAKE/ALERT IN BED WITH NO DISTRESS NOTED. PATIENT NON VERBAL AND NOTED WITH NO FACIAL GRIMACING OR GROANING TO INDICATE PAIN OR DISCOMFORT. DTR AT BEDSIDE. PICC LINE INTACT AND PATENT. GTF RUNNING AT 60ML/HR AND TOLERATING WELL. FC INTACT AND PATENT. BILATERAL SOFT WRIST RESTRAINTS INTACT WITH NO DISCOLORATION AND NOTED WITH GOOD CIRCULATION. BED IN LOW LOCK SETTING. WILL CONTINUE TO MONITOR.
[2018-04-25 20:00] VITALS: BP 148/76
[2018-04-25] MEDS: JEVITY 1.2 CAL 1,000 ML BOTTLE GT PRN (23:17)
[2018-04-26] VITALS: BP 133/70
[2018-04-26 04:00] VITALS: BP_SYST 126; BP_SYST 129; BP_DIAS 65
[2018-04-26] MEDS: METRONIDAZOLE 500 MG TABLET GT SCH ×2 (04:51→12:23)
--- NOTE | 2018-04-26 06:45 | NUR ---
MS RN NOTES PATIENT ASLEEP IN BED WITH NO DISTRESS NOTED. NO FACIAL GRIMACING OR GROANING TO INDICATE PAIN OR DISCOMFORT. ALL DUE MEDS GIVEN ORDERED WITH NO ASE NOTED. PICC LINE INTACT AND PATENT. GTF RUNNING AT 60ML/HR AND TOLERATING WELL. FC INTACT, PATENT, AND DRAINED 400ML CLEAR ALLEN URINE DURING SHIFT. BILATERAL SOFT WRIST RESTRAINTS RENEWAL ORDER OBTAINED. RESTRAINTS INTACT WITH NO DISCOLORATION AND NOTED WITH GOOD CIRCULATION. BED IN LOW LOCK SETTING. WILL ENDORSE TO ONCOMING SHIFT.
--- NOTE | 2018-04-26 07:05 | NUR ---
MS RN OPENING NOTES RECEIVED PT LYING ON BED.AWAKE AND NON VERBAL.ON 4 L O2 VIA NC CONTINUOUSLY.NO SOB AND ACUTE DISTRESS NOTED.NASAL TRUMPET IS PRESENT ON RIGHT NARES.PICC LINE IS ON BALAJI.SITE IS CLEAN,DRY AND INTACT.NO INFILTRATION NOTED.SAFETY IS MAINTAINED AT ALL TIMES.BED IS IN LOW POSITION AND LOCKED.CALL LIGHT IS WITHIN REACH.WILL CONTINUE TO MONITOR THE PT CLOSELY.
[2018-04-26] MEDS: ALBUTEROL FS 2.5 MG/0.5 ML VIAL.NEB NEB PRN ×2 (07:27→15:57)
[2018-04-26] MEDS: ACETYLCYSTEINE 10% SOLN 400 MG/4 ML VIAL NEB SCH ×2 (07:27→15:57)
[2018-04-26] MEDS: IPRATROPIUM NEB FS 0.5 MG/2.5 ML AMPUL.NEB NEB PRN ×2 (07:27→15:57)
[2018-04-26 07:37] LABS: BASOPHILS # (AUTO) 0.1 /CMM (0.0-0.2); BASOPHILS % (AUTO) 0.7 % (0.0-2.0); EOSINOPHILS % (AUTO) 1.9 % (0.0-6.0); HEMATOCRIT 28 % (39-51); HEMOGLOBIN 9.4 g/dL (13.5-17.5); LYMPHOCYTES # (AUTO) 1.9 /CMM (0.8-4.8); LYMPHOCYTES % (AUTO) 22.9 % (20.0-44.0); MEAN CORPUSCULAR HGB CONC 33 g/dl (31.0-36.0); MEAN CORPUSCULAR VOLUME 90 fL (80-96); MONOCYTES # (AUTO) 0.5 /CMM (0.1-1.30); MONOCYTES % (AUTO) 5.8 % (2.0-12.0); NEUTROPHILS # (AUTO) 5.6 /CMM (1.8-8.9); NEUTROPHILS % (AUTO) 68.7 % (43.0-81.0); PLATELET COUNT (AUTO) 185 /CMM (150-450); RED BLOOD CELL COUNT(AUTO) 3.15 MIL/uL (4.5-6.0); WHITE BLOOD COUNT (AUTO) 8.2 K/uL (4.3-11.0)
[2018-04-26 07:54] LABS: CALCIUM, SERUM 7.8 mg/dL (8.5-10.1); CARBON DIOXIDE 30 mmol/L (21-32); CHLORIDE 110 mmol/L (98-107); GLUCOSE 120 mg/dL (74-106); MAGNESIUM 1.7 mg/dL (1.8-2.4); PHOSPHORUS 3.3 mg/dL (2.5-4.9); POTASSIUM 4.3 mmol/L (3.5-5.1); SODIUM SERUM 145 mmol/L (136-145); UREA NITROGEN, BLOOD 20 mg/dL (7-18)
[2018-04-26 08:00] VITALS: BP 145/72
[2018-04-26] MEDS: NITROGLYCERIN 30 GM TUBE TP SCH (08:22)
[2018-04-26] MEDS: NICOTINE PATCH (14MG) 14 MG PATCH.TD24 TD SCH (08:22)
[2018-04-26] MEDS: PANTOPRAZOLE 40 MG/PACK PACK NG SCH (08:22)
[2018-04-26] MEDS: NS 0.9% IV SCH (11:23)
[2018-04-26] MEDS: GENTAMICIN IV SCH (11:23)
[2018-04-26] MEDS ORDERED: ACET650S11 RC (11:36)
[2018-04-26] MEDS ORDERED: ALBU2.5V13 NEB (11:36)
[2018-04-26] MEDS ORDERED: HYDR-3972 PO (11:36)
[2018-04-26] MEDS ORDERED: ACET1OOV6 NEB (11:36)
[2018-04-26] MEDS ORDERED: ACET325T53 PO (11:36)
[2018-04-26] MEDS ORDERED: IPRA0.2S9 NEB (11:37)
[2018-04-26] MEDS ORDERED: LACT-209 GT (11:37)
[2018-04-26] MEDS ORDERED: NICO-676 TD (11:37)
[2018-04-26] MEDS ORDERED: MAGN400O6 PO (11:37)
[2018-04-26] MEDS ORDERED: METR500T GT (11:37)
[2018-04-26] MEDS ORDERED: NITR1OIN2 TP (11:37)
[2018-04-26] MEDS ORDERED: PANT40SU2 NG (11:37)
[2018-04-26] MEDS: Magnesium 1GM/D5W 100ML PREMIX 100 ML IV SCH ×2 (12:13→13:48)
[2018-04-26] MEDS: CEFTRIAXONE 1 G in IV D5W 50 ML IV SCH (15:11)
[2018-04-26 16:00] VITALS: BP 156/64
--- NOTE | 2018-04-26 17:50 | NUR ---
MS ACADEMIC INTERN NOTES PT IS READY TO DISCHARGE TO [facility].G TUBE AND FC IS IN PLACE.PICC LINE ON RIGHT UA.ON NC 4LO2 VIA NC CONTINUOUSLY.NO SOB AND ACUTE DISTRESS NOTED.VITAL SIGNS CHECKED AND RECORDED.SKIN ASSESSMENT IS DONE AND PT IS CLEAN AND DRY.ALL DUE MEDS ARE GIVEN.REPORT GIVEN TO MASON LOPEZ IN SNF.FAMILY IS AT BEDSIDE.NO COMPLICATIONS NOTED.
== END 2018-04-26 17:54 | DRG 208 ==
LOC: TELE 11:57 → ICU 04-20 12:36 → TELE-TD 04-23 18:37 → MEDSG1 04-25 15:35
PROVIDERS: ADMIT Nurse Practitioner Acute Care
PROC: 02HV33Z Insertion of Infusion Device into Superior Vena Cava, Percutaneous Approach (ICD-10-PCS; 2018-04-19)
PROC: B548ZZA Ultrasonography of Superior Vena Cava, Guidance (ICD-10-PCS; 2018-04-19)
PROC: 5A1945Z Respiratory Ventilation, 24-96 Consecutive Hours (ICD-10-PCS; principal; 2018-04-20)
PROC: 0BH17EZ Insertion of Endotracheal Airway into Trachea, Via Natural or Artificial Opening (ICD-10-PCS; 2018-04-20)
DX: J69.0 Pneumonitis due to inhalation of food and vomit (principal); J96.01 Acute respiratory failure with hypoxia; G92 Toxic encephalopathy; I50.33 Acute on chronic diastolic (congestive) heart failure; K22.10 Ulcer of esophagus without bleeding; E87.1 Hypo-osmolality and hyponatremia; K22.8 Other specified diseases of esophagus; Y92.9 Unspecified place or not applicable; K31.89 Other diseases of stomach and duodenum; R13.10 Dysphagia, unspecified; I25.10 Atherosclerotic heart disease of native coronary artery without angina pectoris; D63.8 Anemia in other chronic diseases classified elsewhere; N40.0 Benign prostatic hyperplasia without lower urinary tract symptoms; Z87.11 Personal history of peptic ulcer disease; F09 Unspecified mental disorder due to known physiological condition; F03.90 Unspecified dementia, unspecified severity, without behavioral disturbance, psychotic disturbance, mood disturbance, and anxiety; I11.0 Hypertensive heart disease with heart failure; Z93.1 Gastrostomy status; Z78.1 Physical restraint status; T54.3X1D Toxic effect of corrosive alkalis and alkali-like substances, accidental (unintentional), subsequent encounter
CPT/HCPCS: 31720; 36415; 36600; 70450-TC; 71045-TC; 80048-TC; 80053-TC; 80061-TC; 80170-TC; 82040-TC; 82803-TC; 82962-TC; 83605-TC; 83735-TC; 84100-TC; 84484-TC; 85025-TC; 85610-TC; 85730-TC; 87040-TC; 87070-TC; 87081-TC; 87086-TC; 87186-TC; 94002-TC; 94003-TC; 94760-TC; 94799-TC; A4216; A4624; C9113; G0378; J0360; J0696; J1580; J1940; J3475; J3490; J7030; J7040; J7050; J7060; Q9967

== ENCOUNTER 2018-04-28 17:02 | Emergency (ER) | payer MEDICARE, OTHER ==
[~2018-04-28] VITALS: Ht 170.2 cm; Wt 76.2 kg
[~2018-04-28 17:02] MED LIST: ACET1OOV6 NEB; ACET325T53 PO; ACET650S11 RC; ALBU2.5V13 NEB; HYDR-3972 PO; IPRA0.2S9 NEB; LACT-209 GT; MAGN400O6 PO; METR500T GT; NICO-676 TD; NITR1OIN2 TP; PANT40SU2 NG
[2018-04-28] MEDS ORDERED: IV NS 0.9% 1,000 ML BAG IV ONE (17:30)
[2018-04-28 17:46] LABS: BASOPHILS # (AUTO) 0.1 /CMM (0.0-0.2); BASOPHILS % (AUTO) 0.5 % (0.0-2.0); EOSINOPHILS % (AUTO) 0.8 % (0.0-6.0); HEMATOCRIT 32 % (39-51); HEMOGLOBIN 10.2 g/dL (13.5-17.5); LYMPHOCYTES # (AUTO) 2.4 /CMM (0.8-4.8); LYMPHOCYTES % (AUTO) 14.2 % (20.0-44.0); MEAN CORPUSCULAR HGB CONC 32 g/dl (31.0-36.0); MEAN CORPUSCULAR VOLUME 90 fL (80-96); MONOCYTES % (AUTO) 5.8 % (2.0-12.0); NEUTROPHILS # (AUTO) 13.3 /CMM (1.8-8.9); NEUTROPHILS % (AUTO) 78.7 % (43.0-81.0); PLATELET COUNT (AUTO) 254 /CMM (150-450); RED BLOOD CELL COUNT(AUTO) 3.54 MIL/uL (4.5-6.0); WHITE BLOOD COUNT (AUTO) 16.9 K/uL (4.3-11.0)
--- NOTE | 2018-04-28 17:52 | NUR ---
CHASITY [facility] unit [facility] "From [facility] dislodged, PT NON VERBAL, RESPONDS TO TOUCH, NASAL SUCTION Q2 HRS, DONE BY LILLY PRESLEY. PT HAS DBL LUMEN PICC R FA
[2018-04-28 17:55] LABS: CALCIUM, SERUM 8.3 mg/dL (8.5-10.1); CARBON DIOXIDE 29 mmol/L (21-32); CHLORIDE 107 mmol/L (98-107); CREATININE 0.9 mg/dL (0.6-1.3); GLUCOSE 113 mg/dL (74-106); POTASSIUM 4.5 mmol/L (3.5-5.1); SODIUM SERUM 138 mmol/L (136-145); UREA NITROGEN, BLOOD 21 mg/dL (7-18)
[2018-04-28 18:00] LABS: ALANINE AMINOTRANSFERASE 19 U/L (12-78); ALBUMIN 1.9 g/dL (3.4-5.0); ALKALINE PHOSPHATASE 106 U/L (46-116); ASPARTATE AMINOTRANSFERASE 25 U/L (15-37); BILIRUBIN,DIRECT 0.1 mg/dL (0.0-0.2); BILIRUBIN,TOTAL 0.2 mg/dL (0.2-1.0); TOTAL PROTEIN, SERUM 5.8 g/dL (6.4-8.2)
[2018-04-28] MEDS ORDERED: hydrALAZINE HCL IV 20 MG VIAL ONE (19:17)
[2018-04-28] MEDS ORDERED: hydrALAZINE HCL IV 20 MG VIAL IV ONE (19:30)
--- NOTE | 2018-04-28 19:30 | NUR ---
AWAITING DC BACK TO [facility], MEDS GIVEN 10 MG HYDRALAZINE IV PUSH PICC LIBNR R BICEP
--- NOTE | 2018-04-28 19:41 | NUR ---
[facility] CALLED FOR TRANSPORT. ETA [id number] TRIP# [id number]
--- NOTE | 2018-04-28 19:44 | NUR ---
PT HANDOFF TO JORDAN RN, PT STABLE AWAITING TRANSPORT BACK TO [facility]
[2018-04-28 20:53] VITALS: BP 145/75
--- NOTE | 2018-04-28 21:09 | NUR ---
REPORT GIVEN TO WILL FOR JERRY
--- NOTE | 2018-05-04 14:27 | NUR ---
NS 1L STOP TIME 1800 HRS Addendum: 05/04/18 at 1428 by OPAL NS STOP TIME 1900 HRS
== END 2018-04-28 21:15 ==
LOC: ER 17:04
DX: Z46.89 Encounter for fitting and adjustment of other specified devices (principal); R60.0 Localized edema; E86.0 Dehydration; F03.90 Unspecified dementia, unspecified severity, without behavioral disturbance, psychotic disturbance, mood disturbance, and anxiety; I10 Essential (primary) hypertension; Z98.890 Other specified postprocedural states; Z79.4 Long term (current) use of insulin
CPT/HCPCS: 31720; 36415; 71045-TC; 80048-TC; 80076-TC; 85025-TC; J0360; J7030